=== PATIENT | male | born 1995 | race Caucasian/White ===

== ENCOUNTER 2018-02-03 02:15 | Inpatient (IN) | payer BC, OTHER ==
[2018-02-03] VITALS (12 sets, daily range): BP systolic 118–150; BP diastolic 57–80; PULSE 62–90; RESP 18–25; TEMP 97.6–98.5; O2SAT 90–100
[~2018-02-03] VITALS: Ht 188 cm; Wt 84.8 kg
[2018-02-03] MEDS ORDERED: IOHEXOL 350 MG/ML 10 ML VIAL (for RAD DIAG) IVCONTRAST ONE (02:43)
[2018-02-03 02:45] LABS: HEMATOCRIT 43.6 % (39.0-51.0); MEAN CELL VOLUME 90.6 FL (80.0-100.0); MEAN CORPUSCULAR HEMOGLOBIN 31.3 PG (27.0-34.0); MEAN CORPUSCULAR HGB CONC 34.5 % (32.0-36.0); MEAN PLATELET VOLUME 9.2 FL (7.0-11.0); PLATELET COUNT 291 TH/MM3 (150-450); RED BLOOD COUNT 4.81 MIL/MM3 (4.50-5.90); RED CELL DISTRIBUTION WIDTH 13.6 % (11.6-17.2)
[2018-02-03 02:56] LABS: INTERNATIONAL NORMALIZED RATIO 1.1 RATIO; PROTHROMBIN TIME - PATIENT 11.2 SEC (9.8-11.6)
[2018-02-03] MEDS ORDERED: MISCELLANEOUS NURSING INFORMATION XX SCH (03:00)
[2018-02-03] MEDS ORDERED: CHLORHEXIDINE GLUCONATE 2 % 1 PACK (2 CLOTHS) TOP PRN (03:00)
[2018-02-03] MEDS ORDERED: ACETAMINOPHEN/HYDROcodone 325 MG/5 MG TAB PO PRN (03:00)
[2018-02-03] MEDS ORDERED: ENALAPRILAT 1.25 MG/ML VIAL IV PUSH PRN (03:00)
--- NOTE | 2018-02-03 03:12 | RADRPT ---
EXAM DATE/TIME: 02/03/2018 02:32 [facility] COMPARISON: No previous studies available for comparison. INDICATIONS : Trauma; fall. RADIATION DOSE: 55.09 CTDIvol (mGy) MEDICAL HISTORY : Non-responsive. SURGICAL HISTORY : Non-responsive. ENCOUNTER: Initial ACUITY: 1 day PAIN SCALE: Non-responsive LOCATION: cranial TECHNIQUE: Multiple contiguous axial images were obtained of the head. Using automated exposure control and adj ustment of the mA and/or kV according to patient size, radiation dose was kept as low as reasonably a chievable to obtain optimal diagnostic quality images. DICOM format image data is available electro nically for review and comparison. FINDINGS: CEREBRUM: The ventricles are normal for age. No evidence of midline shift, mass lesion, hemorrhage or acute in farction. No extra-axial fluid collections are seen. POSTERIOR FOSSA: The cerebellum and brainstem are intact. The 4th ventricle is midline. The cerebellopontine angle i s unremarkable. EXTRACRANIAL: The visualized portion of the orbits is intact. SKULL: The calvaria is intact. No evidence of skull fracture. CONCLUSION: No acute intracranial disease. Shelton Dunham MD on February 03, 2018 at 3:08 Board Certified Radiologist. This report was verified electronically.
--- NOTE | 2018-02-03 03:13 | RADRPT ---
EXAM DATE/TIME: 02/03/2018 02:32 [facility] COMPARISON: No previous studies available for comparison. INDICATIONS : Trauma; fall RADIATION DOSE: 18.08 CTDIvol (mGy) MEDICAL HISTORY : Non-responsive. SURGICAL HISTORY : Non-responsive. ENCOUNTER: Initial ACUITY: 1 day PAIN SCALE: Non-responsive LOCATION: neck TECHNIQUE: Volumetric scanning of the cervical spine was performed. Multiplanar reconstructions in the sagittal, coronal and oblique axial planes were performed. Using automated exposure control and adjustment o f the mA and/or kV according to patient size, radiation dose was kept as low as reasonably achievable to obtain optimal diagnostic quality images. DICOM format image data is available electronically f or review and comparison. FINDINGS: VERTEBRAE: Normal vertebral body height. Left first and second rib fracture ALIGNMENT: No evidence of subluxation. C2-C3: The bony spinal canal is normal in size. No evidence of disc bulge or herniation. The neural forami na are bilaterally patent. C3-C4: The bony spinal canal is normal in size. No evidence of disc bulge or herniation. The neural forami na are bilaterally patent. C4-C5: The bony spinal canal is normal in size. No evidence of disc bulge or herniation. The neural forami na are bilaterally patent. C5-C6: The bony spinal canal is normal in size. No evidence of disc bulge or herniation. The neural forami na are bilaterally patent. C6-C7: The bony spinal canal is normal in size. No evidence of disc bulge or herniation. The neural forami na are bilaterally patent. C7-T1: The bony spinal canal is normal in size. No evidence of disc bulge or herniation. The neural forami na are bilaterally patent. CONCLUSION: 1. No fracture or subluxation. 2. Fracture of the first and second ribs on the left. Shelton Dunham MD on February 03, 2018 at 3:09 Board Certified Radiologist. This report was verified electronically.
--- NOTE | 2018-02-03 03:16 | RADRPT ---
EXAM DATE/TIME: 02/03/2018 02:39 [facility] COMPARISON: No previous studies available for comparison. INDICATIONS : Trauma. Fall. IV CONTRAST: 96 cc Omnipaque 350 (iohexol) IV ; Cumulative dose for multiple exams. ORAL CONTRAST: No oral contrast ingested. RADIATION DOSE: 18.72 CTDIvol (mGy) ; Combined studies - Thorax/Abdomen/Pelvis MEDICAL HISTORY : Non-responsive. SURGICAL HISTORY : Non-responsive. ENCOUNTER: Initial ACUITY: 1 day PAIN SCALE: Non-responsive LOCATION: abdomen TECHNIQUE: Volumetric scanning of the abdomen and pelvis was performed. Using automated exposure control and ad justment of the mA and/or kV according to patient size, radiation dose was kept as low as reasonably achievable to obtain optimal diagnostic quality images. DICOM format image data is available electro nically for review and comparison. FINDINGS: LOWER LUNGS: Clear lungs LIVER: Homogeneous density without lesion. There is no dilation of the biliary tree. No calcified gallston es. SPLEEN: Normal size without lesion. PANCREAS: Within normal limits. KIDNEYS: Normal in size and shape. There is no mass, stone or hydronephrosis. ADRENAL GLANDS: Within normal limits. VASCULAR: There is no aortic aneurysm. BOWEL/MESENTERY: The stomach, small bowel, and colon demonstrate no acute abnormality. There is no free intraperitone al air or fluid. ABDOMINAL WALL: Within normal limits. RETROPERITONEUM: There is no lymphadenopathy. BLADDER: No wall thickening or mass. REPRODUCTIVE: Within normal limits. INGUINAL: There is no lymphadenopathy or hernia. MUSCULOSKELETAL: There is fracture of L3 vertebral body with mild loss of height. There appears to be involvement of t he posterior elements. Fracture right L2 transverse process. CONCLUSION: 1. Fracture L3 vertebral body with possible involvement of the posterior elements. 2. No abdominal visceral injury. Shelton Dunham MD on February 03, 2018 at 3:10 Board Certified Radiologist. This report was verified electronically.
--- NOTE | 2018-02-03 03:19 | RADRPT ---
EXAM DATE/TIME: 02/03/2018 02:39 [facility] COMPARISON: No previous studies available for comparison. INDICATIONS : Trauma..Fall IV CONTRAST: 86 cc Omnipaque 350 (iohexol) IV ; Cumulative dose for multiple exams. RADIATION DOSE: 18.72 CTDIvol (mGy) ; Combined studies - Thorax/Abdomen/Pelvis MEDICAL HISTORY : Non-responsive. SURGICAL HISTORY : Non-responsive. ENCOUNTER: Initial ACUITY: 1 day PAIN SCALE: LOCATION: chest TECHNIQUE: Volumetric scanning of the chest was performed. Using automated exposure control and adjustment of t he mA and/or kV according to patient size, radiation dose was kept as low as reasonably achievable to obtain optimal diagnostic quality images. DICOM format image data is available electronically for review and comparison. Follow-up recommendations for detected pulmonary nodules are based at a minimum on nodule size and pa tient risk factors according to Fleischner Society Guidelines. FINDINGS: LUNGS: There is no consolidation or pneumothorax. No concerning pulmonary nodule is visualized. PLEURA: There is no pleural thickening or pleural effusion. MEDIASTINUM: The heart and great vessels demonstrate no acute abnormality. There is no mediastinal or hilar lymph adenopathy. AXILLAE: Within normal limits. No lymphadenopathy. SKELETAL: Fractures of the left first and second ribs. MISCELLANEOUS: The visualized upper abdominal organs demonstrate no acute abnormality. CONCLUSION: 1. Left first and second rib fractures. 2. No pneumothorax. Shelton Dunham MD on February 03, 2018 at 3:14 Board Certified Radiologist. This report was verified electronically.
[2018-02-03 03:22] LABS: BASOPHILS 1 % (0-2); LYMPHOCYTES 54 % (9-44); MONOCYTES 6 % (0-8); NEUTROPHIL # MANUAL DIFF 6.5 TH/MM3 (1.8-7.7); POLYS (SEG NEUTROPHILS) 38 % (16-70)
[2018-02-03] MEDS: CHLORHEXIDINE GLUCONATE 2 % 1 PACK (2 CLOTHS) TOP SCH (03:22)
--- NOTE | 2018-02-03 03:22 | RADRPT ---
EXAM DATE/TIME: 02/03/2018 02:39 [facility] COMPARISON: No previous studies available for comparison. INDICATIONS : Trauma. Fall. IV CONTRAST: 96 cc Omnipaque 350 (iohexol) IV ; Cumulative dose for multiple exams. RADIATION DOSE: ; Reconstructed from previous dataset, no dose MEDICAL HISTORY : Non-responsive. SURGICAL HISTORY : Non-responsive. ENCOUNTER: Initial ACUITY: 1 day PAIN SCALE: Non-responsive LOCATION: lumbar TECHNIQUE: Volumetric scanning of the lumbar spine was performed. Multiplanar reconstructions in the sagittal, coronal and oblique axial planes were performed. Using automated exposure control and adjustment of the mA and/or kV according to patient size, radiation dose was kept as low as reasonably achievable t o obtain optimal diagnostic quality images. DICOM format image data is available electronically for review and comparison. FINDINGS: CONUS MEDULLARIS: Normal. PARASPINAL SOFT TISSUES: There is fracture of L3 vertebral body extending into the posterior elements bilaterally. Mild loss o f height. No retropulsion of posterior fragments. There is minimal fracture right L2 transverse proce ss. LUMBAR CORD: Normal. DURAL SAC: Normal. L1-L2: The disc, uncovertebral joints, central canal, foramina, and facets are normal. L2-L3: The disc, uncovertebral joints, central canal, foramina, and facets are normal. There is frac ture of L3 vertebral body extending into the posterior elements L3-L4: Mild broad-based disc bulge without canal stenosis. L4-L5: The disc, uncovertebral joints, central canal, foramina, and facets are normal. L5-S1: The disc, uncovertebral joints, central canal, foramina, and facets are normal. CONCLUSION: 1. Fracture of L3 vertebral body with mild loss of height. Fracture does extend into the both posteri or elements. 2. Fracture of the right L2 transverse process. Shelton Dunham MD on February 03, 2018 at 3:18 Board Certified Radiologist. This report was verified electronically.
[2018-02-03] MEDS: SODIUM CHLOR 0.9% 1000 ML INJ 1,000 ML IV SCH ×3 (03:23→18:51)
[2018-02-03] MEDS: MORPHINE SULFATE 2 MG/ML INJ IV PUSH PRN ×5 (03:26→21:52)
--- NOTE | 2018-02-03 03:27 | RADRPT ---
EXAM DATE/TIME: 02/03/2018 02:16 [facility] COMPARISON: No previous studies available for comparison. INDICATIONS : Fall, trauma alert. MEDICAL HISTORY : None. SURGICAL HISTORY : None. ENCOUNTER: Initial ACUITY: 1 day PAIN SCORE: 0/10 LOCATION: Bilateral chest FINDINGS: A single view of the chest demonstrates the lungs to be symmetrically aerated without evidence of mas s, infiltrate or effusion. The cardiomediastinal contours are unremarkable. Osseous structures are intact. CONCLUSION: No acute disease. Shelton Dunham MD on February 03, 2018 at 3:25 Board Certified Radiologist. This report was verified electronically.
--- NOTE | 2018-02-03 03:27 | RADRPT ---
EXAM DATE/TIME: 02/03/2018 02:16 [facility] COMPARISON: No previous studies available for comparison. INDICATIONS : Fall, trauma alert. MEDICAL HISTORY : None. SURGICAL HISTORY : None. ENCOUNTER: Initial ACUITY: 1 day PAIN SCORE: 0/10 LOCATION: Bilateral pelvis FINDINGS: A single frontal view of the pelvis demonstrates no evidence of fracture. The bony pelvic ring is in tact. Bony mineralization is normal. The soft tissues are intact. CONCLUSION: No acute fracture. Shelton Dunham MD on February 03, 2018 at 3:25 Board Certified Radiologist. This report was verified electronically.
--- NOTE | 2018-02-03 03:30 | RADRPT ---
EXAM DATE/TIME: 02/03/2018 02:16 [facility] COMPARISON: No previous studies available for comparison. INDICATIONS : Fall, trauma alert. MEDICAL HISTORY : SURGICAL HISTORY : None. ENCOUNTER: Initial ACUITY: 1 day PAIN SCORE: 0/10 LOCATION: Left forearm FINDINGS: Two view examination of the left forearm demonstrates displaced fractures of the mid shafts of the ra dius and ulna. There also appears to be fracture of triquetrum carpal bone. Bony mineralization is n ormal. The soft tissue structures are intact. CONCLUSION: 1. Displaced fractures of midshaft radius and ulna. 2. There also appears to be fractures of triquetrum carpal bone. Shelton Dunham MD on February 03, 2018 at 3:25 Board Certified Radiologist. This report was verified electronically.
--- NOTE | 2018-02-03 03:31 | RADRPT ---
EXAM DATE/TIME: 02/03/2018 02:16 [facility] COMPARISON: No previous studies available for comparison. INDICATIONS : Fall trauma alert. MEDICAL HISTORY : None. SURGICAL HISTORY : None. ENCOUNTER: Initial ACUITY: 1 day PAIN SCORE: 0/10 LOCATION: Right forearm FINDINGS: Two view examination of the right forearm demonstrates no evidence of fracture or dislocation. There does appear to be possible dislocation of the carpus. Bony mineralization is normal. The soft tissu e structures are intact. CONCLUSION: No acute fracture of the forearm. Appears to be dislocation at the wrist. Dedicated views of the wris t is recommended. Shelton Dunham MD on February 03, 2018 at 3:27 Board Certified Radiologist. This report was verified electronically.
--- NOTE | 2018-02-03 03:37 | RADRPT ---
EXAM DATE/TIME: 02/03/2018 02:39 [facility] COMPARISON: No previous studies available for comparison. INDICATIONS : Trauma. Fall. IV CONTRAST: 96 cc Omnipaque 350 (iohexol) IV ; Cumulative dose for multiple exams. RADIATION DOSE: ; Reconstructed from previous dataset, no dose MEDICAL HISTORY : Non-responsive. SURGICAL HISTORY : Non-responsive. ENCOUNTER: Initial ACUITY: 1 day PAIN SCALE: Non-responsive LOCATION: thoracic TECHNIQUE: Volumetric scanning of the thoracic spine was performed. Multiplanar reconstructions in the sagittal , coronal and oblique axial planes were performed. Using automated exposure control and adjustment o f the mA and/or kV according to patient size, radiation dose was kept as low as reasonably achievable to obtain optimal diagnostic quality images. DICOM format image data is available electronically fo r review and comparison. FINDINGS: The vertebral bodies of the thoracic spine are in normal alignment without evidence of subluxation. Vertebral body height is maintained. No fractures are seen. Minimal fracture lower sternum. Fracture s of the left or second ribs T1-T2: Normal. T2-T3: The thecal sac has a normal diameter. No evidence of disc bulge or protrusion. T3-T4: The thecal sac has a normal diameter. No evidence of disc bulge or protrusion. T4-T5: The thecal sac has a normal diameter. No evidence of disc bulge or protrusion. T5-T6: The thecal sac has a normal diameter. No evidence of disc bulge or protrusion. T6-T7: The thecal sac has a normal diameter. No evidence of disc bulge or protrusion. T7-T8: The thecal sac has a normal diameter. No evidence of disc bulge or protrusion. T8-T9: The thecal sac has a normal diameter. No evidence of disc bulge or protrusion. T9-T10: The thecal sac has a normal diameter. No evidence of disc bulge or protrusion. T10-T11: The thecal sac has a normal diameter. No evidence of disc bulge or protrusion. T11-T12: The thecal sac has a normal diameter. No evidence of disc bulge or protrusion. T12-L1: The thecal sac has a normal diameter. No evidence of disc bulge or protrusion. CONCLUSION: 1. Fractures of the left first and second ribs. 2. Minimal fracture of the lower sternum. 3. No compression fracture of thoracic spine. Shelton Dunham MD on February 03, 2018 at 3:30 Board Certified Radiologist. This report was verified electronically.
[2018-02-03] MEDS: MULTIVITAMIN INJ 10 ML, THIAMINE INJ 100 MG, FOLIC ACID INJ 1 MG in SODIUM CHLORID 0.9%... IV SCH (05:30)
[2018-02-03] MEDS: ACETAMINOPHEN/HYDROcodone 325 MG/5 MG TAB PO PRN ×4 (05:54→23:43)
[2018-02-03] MEDS ORDERED: RESP: ALBUTEROL 2.5 MG/IPRATROPIUM 0.5 MG NEB (PRN) NEB (06:45)
[2018-02-03] MEDS: LIDOCAINE HCL 5% PATCH T-DERMAL SCH (08:25)
[2018-02-03] MEDS: DOCUSATE SODIUM 100 MG CAP PO SCH ×2 (08:25→21:51)
[2018-02-03] MEDS: METHOCARBAMOL 500 MG TAB PO SCH ×3 (08:25→21:52)
[2018-02-03] MEDS: ONDANSETRON HCL 4 MG/2 ML VIAL IV PUSH PRN ×3 (08:26→21:52)
[2018-02-03] MEDS: SODIUM CHLORIDE FLUSH BID IV FLUSH SCH ×2 (08:26→21:53)
[2018-02-03] MEDS: PANTOPRAZOLE SODIUM 40 MG VIAL IVP SCH (08:26)
--- NOTE | 2018-02-03 09:39 | RADRPT ---
EXAM DATE/TIME: 02/03/2018 09:15 [facility] COMPARISON: FOREARM RIGHT (2VWS), February 03, 2018, 2:16. INDICATIONS : Right wrist pain, trauma alert. MEDICAL HISTORY : None. SURGICAL HISTORY : None. ENCOUNTER: Subsequent ACUITY: 1 day PAIN SCORE: 7/10 LOCATION: Right Wrist FINDINGS: Limited AP and lateral views of the right wrist were obtained. The wrist has been casted obscuring th e fine bony detail. The lateral view is mildly obliqued. There is a nondisplaced fracture through the base of the ulnar styloid. There is evidence of dislocation of the carpus with the capitate dislocat ed posteriorly with respect to the lunate. The scapholunate distance is abnormally wide and measures up to approximately 6-7 mm. No distinct carpal bone fracture is identified. The distal radius is inta ct. The visualized portions of the hand appear intact as well. CONCLUSION: 1. Limited two-view rotated exam. 2. Carpal dislocation. 3. Abnormal widening of the scapholunate distance consistent with scapholunate ligament tear. 4. Nondisplaced fracture through the base of the ulnar styloid. Lucas Tavarez MD on February 03, 2018 at 9:32 Board Certified Radiologist. This report was verified electronically.
[2018-02-03] MEDS: RESP: ALBUTEROL 2.5 MG/IPRATROPIUM 0.5 MG NEB (SCH) NEB ×3 (11:01→21:22)
--- NOTE | 2018-02-03 11:21 | PD.CONS ---
(J Carlos Sauer) [facility] Service Neurosurgery Consult Requested By Desmond Guidry MD Reason for Consult Lumbar spine fracture Primary Care Physician Unknown History of Present Illness Patient states that he was at [employer] with friends which is the last thing he remembers. The next thing he remembers is waking up in the bed in the [facility]SC unit. He does have some pain to the lower back and the neck. He denies any numbness or tingling to the extremities except for the fingertips. Mechanism unknown. (J Carlos Sauer) Review of Systems CONSTITUTIONAL: Denies. INTEGUMENTARY: Abrasions to the right ankle and hands. HEENT: Denies. NECK: Some pain to the back of the neck. RESPIRATORY/CHEST WALL: Some pain to the mid chest wall. CARDIOVASCULAR: Denies. GASTROINTESTINAL: Denies. GENITOURINARY: Denies. MUSCULOSKELETAL: Pain to the lower back and both forearms. HAEMATOLOGICAL/LYMPHATIC: Denies. PSYCHIATRIC: Denies. NEUROLOGICAL: Numbness to the digits of both hands. (J Carlos Sauer) Past Family Social History Allergies: Coded Allergies: No Known Allergies (Unverified , 02/03/18) Past Medical History None Past Surgical History Left knee (multiple) Appendectomy Reported Medications None Active Ordered Medications Current Medications Medications (Trade) Dose Ordered Sig/Joselito Route Start Time Stop Time Status Last Admin Sodium Chloride 1,000 ml @ 125 mls/hr Q8H IV 02/03/18 02:51 02/03/18 10:51 (NS Flush) 2 ml UNSCH PRN IV FLUSH 02/03/18 03:00 (Morphine Inj) 2 mg Q3H PRN IV PUSH 02/03/18 03:15 02/03/18 08:25 (Atkinson 5-325 Mg) 1 tab Q4H PRN PO 02/03/18 03:00 (Atkinson 5-325 Mg) 2 tab Q4H PRN PO 02/03/18 03:00 02/03/18 05:54 (Vasotec Inj) 1.25 mg Q8H PRN IV PUSH 02/03/18 03:00 (Zofran Inj) 4 mg Q6H PRN IV PUSH 02/03/18 03:00 02/03/18 08:26 (Protonix Inj) 40 mg Q24H IVP 02/03/18 09:00 02/03/18 08:26 Multivitamins 10 ml/Thiamine HCl 100 mg/Folic Acid 1 mg/Sodium Chloride 511.2 ml @ 125 mls/hr Q24H IV 02/03/18 05:00 02/05/18 09:06 02/03/18 05:30 (Colace) 100 mg BID PO 02/03/18 09:00 02/03/18 08:25 (Milk Of Magnesia Liq) 30 ml Q6H PRN PO 02/03/18 03:00 Miscellaneous Information 1 Q361D XX 02/03/18 03:00 (Chlorhexidine 2% Cloth) 3 pack Taper DAILY@04 TOP 02/03/18 04:00 01/30/19 03:59 (Chlorhexidine 2% Cloth) 3 pack UNSCH PRN TOP 02/03/18 03:00 (NS Flush) 2 ml BID IV FLUSH 02/03/18 09:00 02/03/18 08:26 (Robaxin) 500 mg Q8HR PO 02/03/18 06:45 02/03/18 08:25 (Lidoderm 5% Patch.12 Hr) 1 patch DAILY T-DERMAL 02/03/18 09:00 02/03/18 08:25 (Duoneb Neb) 1 ampule Q6HR NEB NEB 02/03/18 10:00 02/03/18 11:01 (Duoneb Neb) 1 ampule Q2HR NEB PRN NEB 02/03/18 06:45 Miscellaneous Information 1 Q24H T-DERMAL 02/03/18 21:00 Family History Father: Type II diabetes mellitus Paternal grandfather: Heart problems Maternal grandmother: Colon cancer Social History Student, lives on campus ([employer] in [place]) Denies tobacco Positive EtOH Denies any illicit drug use (J Carlos Sauer) Physical Exam Vital Signs Vital Signs Date Time Temp Pulse Resp B/P (MAP) Pulse Ox O2 Delivery O2 Flow Rate FiO2 02/03/18 08:30 24 02/03/18 06:00 62 3/26/18 04:00 97.6 78 23 118/57 (77) 96 02/03/18 03:00 97.6 90 18 135/80 (98) 97 02/03/18 03:00 80 02/03/18 03:00 Room Air Physical Exam GENERAL: Well-developed, well-nourished male who appears his stated age. SKIN: Abrasions to the digits of both hands and to the right lateral malleolus. Superficial suprapubic and RUQ abrasions. HEENT: Normocephalic, atraumatic. PERRLA 3 mm brisk, EOMI. Bilateral TMs clear & pearly ely, no external canal lesions bilaterally, no otorrhea. Bilateral nares moist & pink, no rhinorrhea. MMM & pink, no evident oral lesions, uvula midline, tongue midline to protrusion. NECK: [place] J cervical collar in place. Mild TTP at the cervicothoracic junction w/tenderness to the right side of the area upon rotation of the neck to the left. Neck supple. No nuchal rigidity. No JVD. Trachea midline. RESPIRATORY/CHEST WALL: CTAB w/o W/R/R, equal excursion, nonlaboured, on RA. Mid -to-lower sternum TTP o/w the chest wall is NTTP. CARDIOVASCULAR: S1S2 w/RRR w/o M/G/R, pedal pulses 2+ bilaterally but unable to check radials due to splints, cap refill < 2 sec, no pedal edema. Monitor is sinus rhythm w/o any ectopy noted. GASTROINTESTINAL: Abdomen soft, nontender, no palpable masses or organomegaly, positive bowel sounds to all quadrants. GENITOURINARY: Normal male genitalia. [place] catheter to BSD w/clear yellow urine. MUSCULOSKELETAL: Bilateral forearms in splints. Bilateral arms & lower extremities NTTP. Moves digits of both hands w/o difficulty. Moves BLE w/o any difficulty. Mildly TTP to the upper midline thoracic spine. Moderately TTP to the mdiline lumbar spine decreasing as palpated inferiorly. Pelvis stable & NTTP. HAEMATOLOGICAL/LYMPHATIC: No bruising noted. No swollen glands palpated. PSYCHIATRIC: Normal affect. Readily interacts. NEUROLOGICAL: AAOx3. Speech clear & appropriate. Follows simple commands w/o difficulty. CN II through XII grossly intact. Sensation decreased to digits of both hands o/w intact to light touch to all extremities. Unable to asses motor strength of BUE due to injuries but does move digits of both hands without difficulty. Motor strength of BLE is 5/5 to all major flexion & extension muscle groups. No Brenda's on right but unable to assess left due to thumb being in splint. No ankle clonus bilaterally. Neutral Babinski bilaterally. Laboratory Laboratory Tests Test 02/03/18 02:20 02/03/18 03:00 White Blood Count 17.0 Red Blood Count 4.81 Hemoglobin 15.0 Bedside Hemoglobin 14.6 Hematocrit 43.6 Bedside Hematocrit 43.0 Mean Corpuscular Volume 90.6 Mean Corpuscular Hemoglobin 31.3 Mean Corpuscular Hemoglobin Concent 34.5 Red Cell Distribution Width 13.6 Platelet Count 291 Mean Platelet Volume 9.2 CBC Comment AUTO DIFF Differential Total Cells Counted 100 Neutrophils % (Manual) 38 Lymphocytes % 54 Monocytes % 6 Eosinophils % 1 Basophils % 1 Neutrophils # (Manual) 6.5 Differential Comment FINAL DIFF MANUAL Platelet Estimate NORMAL Platelet Morphology Comment NORMAL Red Cell Morphology Comment NORMAL Prothrombin Time 11.2 Prothromb Time International Ratio 1.1 Activated Partial Thromboplast Time 25.7 Bedside Sodium 142 Bedside Potassium 3.6 Bedside Chloride 103 Bedside Blood Urea Nitrogen 14 Bedside Creatinine 1.6 Bedside Glucose 152 Nasal Screen MRSA (PCR) MRSA NOT DETECTED (J Carlos Sauer) Result Diagram: 02/03/18 0220 Imaging This practitioner reviewed the following CT scans completed this morning: CT brain was unremarkable for any acute findings. CT cervical spine was unremarkable for any acute cervical spine findings but left-sided 1st & 2nd rib fractures were noted. CT thoracic spine was unremarkable for any acute thoracic spine findings but left-sided 1st & 2nd rib fractures were noted. The Radiologist report did note a lower sternum fracture as well. CT lumbar spine demonstrated an L3 vertebral body fracture w/minimal loss of height. The Radiologist report did note a right L2 transverse process fracture as well. (J Carlos Sauer) Assessment and Plan Assessment and Plan Impression: 1.) Multi-trauma, unknown mechanism 2.) Concussion w/loss of consciousness, unknown period of time 3.) L3 vertebral body fracture 4.) Right L2 transverse process fracture 5.) Lower sternum fracture 6.) Left 1st & 2nd rib fractures 7.) Right carpus dislocation 8.) Left radius fracture 9.) Left ulna fracture 10.) Left triquetrum carpal bone fracture 11.) Thoracolumbar junction pain The patient is awake and alert. Pain to the lower back w/o any LE neurological findings. Numbness to the digits of both hands. Mild pain to the cervicothoracic junction. Reviewed labs for today. Leukocytosis most likely secondary to trauma. INR 1.1 & aPTT 25.7. Elevated creatinine. CT brain unremarkable for any acute findings. CT cervical spine unremarkable for any acute cervical spine findings , noted are left-sided 1st & 2nd rib fractures. CT thoracic spine unremarkable for any acute thoracic spine findings , noted are a lower sternum and left-sided 1st & 2nd rib fractures. CT lumbar spine demonstrates an L3 vertebral body fracture w/minimal loss of height as well as a right L2 transverse process fracture. Plan: Primary & critical care management per Trauma. Neuro checks. Stat CT brain for any decline in neuro/mental status. NPO except for meds. Bedrest. Cervical & lumbar spine precautions. Logroll patient. Keep patient flat, do not turn [id number]. Continue [place] J cervical collar. Hold pharmacologic DVT prophylaxis. Mechanical DVT prophylaxis. Stress ulcer prophylaxis. Continue IVF per Trauma. Pain medication per Trauma. (J Carlos Sauer) Attending Statement The exam, history, and the medical decision-making described in the above note were completed with the assistance of the mid-level provider. I reviewed and agree with the findings presented. I attest that I had a [id number] encounter with the patient on the same day, and personally performed and documented my assessment and findings in the medical record. The patient was seen and examined by the undersigned on 02/03/18 in the presence of his parents. He is awake and alert Cranial nerves II through XII fully tested and intact His speech is clear and appropriate Upper extremities are in a cast bilateral. He has good sensation in his fingers and moves his fingers with good strength. Lower extremity sensation to light touch is intact Strength is normal in all major flexion-extension pipe foreman as well as inversion/ eversion right and left foot in the lower extremities. No lower extremity edema or cyanosis. Dorsalis pedis pulses 2+ bilateral The patient's CT scan images were reviewed with the patient and his family. The study reveals a relatively mild overall superior L3 compression fracture without significant retropulsion. However the fracture line extends through the posterior superior aspect of the L3 vertebral body into the right and left pedicle and superior facet. There is moderate separation of primarily the component of the fracture through the pedicle. An MRI of the lumbar spine has been requested to better assess integrity of the posterior ligamentous structures. I advised them that if the annulus and posterior ligaments are intact, then this would fall into an intermediate range fracture as far as stability and treatment, and may potentially be able to be treated with either conservative or surgical measures. A TLSO brace has been requested. (Daniel Tyson MD) J Carlos Sauer Feb 03, 2018 11:21 Daniel Tyson MD Feb 03, 2018 23:05
[2018-02-03] MEDS: SODIUM CHLORIDE 0.9% FLUSH 10 ML FLUSH IV FLUSH PRN (14:02)
--- NOTE | 2018-02-03 17:51 | HHI.CCPN ---
Subjective Brief History [place]: This is a 22-year-old male who was out with friend last night at a local club. The patient does not remember anything past that. We are told he either jumped or fell from his sixth story balcony, and landed on the third floor. INJURIES: Sternum fx LEFT rib fx (1,2) L2 transverse process fx L3 vertebral body fx LEFT radius/ulna fx LEFT triquetrum carpal bone RIGHT carpus/wrist dislocation 24 Hour Review/Hospital Course 02/03/2018 PTD: 0 Patient lying in bed. No distress noted. Bilateral arms in splint and wrapped with Fabio bandage. Patient is able to move all extremities well and to command. He does complain of tingling in his right hand. Additionally, patient complains of pain in his back. Objective Vital Signs Date Time Temp Pulse Resp B/P (MAP) Pulse Ox O2 Delivery O2 Flow Rate FiO2 02/03/18 14:07 23 02/03/18 12:00 78 02/03/18 12:00 98.1 143/64 (90) 97 02/03/18 07:00 Room Air Intake and Output 02/03/18 02/03/18 02/04/18 08:00 16:00 00:00 Intake Total 0 ml Output Total 0 ml Balance 0 ml Result Diagram: 02/03/18219 Imaging Last 24 hours Impressions Thoracic Spine CT 02/03/18221 Signed Impressions: Service Date/Time: Saturday, February 03, 2018 02:39 - CONCLUSION: 1. Fractures of the left first and second ribs. 2. Minimal fracture of the lower sternum. 3. No compression fracture of thoracic spine. Shelton Dunham MD Pelvis X-Ray 02/03/18221 Signed Impressions: Service Date/Time: Saturday, February 03, 2018 02:16 - CONCLUSION: No acute fracture. Shelton Dunham MD Lumbar Spine CT 02/03/18221 Signed Impressions: Service Date/Time: Saturday, February 03, 2018 02:39 - CONCLUSION: 1. Fracture of L3 vertebral body with mild loss of height. Fracture does extend into the both posterior elements. 2. Fracture of the right L2 transverse process. Shelton Dunham MD Head CT 02/03/18221 Signed Impressions: Service Date/Time: Saturday, February 03, 2018 02:32 - CONCLUSION: No acute intracranial disease. Shelton Dunham MD Chest X-Ray 02/03/18221 Signed Impressions: Service Date/Time: Saturday, February 03, 2018 02:16 - CONCLUSION: No acute disease. Shelton Dunham MD Chest CT 02/03/18221 Signed Impressions: Service Date/Time: Saturday, February 03, 2018 02:39 - CONCLUSION: 1. Left first and second rib fractures. 2. No pneumothorax. Shelton Dunham MD Cervical Spine CT 02/03/18221 Signed Impressions: Service Date/Time: Saturday, February 03, 2018 02:32 - CONCLUSION: 1. No fracture or subluxation. 2. Fracture of the first and second ribs on the left. Shelton Dunham MD Abdomen/Pelvis CT 02/03/18221 Signed Impressions: Service Date/Time: Saturday, February 03, 2018 02:39 - CONCLUSION: 1. Fracture L3 vertebral body with possible involvement of the posterior elements. 2. No abdominal visceral injury. Shelton Dunham MD Radius/Ulna X-Ray 02/03/18 Signed Impressions: Service Date/Time: Saturday, February 03, 2018 02:16 - CONCLUSION: No acute fracture of the forearm. Appears to be dislocation at the wrist. Dedicated views of the wrist is recommended. Shelton Dunham MD Radius/Ulna X-Ray 02/03/18 Signed Impressions: Service Date/Time: Saturday, February 03, 2018 02:16 - CONCLUSION: 1. Displaced fractures of midshaft radius and ulna. 2. There also appears to be fractures of triquetrum carpal bone. Shelton Dunham MD Objective Remarks GENERAL: This is a 22-year-old male lying in bed. No distress noted. SKIN: Warm and dry. HEAD: Atraumatic. Normocephalic. EYES: PERRLA ENT: No nasal bleeding or discharge. Mucous membranes pink and moist. NECK: Trachea midline. No JVD. [place] J collar in place. CARDIOVASCULAR: Regular rate and rhythm. RESPIRATORY: No accessory muscle use. Lungs are clear to auscultation. Breath sounds equal bilaterally. No distress or dyspnea. GASTROINTESTINAL: BS + x 4 quads. Abdomen soft, non-tender, nondistended. MUSCULOSKELETAL: Extremities without cyanosis, or edema. Bilateral arms and splints and wrapped with Fabio bandage. + peripheral pulses x 4 extremities. Warm with good capillary refill and sensation. MAEW. NEUROLOGICAL: Awake and alert. Normal speech and pattern. Urinary Catheter Assessment Urinary Catheter: Yes Assessment to: Continue Date of Insertion: Feb 03, 2018 Vascular Central Line Catheter Vascular Central Line Catheter: No Assessment and Plan Assessment: (1) Sternum fx ICD Code: S22.20XA - Unspecified fracture of sternum, initial encounter for closed fracture Status: Acute (2) Left rib fracture ICD Code: S22.32XA - Fracture of one rib, left side, initial encounter for closed fracture Status: Acute (3) Fracture of L2 vertebra ICD Code: S32.029A - Unspecified fracture of second lumbar vertebra, initial encounter for closed fracture (4) L3 vertebral fracture ICD Code: S32.039A - Unspecified fracture of third lumbar vertebra, initial encounter for closed fracture Status: Acute (5) Closed fracture of head of left ulna ICD Code: S52.602A - Unspecified fracture of lower end of left ulna, initial encounter for closed fracture Status: Acute (6) Dislocation of right wrist ICD Code: S63.004A - Unspecified dislocation of right wrist and hand, initial encounter Status: Acute Plan [place]: This is a 22-year-old male who was out at a club. Returned home. Fell/jumped from a 6 story balcony and landed on the third floor. INJURIES: Sternum fx LEFT rib fx (1,2) L2 transverse process fx L3 vertebral body fx LEFT radius/ulna fx LEFT triquetrum carpal bone RIGHT carpus/wrist dislocation Procedures: Consults: Neurosurgery. Orthopedics. Case management. Diet: NPO Pulmonary: Encourage good pulmonary toileting. IS and acapella at bedside and pt encouraged to use. Rationale for use explained to patient, and verbalized understanding. Duo nebs. PAIN Management: [place] 5-10 mg q 4h. Morphine 2 mg q 3h. Robaxin 500 mg q 8h. Lidocaine patch Activity: BR. PT and OT ordered. Log roll only GI prophylaxis: Protonix IV Bowel regimen: Colace and MOM. LBM: 0 DVT prophylaxis: Mechanical VTE with SCDs. Chemical management TBD. DC Planning: Case management consulted for assistance with final discharge disposition. Emotional support provided to patient and family at bedside and plan of care discussed. Discussed with [employer] at bedside during trauma rounds. Discussed pt condition and plan of care with collaborating trauma surgeon. Patient is currently managed in the trauma ICU.. The trauma team will round each day, and evaluate plan of care on a daily basis. Problem Qualifiers (1) Sternum fx: Qualified Codes: S22.20XA - Unspecified fracture of sternum, initial encounter for closed fracture (2) Left rib fracture: Qualified Codes: S22.42XA - Multiple fractures of ribs, left side, initial encounter for closed fracture (3) Fracture of L2 vertebra: Qualified Codes: S32.029A - Unspecified fracture of second lumbar vertebra, initial encounter for closed fracture (4) L3 vertebral fracture: Qualified Codes: S32.039A - Unspecified fracture of third lumbar vertebra, initial encounter for closed fracture (5) Closed fracture of head of left ulna: Qualified Codes: S52.602A - Unspecified fracture of lower end of left ulna, initial encounter for closed fracture (6) Dislocation of right wrist: Qualified Codes: S63.004A - Unspecified dislocation of right wrist and hand, initial encounter Gudelia Al Feb 03, 2018 17:51
--- NOTE | 2018-02-03 19:04 | RADRPT ---
EXAM DATE/TIME: 02/03/2018 18:04 [facility] COMPARISON: No previous studies available for comparison. INDICATIONS : Post reduction right wrist MEDICAL HISTORY : None. SURGICAL HISTORY : None. ENCOUNTER: Subsequent ACUITY: 1 day PAIN SCORE: 0/10 LOCATION: Right Wrist FINDINGS: There is a posterior perilunate dislocation with a capitate displaced posteriorly. Abnormal widening of the scapholunate interval. Ulnar styloid fracture present. Overlying cast. CONCLUSION: 1. Carpal dislocation as above. Amando Fuentes MD on February 03, 2018 at 19:00 Board Certified Radiologist. This report was verified electronically.
[2018-02-03] MEDS: REMOVE OLD LIDOCAINE PATCH T-DERMAL SCH (21:00)
[2018-02-04] VITALS (12 sets, daily range): BP systolic 146–173; BP diastolic 67–75; PULSE 67–88; RESP 12–25; TEMP 98.1–98.7; O2SAT 94–100
--- NOTE | 2018-02-04 01:26 | PD ---
HPI Chief Complaint: Trauma (Alert) Time Seen by Provider: 02:31 Travel History International Travel<30 days: No (Unknown) Contact w/Intl Traveler<30days: No (Unknown) Traveled to known affect area: No (Unknown) History of Present Illness HPI This is a 22-year-old male who presents via EMS as a trauma alert. The patient was apparently on the sixth floor balcony of the hotel where he somehow fell off landing on the third floor roof below him. When paramedics arrived, they found the patient to have a GCS of 8. They reported that he appeared intoxicated. He had obvious deformity of the left forearm and right wrist. Permit also report that fire medics thought they felt a step-off in his lower lumbar area. When patient arrived he was a GCS of 14. Allergies-Medications (Allergen,Severity, Reaction): Coded Allergies: No Known Allergies (Unverified , 02/03/18) Review of Systems ROS Limitations: Clinical Condition (Review of systems limited secondary to clinical condition.) Except as stated in HPI: all other systems reviewed are Neg Cardiovascular: Positive: Chest Pain or Discomfort (Chest wall pain on the anterior sternal area.) Respiratory: No: Cough, Shortness of Breath Gastrointestinal: No: Nausea, Vomiting, Abdominal Pain Genitourinary: No: Incontinence Musculoskeletal: Positive: Limited ROM (Secondary to pain), Pain (Bilateral upper extremities and upper and lower back.), No: Weakness Neurologic: Positive: Change in Mentation, No: Focal Abnormalities, Headache, Incontinence, Sensory Disturbance Psychiatric: Positive: Substance Abuse (Admits to drinking alcohol) Physical Exam Narrative GENERAL: Well-developed well-nourished male brought in in C-spine backboard immobilization. SKIN: Focused skin assessment warm/dry. HEAD: Atraumatic. Normocephalic. EYES: Pupils equal and round at 4 mm. The patient had his eyes closed but would open to command. No scleral icterus. No injection or drainage. ENT: No nasal bleeding or discharge. No nasal bleeding. NECK: Trachea midline. C-collar mobilization CARDIOVASCULAR: Regular rate and rhythm. No murmur appreciated. RESPIRATORY: No accessory muscle use. Clear to auscultation. Breath sounds equal bilaterally. Decreased respiratory effort. GASTROINTESTINAL: Abdomen soft, nondistended. The patient had mild discomfort in his mid abdominal wall area. No bruising or abrasions appreciated. No pulsatile masses. MUSCULOSKELETAL: Obvious deformity to the left mid forearm. Patient had on arrival questionable deformity of his right wrist. Cap refill was less than 3 seconds on all 4 extremities. NEUROLOGICAL: Awake and somewhat lethargic however able to answer questions. He knew his name and was able to tell us where he was from.. No obvious cranial nerve deficits. Motor grossly within normal limits. Normal speech. Data Data Orders Orders I-Stat Profile (02/03/18 02:22) Complete Blood Count With Diff (02/03/18 02:22) Prothrombin Time / Inr (Pt) (02/03/18 02:22) Act Partial Throm Time (Ptt) (02/03/18 02:22) Type And Screen (02/03/18 02:22) Chest, Single Ap (02/03/18 02:22) Pelvis, Ap Only (Routine) (02/03/18 02:22) Ct Brain W/O Iv Contrast(Rout) (02/03/18 02:22) Ct Cerv Spine W/O Contrast (02/03/18 02:22) Ct Abd/Pel W Iv Contrast(Rout) (02/03/18 02:22) Ct Thorax/ Chest W Iv Contrast (02/03/18 02:22) Ct Thor Spine W Iv Contrast (02/03/18 02:22) Ct Lumb Spine W Iv Contrast (02/03/18 02:22) Iv Access Insert/Monitor (02/03/18 02:22) Ecg Monitoring (02/03/18 02:22) Oximetry (02/03/18 02:22) Oxygen Administration (02/03/18 02:22) Forearm (2vws) (02/03/18 ) Forearm (2vws) (02/03/18 ) Collar Foard (02/03/18 ) Sling Cradle Arm (02/03/18 ) Fiberglass Sugartong Sp Ad Arm (02/03/18 ) Admit Order (Ed Use Only) (02/03/18 02:53) Labs Laboratory Tests Test 02/03/18 02:20 White Blood Count 17.0 TH/MM3 Red Blood Count 4.81 MIL/MM3 Hemoglobin 15.0 GM/DL Bedside Hemoglobin 14.6 G/DL Hematocrit 43.6 % Bedside Hematocrit 43.0 % Mean Corpuscular Volume 90.6 FL Mean Corpuscular Hemoglobin 31.3 PG Mean Corpuscular Hemoglobin Concent 34.5 % Red Cell Distribution Width 13.6 % Platelet Count 291 TH/MM3 Mean Platelet Volume 9.2 FL CBC Comment AUTO DIFF Differential Total Cells Counted 100 Neutrophils % (Manual) 38 % Lymphocytes % 54 % Monocytes % 6 % Eosinophils % 1 % Basophils % 1 % Neutrophils # (Manual) 6.5 TH/MM3 Differential Comment FINAL DIFF MANUAL Platelet Estimate NORMAL Platelet Morphology Comment NORMAL Red Cell Morphology Comment NORMAL Prothrombin Time 11.2 SEC Prothromb Time International Ratio 1.1 RATIO Activated Partial Thromboplast Time 25.7 SEC Bedside Sodium 142 MMOL/L Bedside Potassium 3.6 MMOL/L Bedside Chloride 103 MMOL/L Bedside Blood Urea Nitrogen 14 MG/DL Bedside Creatinine 1.6 MG/DL Bedside Glucose 152 MG/DL [facility] Medical Screen Exam Complete: Yes Emergency Medical Condition: Yes Differential Diagnosis Intracranial injury versus spinal injury versus extremity injury versus intra- abdominal injury Narrative Course 22-year-old male brought in as a trauma alert. Patient reportedly fell off a 6 story balcony onto the third floor roof below him. The patient was initially with a Maira Coma Scale of 8. Upon arrival he had a Maira Coma Scale of 14. CT scan of the brain and cervical spine showed no evidence of acute injury. He does have evidence of a L3 vertebral fracture. He also has a left first and second rib fracture. There is also a sternal fracture. There is a closed fracture of the left radius and ulna. There is suspicion for a dislocation of the right wrist however this was reduced when we splinted him. The patient was evaluated by Dr. Claros, on-call trauma surgeon as well as myself. He will be taken to the intensive care unit. At this point he was moving his extremities. There is no evidence of neuro deficit at the time of his presentation. Critical Care Narrative Aggregate critical care time was 60 minutes. Time to perform other separately billable procedures was not included in the critical care time. My time did not include minutes spent treating any other patients simultaneously or on activities that did not directly contribute to the patient's treatment. The services I provided to this patient were to treat and/or prevent clinically significant deterioration that could result in: I provided critical care services requiring my management, as noted below: Chart data review, documentation time, medication orders and management, vital sign assessments/reviewing monitor data, ordering and reviewing lab tests, ordering and interpreting/reviewing x-rays and diagnostic studies, care of the patient and discussion of the patient with the admitting physicians. Diagnosis Diagnosis: Primary Impression: L3 vertebral fracture Qualified Codes: S32.039A - Unspecified fracture of third lumbar vertebra, initial encounter for closed fracture Additional Impressions: Left first and second rib fractures Dislocation of right wrist Qualified Codes: S63.004A - Unspecified dislocation of right wrist and hand, initial encounter Closed fracture of middle of left radius and ulna Sternum fx Qualified Codes: S22.20XA - Unspecified fracture of sternum, initial encounter for closed fracture Questionable L2 vertebral fracture Mechanical fall greater than 20 feet Admitting Physician Requests: Admit Ruy Son MD Feb 04, 2018 01:26
[2018-02-04] MEDS: SODIUM CHLOR 0.9% 1000 ML INJ 1,000 ML IV SCH ×3 (02:09→18:13)
[2018-02-04] MEDS: MORPHINE SULFATE 2 MG/ML INJ IV PUSH PRN ×4 (02:44→11:29)
[2018-02-04] MEDS: RESP: ALBUTEROL 2.5 MG/IPRATROPIUM 0.5 MG NEB (SCH) NEB ×4 (03:10→21:26)
[2018-02-04] MEDS: ACETAMINOPHEN/HYDROcodone 325 MG/5 MG TAB PO PRN ×2 (03:57→09:26)
[2018-02-04] MEDS: CHLORHEXIDINE GLUCONATE 2 % 1 PACK (2 CLOTHS) TOP SCH ×2 (04:00→23:49)
[2018-02-04 04:26] LABS: AUTOMATED NEUTROPHIL # 7.5 TH/MM3 (1.8-7.7); BASOPHIL % 0.2 % (0.0-2.0); EOSINOPHIL % 0.4 % (0.0-4.0); HEMATOCRIT 38.4 % (39.0-51.0); HEMOGLOBIN 13.5 GM/DL (13.0-17.0); LYMPH % 18.3 % (9.0-44.0); MEAN CELL VOLUME 89.6 FL (80.0-100.0); MEAN CORPUSCULAR HEMOGLOBIN 31.5 PG (27.0-34.0); MEAN CORPUSCULAR HGB CONC 35.2 % (32.0-36.0); MEAN PLATELET VOLUME 9.4 FL (7.0-11.0); MONO % 11.5 % (0.0-8.0); MONOCYTE # 1.2 TH/MM3 (0-0.9); NEUT % 69.6 % (16.0-70.0); PLATELET COUNT 178 TH/MM3 (150-450); RED BLOOD COUNT 4.29 MIL/MM3 (4.50-5.90); RED CELL DISTRIBUTION WIDTH 13.7 % (11.6-17.2); WHITE BLOOD COUNT 10.7 TH/MM3 (4.0-11.0)
[2018-02-04 04:52] LABS: ALBUMIN 3.8 GM/DL (3.4-5.0); ALT (GPT) 67 U/L (9-52); AST (GOT) 104 U/L (15-39); BICARBONATE 24.2 MEQ/L (21.0-32.0); BLOOD UREA NITROGEN 13 MG/DL (7-18); CALCIUM 8.4 MG/DL (8.5-10.1); CHLORIDE 102 MEQ/L (98-107); CREATININE 0.86 MG/DL (0.60-1.30); GLOMERULAR FILTRATION RATE 113 ML/MIN (>89); GLUCOSE,RANDOM 107 MG/DL (74-106); SODIUM (NA) 136 MEQ/L (136-145)
[2018-02-04 04:55] LABS: ALKALINE PHOSPHATASE 91 U/L (45-117); TOTAL BILIRUBIN ADULT 1.4 MG/DL (0.2-1.0); TOTAL PROTEIN 7.3 GM/DL (6.4-8.2)
[2018-02-04] MEDS: MULTIVITAMIN INJ 10 ML, THIAMINE INJ 100 MG, FOLIC ACID INJ 1 MG in SODIUM CHLORID 0.9%... IV SCH (05:00)
--- NOTE | 2018-02-04 05:46 | RADRPT ---
EXAM DATE/TIME: 02/04/2018 04:25 [facility] COMPARISON: CHEST SINGLE AP, February 03, 2018, 2:16. INDICATIONS : Short of breath. MEDICAL HISTORY : None. SURGICAL HISTORY : None. ENCOUNTER: Subsequent ACUITY: 2 days PAIN SCORE: Non-responsive. LOCATION: Bilateral chest FINDINGS: A single view of the chest demonstrates the lungs to be symmetrically aerated without evidence of mas s, infiltrate or effusion. The cardiomediastinal contours are unremarkable. Osseous structures are intact. CONCLUSION: No acute disease. Shelton Dunham MD on February 04, 2018 at 5:43 Board Certified Radiologist. This report was verified electronically.
[2018-02-04] MEDS: METHOCARBAMOL 500 MG TAB PO SCH ×2 (05:50→21:43)
[2018-02-04] MEDS: SODIUM CHLORIDE FLUSH BID IV FLUSH SCH ×2 (09:00→21:44)
--- NOTE | 2018-02-04 09:16 | MH ---
cc: Desmond Guidry MD DATE OF ADMISSION: 02/03/2018 HISTORY OF PRESENT ILLNESS: This is a patient who was brought in as a Trauma-Alert. By report, the patient fell off 3 stories from the sixth floor of a building to the third floor. He was brought in on a backboard, in a C-collar, immobilized. The patient was lethargic, arousable, answering simple questions. He cannot recall the incident. He complains of pain in his arm. He does not give a good history. PHYSICAL EXAMINATION: GENERAL: The patient is lying on a backboard, in C-collar. HEENT: His pupils are equal and reactive. NECK: His trachea is midline. PULMONARY: His respirations clear. CARDIOVASCULAR: Regular. GASTROINTESTINAL: Soft, nondistended. MUSCULOSKELETAL: He has deformity to his bilateral upper extremities. NEUROLOGIC: Lethargic, arousable, moves all extremities. BACK: No step-offs. Abrasion to his left back. RADIOLOGIC IMAGES: CT of the head negative. CT of the cervical spine, no fracture. CT of the chest, left first and second rib fractures. CT of the abdomen and pelvis, fracture of the L3 vertebral body, with possible involvement of the posterior elements. X-ray of the left forearm reveals displaced fracture of the mid shaft of the radius and ulna. X-ray of the right arm reveals dislocation at the wrist. Thoracic CT, no thoracic spine fracture. Lumbar CT, L3 vertebral body fracture. ASSESSMENT AND PLAN: This is a patient status post fall approximately 3 stories, with lumbar spine fracture, radius and ulna fracture on the left, dislocation of the right wrist, rib fractures. The patient is being admitted to [facility]. Neurosurgery, as well as orthopedic and critical care will be consulted. We will monitor his neurological status and provide pain management and hemodynamic support. MD MARYJANE Carr/TACOS , 10:08 PM , 10:45 PM
--- NOTE | 2018-02-04 09:19 | HHI.NSPN ---
(J Carlos Sauer Steve LEONARD) History Chief Complaint: Low back pain (J Carlos SauerRenny LEONARD) Interval History 02/03: Patient states that he was at [facility] with friends which is the last thing he remembers. The next thing he remembers is waking up in the bed in the ISC unit. He does have some pain to the lower back and the neck. He denies any numbness or tingling to the extremities except for the fingertips. Mechanism unknown. 02/04: It is now known that the patient fell from a balcony onto another one. The patient is awake and alert when seen this morning. His family is at the bedside. He complains of low back pain. He denies any pain to the neck. He denies any numbness or tingling to the extremities. He does have pain to both upper extremities secondary to his injuries. He denies any headache, dizziness or nausea. No change is noted in his neuro exam. He is to go to surgery today for the upper extremity injuries. (J Carlos SauerRenny LEONARD) Exam Results 02/02/18 02/02/18 02/03/18 02/03/18 02/04/18 02/04/18 06:00 18:00 06:00 18:00 06:00 18:00 Intake Total 0 ml 120 ml 280 ml Output Total 0 ml 1250 ml 750 ml Balance 0 ml -1130 ml -470 ml Intake Oral 0 ml 120 ml 280 ml Output Urine Total 0 ml 1250 ml 750 ml Vital Signs Date Time Temp Pulse Resp B/P (MAP) Pulse Ox O2 Delivery O2 Flow Rate FiO2 02/04/18 08:29 100 21 02/04/18 06:00 74 02/04/18 04:00 86 02/04/18 04:00 98.6 86 25 173/73 (106) 99 02/04/18 03:12 99 02/04/18 02:00 67 02/04/18 00:00 80 02/04/18 00:00 98.1 80 24 149/67 (94) 99 3/26/18 22:00 83 02/03/18 21:27 100 02/03/18 20:00 72 02/03/18 20:00 98.5 72 21 150/79 (102) 100 02/03/18 19:00 97 Room Air 02/03/18 18:33 28 02/03/18 18:33 28 02/03/18 18:00 83 02/03/18 16:00 80 02/03/18 16:00 98.4 90 25 138/72 (94) 90 02/03/18 14:00 76 02/03/18 12:00 78 02/03/18 12:00 98.1 78 20 143/64 (90) 97 02/03/18 10:00 76 02/03/18 08:00 83 02/03/18 08:00 98.4 83 21 127/60 (82) 95 02/03/18 07:00 96 Room Air 02/03/18 06:00 62 02/03/18 04:00 97.6 78 23 118/57 (77) 96 02/03/18 03:00 97.6 90 18 135/80 (98) 97 02/03/18 03:00 80 02/03/18 03:00 Room Air (J Carlos Sauer) Physical Examination GENERAL: Awake & alert. Affect essentially normal, readily interacts. No apparent distress. HEENT: Normocephalic, atraumatic. PERRLA 3 mm brisk, EOMI. No otorrhea or rhinorrhea. MMM & pink, tongue midline to protrusion. NECK: Midline cervical spine & paraspinals NTTP. Neck supple. No JVD. Trachea midline. MUSCULOSKELETAL: Bilateral forearms in splints. Bilateral arms & lower extremities NTTP. Moves digits of both hands w/o difficulty. Moves BLE w/o any difficulty. NEUROLOGICAL: AAOx3. Speech clear & appropriate. Follows simple commands w/o difficulty. CN II through XII grossly intact. Sensation intact to light touch to all extremities. Unable to asses motor strength of BUE due to injuries but does move digits of both hands without difficulty. Motor strength of BLE is 5/5 to all major flexion & extension muscle groups. (J Carlos Sauer) Lab, Micro, Other Results Recent Impressions Thoracic Spine CT 02/03/18221 Signed Impressions: Service Date/Time: Saturday, February 03, 2018 02:39 - CONCLUSION: 1. Fractures of the left first and second ribs. 2. Minimal fracture of the lower sternum. 3. No compression fracture of thoracic spine. Shelton Dunham MD Pelvis X-Ray 02/03/18221 Signed Impressions: Service Date/Time: Saturday, February 03, 2018 02:16 - CONCLUSION: No acute fracture. Shelton Dunham MD Lumbar Spine CT 02/03/18221 Signed Impressions: Service Date/Time: Saturday, February 03, 2018 02:39 - CONCLUSION: 1. Fracture of L3 vertebral body with mild loss of height. Fracture does extend into the both posterior elements. 2. Fracture of the right L2 transverse process. Shelton Dunham MD Head CT 02/03/18221 Signed Impressions: Service Date/Time: Saturday, February 03, 2018 02:32 - CONCLUSION: No acute intracranial disease. Shelton Dunham MD Chest X-Ray 02/03/18221 Signed Impressions: Service Date/Time: Saturday, February 03, 2018 02:16 - CONCLUSION: No acute disease. Shelton Dunham MD Chest CT 02/03/18221 Signed Impressions: Service Date/Time: Saturday, February 03, 2018 02:39 - CONCLUSION: 1. Left first and second rib fractures. 2. No pneumothorax. Shelton Dunham MD Cervical Spine CT 02/03/18221 Signed Impressions: Service Date/Time: Saturday, February 03, 2018 02:32 - CONCLUSION: 1. No fracture or subluxation. 2. Fracture of the first and second ribs on the left. Shelton Dunham MD Abdomen/Pelvis CT 02/03/18221 Signed Impressions: Service Date/Time: Saturday, February 03, 2018 02:39 - CONCLUSION: 1. Fracture L3 vertebral body with possible involvement of the posterior elements. 2. No abdominal visceral injury. Shelton Dunham MD Wrist X-Ray 02/03/18 Signed Impressions: Service Date/Time: Saturday, February 03, 2018 18:04 - CONCLUSION: 1. Carpal dislocation as above. Amando Fuentes MD Wrist X-Ray 02/03/18 Signed Impressions: Service Date/Time: Saturday, February 03, 2018 09:15 - CONCLUSION: 1. Limited two-view rotated exam. 2. Carpal dislocation. 3. Abnormal widening of the scapholunate distance consistent with scapholunate ligament tear. 4. Nondisplaced fracture through the base of the ulnar styloid. Lucas Tavarez MD Radius/Ulna X-Ray 02/03/18 0000 Signed Impressions: Service Date/Time: Saturday, February 03, 2018 02:16 - CONCLUSION: No acute fracture of the forearm. Appears to be dislocation at the wrist. Dedicated views of the wrist is recommended. Shelton Dunham MD Radius/Ulna X-Ray 02/03/18 0000 Signed Impressions: Service Date/Time: Saturday, February 03, 2018 02:16 - CONCLUSION: 1. Displaced fractures of midshaft radius and ulna. 2. There also appears to be fractures of triquetrum carpal bone. Shelton Dunham MD Laboratory Tests Test 02/03/18 02:20 02/03/18 03:00 02/04/18 03:01 White Blood Count 17.0 TH/MM3 10.7 TH/MM3 Red Blood Count 4.81 MIL/MM3 4.29 MIL/MM3 Hemoglobin 15.0 GM/DL 13.5 GM/DL Bedside Hemoglobin 14.6 G/DL Hematocrit 43.6 % 38.4 % Bedside Hematocrit 43.0 % Mean Corpuscular Volume 90.6 FL 89.6 FL Mean Corpuscular Hemoglobin 31.3 PG 31.5 PG Mean Corpuscular Hemoglobin Concent 34.5 % 35.2 % Red Cell Distribution Width 13.6 % 13.7 % Platelet Count 291 TH/MM3 178 TH/MM3 Mean Platelet Volume 9.2 FL 9.4 FL CBC Comment AUTO DIFF DIFF FINAL Differential Total Cells Counted 100 Neutrophils % (Manual) 38 % Lymphocytes % 54 % Monocytes % 6 % Eosinophils % 1 % Basophils % 1 % Neutrophils # (Manual) 6.5 TH/MM3 Differential Comment FINAL DIFF MANUAL Platelet Estimate NORMAL Platelet Morphology Comment NORMAL Red Cell Morphology Comment NORMAL Prothrombin Time 11.2 SEC Prothromb Time International Ratio 1.1 RATIO Activated Partial Thromboplast Time 25.7 SEC Bedside Sodium 142 MMOL/L Bedside Potassium 3.6 MMOL/L Bedside Chloride 103 MMOL/L Bedside Blood Urea Nitrogen 14 MG/DL Bedside Creatinine 1.6 MG/DL Bedside Glucose 152 MG/DL Nasal Screen MRSA (PCR) MRSA NOT DETECTED Neutrophils (%) (Auto) 69.6 % Lymphocytes (%) (Auto) 18.3 % Monocytes (%) (Auto) 11.5 % Eosinophils (%) (Auto) 0.4 % Basophils (%) (Auto) 0.2 % Neutrophils # (Auto) 7.5 TH/MM3 Lymphocytes # (Auto) 2.0 TH/MM3 Monocytes # (Auto) 1.2 TH/MM3 Eosinophils # (Auto) 0.0 TH/MM3 Basophils # (Auto) 0.0 TH/MM3 Blood Urea Nitrogen 13 MG/DL Creatinine 0.86 MG/DL Random Glucose 107 MG/DL Total Protein 7.3 GM/DL Albumin 3.8 GM/DL Calcium Level 8.4 MG/DL Alkaline Phosphatase 91 U/L Aspartate Amino Transf (AST/SGOT) 104 U/L Alanine Aminotransferase (ALT/SGPT) 67 U/L Total Bilirubin 1.4 MG/DL Sodium Level 136 MEQ/L Potassium Level 3.8 MEQ/L Chloride Level 102 MEQ/L Carbon Dioxide Level 24.2 MEQ/L Anion Gap 10 MEQ/L Estimat Glomerular Filtration Rate 113 ML/MIN (J Carlos Sauer) Medical Decision Making Impression and Plan Impression: 1.) Fall [facility] 2.) Concussion w/loss of consciousness, unknown period of time 3.) L3 vertebral body fracture 4.) Right L2 transverse process fracture 5.) Lower sternum fracture 6.) Left 1st & 2nd rib fractures 7.) Right carpus dislocation 8.) Left radius fracture 9.) Left ulna fracture 10.) Left triquetrum carpal bone fracture 11.) Thoracolumbar junction pain The patient continues to do well. He does have lower back pain. There are no sensorimotor deficits noted. Reviewed labs for today. Interval resolution of leukocytosis. INR 1.1 & aPTT 25.7. Creatinine WNL. Elevation of transaminases. CT brain unremarkable for any acute findings. CT cervical spine unremarkable for any acute cervical spine findings , noted are left-sided 1st & 2nd rib fractures. CT thoracic spine unremarkable for any acute thoracic spine findings , noted are a lower sternum and left-sided 1st & 2nd rib fractures. CT lumbar spine demonstrates an L3 vertebral body fracture w/minimal loss of height as well as a right L2 transverse process fracture. Plan: Primary & critical care management per Trauma. Neuro checks. Stat CT brain for any decline in neuro/mental status. NPO except for meds. Bedrest. Logroll patient. TLSO brace. Keep patient flat, do not turn [id number]. Continue Hyannis J cervical collar. Hold pharmacologic DVT prophylaxis. Mechanical DVT prophylaxis. Stress ulcer prophylaxis. Continue IVF per Trauma. Pain medication per Trauma. MRI lumbar spine pending. ADDENDUM at 1131: MRI lumbar spine completed. Demonstrates known L3 compression fracture. Broad-based posterior disc herniation w/moderate AP and lateral recess stenosis. Probable L2 contusion or nondisplaced fracture w/ marrow edema. Abnormal T2 signal to the interspinous ligament between L2 and L3 which could be injury. Fracture through posterior elements of L3 at the superior spinous process. Dr Tyson notified. BET (J Carlos Sauer) Attending Statement The exam, history, and the medical decision-making described in the above note were completed with the assistance of the mid-level provider. I reviewed and agree with the findings presented. I attest that I had a [id number] encounter with the patient on the same day, and personally performed and documented my assessment and findings in the medical record. On examination of 02/04/18, patient remains awake and alert. Sensorimotor function intact lower extremities Still with moderate low back pain MRI lumbar spine images reviewed with the patient's family. The study reveals significant disruption of the T2-T3 interspinous ligament, possibly some facet disruption with significant edema and probable hematoma in the lumbar paraspinous musculature as well as possible component of epidural hematoma. I advised him that due to the significant distraction type injury of the posterior elements, that surgical intervention is recommended for T2-3 fusion, pedicle screw stabilization. Procedure wrist possible complications fully reviewed with the family and they understand and wish to proceed with surgery tentatively scheduled for 02/06/18. (Daniel Tyson MD) J Carlos Sauer Feb 04, 2018 09:19 Daniel Tsyon MD Feb 06, 2018 18:42
[2018-02-04] MEDS: LIDOCAINE HCL 5% PATCH T-DERMAL SCH (09:25)
[2018-02-04] MEDS: ONDANSETRON HCL 4 MG/2 ML VIAL IV PUSH PRN (09:26)
[2018-02-04] MEDS: DOCUSATE SODIUM 100 MG CAP PO SCH ×2 (09:26→21:44)
[2018-02-04] MEDS: PANTOPRAZOLE SODIUM 40 MG VIAL IVP SCH (09:26)
--- NOTE | 2018-02-04 10:36 | RADRPT ---
EXAM DATE/TIME: 02/04/2018 09:54 [facility] COMPARISON: No previous studies available for comparison. INDICATIONS : Trauma, fall. MEDICAL HISTORY : Nonresponsive SURGICAL HISTORY : Nonresponsive ENCOUNTER: Initial ACUITY: 2 days PAIN SCORE: Nonresponsive LOCATION: Lumbar TECHNIQUE: Multiplanar multisequence MRI of the lumbar spine was performed without contrast. FINDINGS: There is a mild compression fracture through the superior endplate of L3 without significant retropul tucker. There is a broad-based disc protrusion at L2-3 which is likely traumatic and related to an senthil lar tear. Disc protrusion results in moderate AP canal stenosis and some flattening of cauda equina. There is also moderate lateral recess encroachment and mild foraminal encroachment bilaterally. There is increased T2 signal at the interspinous ligament between L2 and L3 which could represent a ligame ntous injury. There is also fracture extending through the posterior of the L3. There is no significa nt spondylolisthesis. There is also some subtle edema within the L2 vertebral body which could represent a bone contusion o r nondisplaced fracture. L1, L4 and L5 appear intact. CONCLUSION: 1. At L3 there is a mild compression fracture through the superior endplate with a broad-based modera te-sized posterior traumatic disc herniation resulting in moderate AP canal and lateral recess stenos is. 2. Probable contusion or nondisplaced fracture L2 with marrow edema present. 3. Abnormal T2 signal in the interspinous ligament between L2 and L3 which could represent a ligament ous injury. There is also a fracture extending through the posterior elements of L3 at the superior a spect of the spinous process. 4. The conus medullaris appears intact. Amando Fuentes MD on February 04, 2018 at 10:24 Board Certified Radiologist. This report was verified electronically.
[2018-02-04] MEDS: SODIUM CHLORIDE 0.9% FLUSH 10 ML FLUSH IV FLUSH PRN (11:29)
[2018-02-04] MEDS ORDERED: ONDANSETRON HCL 4 MG/2 ML VIAL IV ONE (12:00)
[2018-02-04] MEDS ORDERED: LACTATED RINGER'S 1000 ML INJ 1,000 ML IV ONE (12:00)
[2018-02-04] MEDS ORDERED: PROPOFOL 200 MG/20 ML AMP IV ONE (12:00)
[2018-02-04] MEDS ORDERED: DEXAMETHASONE SOD PHOS 4 MG/ML VIAL IV ONE (12:00)
[2018-02-04] MEDS ORDERED: LIDOCAINE HCL 1% PF 5 ML SYRINGE OTHER ONE (12:00)
--- NOTE | 2018-02-04 13:26 | MB ---
cc: Efrem Abdi MD DATE: 02/04/2018 REASON FOR CONSULTATION: 1. Right wrist pain. 2. Left radius and ulna fractures CONSULTING PHYSICIAN: Dr. Desmond Guidry HISTORY: Gume is an approximately 22-year-old male who is here for Spring Break. He reportedly fell from the sixth floor down to a third floor balcony. He was in the emergency room as a Trauma Alert. He was initially lethargic. He does not clearly recall the fall. He complained of bilateral arm pain. X-rays revealed a left radius and ulnar fracture. He was found to have a right wrist perilunate dislocation. He is currently awake in the Intensive Care Unit. PAST MEDICAL HISTORY: ALLERGIES: NONE. ILLNESSES: None. MEDICATIONS: None prior to hospitalization. SOCIAL HISTORY: The patient does drink alcohol. He was reportedly intoxicated upon presentation. He denies drug use. FAMILY HISTORY: Noncontributory. He denies familial medical problems. REVIEW OF SYSTEMS: The patient denies headache, visual changes, neck pain, abdominal pain, nausea, vomiting, recent weight loss, fever, chills, numbness or tingling of extremities or recent weight loss. He complains of bilateral arm pain. LABORATORY DATA: The patient has a white blood cell count of 10.7, hematocrit of 38.4, and platelet count of 178. INR is 1.1. BUN is 13, creatinine 0.86. PHYSICAL EXAMINATION: GENERAL: The patient is a 22-year-old male who is awake and alert. He is in no acute distress VITAL SIGNS: Temperature 98.6, pulse 86, respirations 25, blood pressure 173/77, O2 saturations 99% on room air. HEAD: The patient is normocephalic. Pupils are equal. NECK: Soft, nontender. The trachea is in the midline. ABDOMEN: Soft, nontender, nondistended. EXTREMITIES: Examination of right arm reveals no tenderness around his shoulder or elbow. He has swelling around his wrist. He has pain with any wrist motion. He has good capillary refill in his fingers. Radial pulse is palpable. Examination of the left arm reveals no pain with shoulder or elbow motion. He is tender to palpation around his forearm. Forearm compartments are soft. Skin is intact. Radial pulse is palpable. Sensation is intact in all fingers. Examination of lower extremities reveals no significant pain with hip, knee or ankle motion. Skin is intact. Dorsalis pedis pulses are palpable. Skin is intact. X-RAYS: X-rays of both forearms were reviewed. X-rays reveal displaced left radius and ulna shaft fractures. X-rays of the right wrist were reviewed. X-rays reveal a right wrist perilunate dislocation. IMPRESSION: 1. Three-story fall from height. 2. Left radius and ulna fractures. 3. Right wrist perilunate dislocation. PLAN: Treatment options were discussed with the patient. At this point I would recommend open reduction and internal fixation of left radius and ulna fractures. He will need a consultation with hand surgeon regarding his right wrist dislocation. Risks of surgery include bleeding, infection, injuries to arteries, nerves and blood vessels, nonunion, malunion, painful hardware, tendon rupture, weakness and numbness of the hand, compartment syndrome as well as medical complications including blood clot, stroke, heart attack and . All questions were answered. I will plan on surgery today. A mid-level provider in my office, nurse practitioner or PA, may see this patient on a follow-up basis and continue to implement the objective of this plan including: Starting or adjusting medications, injections of muscle, tendon, bursa or joints, cast application, orthotic or brace application, physical therapy, further radiographic studies including x-ray, MRI, CT, ultrasounds or bone scan, vascular studies, neurologic studies, or other specialist consultations, and proceeding with surgical management as appropriate. MD LUIS ALBERTO Huffman/MAXIME , 01:06 PM , 01:25 PM
--- NOTE | 2018-02-04 13:38 | HHI.CCPN ---
Subjective Brief History MOAPA: This is a 22-year-old male who was out with friend last night at a local club. The patient does not remember anything past that. We are told he either jumped or fell from his sixth story balcony, and landed on the third floor. INJURIES: Sternum fx LEFT rib fx (1,2) L2 transverse process fx L3 vertebral body fx LEFT radius/ulna fx LEFT triquetrum carpal bone RIGHT carpus/wrist dislocation 24 Hour Review/Hospital Course 02/03/2018 PTD: 0 Patient lying in bed. No distress noted. Bilateral arms in splint and wrapped with Fabio bandage. Patient is able to move all extremities well and to command. He does complain of tingling in his right hand. Additionally, patient complains of pain in his back. 3 Patient remained stable He is neurologically intact Undergoing MRI lumbar spine Plan will be decided by neurosurgery according to this Objective Vital Signs Date Time Temp Pulse Resp B/P (MAP) Pulse Ox O2 Delivery O2 Flow Rate FiO2 02/04/18 11:34 12 02/04/18 08:29 100 21 02/04/18 06:00 74 02/04/18 04:00 98.6 173/73 (106) 02/03/18 19:00 Room Air Intake and Output 02/04/18 02/04/18 02/05/18 08:00 16:00 00:00 Intake Total 280 ml Output Total 750 ml Balance -470 ml Result Diagram: 02/04/18 0301 02/04/18 0301 Imaging Last 24 hours Impressions Chest X-Ray 02/04/18 0600 Signed Impressions: Service Date/Time: Sunday, February 04, 2018 04:25 - CONCLUSION: No acute disease. Shelton Dunham MD Exam [facility] G scores 15 Hemodynamic/Cardiac Stable Pulmonary/Respiratory Clear bilateral Abdomen/GI Nutrition Soft benign Urinary Catheter Assessment Urinary Catheter: No Date of Insertion: Feb 03, 2018 Vascular Central Line Catheter Vascular Central Line Catheter: No Assessment and Plan Assessment: (1) Sternum fx ICD Code: S22.20XA - Unspecified fracture of sternum, initial encounter for closed fracture Status: Acute (2) Left rib fracture ICD Code: S22.32XA - Fracture of one rib, left side, initial encounter for closed fracture Status: Acute (3) Fracture of L2 vertebra ICD Code: S32.029A - Unspecified fracture of second lumbar vertebra, initial encounter for closed fracture (4) L3 vertebral fracture ICD Code: S32.039A - Unspecified fracture of third lumbar vertebra, initial encounter for closed fracture Status: Acute (5) Closed fracture of head of left ulna ICD Code: S52.602A - Unspecified fracture of lower end of left ulna, initial encounter for closed fracture Status: Acute (6) Dislocation of right wrist ICD Code: S63.004A - Unspecified dislocation of right wrist and hand, initial encounter Status: Acute Plan MOAPA: This is a 22-year-old male who was out at a club. Returned home. Fell/jumped from a 6 story balcony and landed on the third floor. INJURIES: Sternum fx LEFT rib fx (1,2) L2 transverse process fx L3 vertebral body fx LEFT radius/ulna fx LEFT triquetrum carpal bone RIGHT carpus/wrist dislocation Procedures: Consults: Neurosurgery. Orthopedics. Case management. Diet: NPO Pulmonary: Encourage good pulmonary toileting. IS and acapella at bedside and pt encouraged to use. Rationale for use explained to patient, and verbalized understanding. Duo nebs. PAIN Management: [place] 5-10 mg q 4h. Morphine 2 mg q 3h. Robaxin 500 mg q 8h. Lidocaine patch Activity: BR. PT and OT ordered. Log roll only GI prophylaxis: Protonix IV Bowel regimen: Colace and MOM. LBM: 0 DVT prophylaxis: Mechanical VTE with SCDs. Chemical management TBD. DC Planning: Case management consulted for assistance with final discharge disposition. Emotional support provided to patient and family at bedside and plan of care discussed. Discussed with SPECIAL EDUCATION INSTRUCTOR at bedside during trauma rounds. Discussed pt condition and plan of care with collaborating trauma surgeon. Patient is currently managed in the trauma ICU.. The trauma team will round each day, and evaluate plan of care on a daily basis. Assessment and Plan 02/04; continue pain control Discuss chemical DVT prophylaxis with neurosurgeon Follow-up MRI results Transfer floor Continue spinal precautions Problem Qualifiers (1) Sternum fx: Qualified Codes: S22.20XA - Unspecified fracture of sternum, initial encounter for closed fracture (2) Left rib fracture: Qualified Codes: S22.42XA - Multiple fractures of ribs, left side, initial encounter for closed fracture (3) Fracture of L2 vertebra: Qualified Codes: S32.029A - Unspecified fracture of second lumbar vertebra, initial encounter for closed fracture (4) L3 vertebral fracture: Qualified Codes: S32.039A - Unspecified fracture of third lumbar vertebra, initial encounter for closed fracture (5) Closed fracture of head of left ulna: Qualified Codes: S52.602A - Unspecified fracture of lower end of left ulna, initial encounter for closed fracture (6) Dislocation of right wrist: Qualified Codes: S63.004A - Unspecified dislocation of right wrist and hand, initial encounter Ellie Finch MD Feb 04, 2018 13:37
[2018-02-04] MEDS ORDERED: LIDOCAINE HCL 2% 50 ML VIAL ONE (13:51)
[2018-02-04] MEDS ORDERED: BUPIVACAINE HCL PF 0.5% 30 ML VIAL ONE (13:51)
[2018-02-04] MEDS ORDERED: VANCOMYCIN HCL 1000 MG VIAL ONE (13:51)
[2018-02-04] MEDS ORDERED: GENTAMICIN SULFATE 80 MG/2 ML VIAL ONE (13:52)
[2018-02-04] MEDS ORDERED: SODIUM CHLOR 0.9% 250 ML INJ 250 ML ONE (13:52)
--- NOTE | 2018-02-04 13:59 | RADRPT ---
EXAM DATE/TIME: 02/04/2018 12:58 [facility] COMPARISON: No previous studies available for comparison. INDICATIONS : Pain. MEDICAL HISTORY : None. SURGICAL HISTORY : None. ENCOUNTER: Subsequent ACUITY: 3 days PAIN SCORE: 6/10 LOCATION: Right Ankle. FINDINGS: Three view exam was performed of the right ankle. The bony structures are in normal alignment. No e vidence of fracture, dislocation. Soft tissue swelling at right ankle. The ankle mortise is intact. No radiopaque foreign bodies are seen. Bony mineralization is normal. CONCLUSION: 1. No acute bony abnormality. Soft tissue swelling of the right ankle. Amando Fuentes MD on February 04, 2018 at 13:55 Board Certified Radiologist. This report was verified electronically.
[2018-02-04] MEDS ORDERED: NEOMYCIN/POLYMYXIN 1 ML G.U. IRRIGANT ONE (14:00)
--- NOTE | 2018-02-04 14:57 | MB ---
cc: Baltazar Vo MD DATE: 02/04/2018 HISTORY OF PRESENT ILLNESS: The patient is a 22-year-old right hand dominant male who fell last night 3 stories from the sixth floor to the third floor of a building. He was brought in as a trauma alert and reportedly did not give a good history, but on my interview, he recalls falling. He has a lumbar spine fracture, a left radius and ulna fracture, and a right perilunate wrist dislocation as well as rib fractures. 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 He does have some numbness in the tips of his fingers on the right hand. PAST MEDICAL HISTORY: Denies. MEDICATIONS: Denied. PAST SURGICAL HISTORY: Left knee surgeries and an appendectomy. ALLERGIES: NO KNOWN DRUG ALLERGIES. FAMILY HISTORY: Noncontributory. SOCIAL HISTORY: He does not smoke. He does drink alcohol. DIAGNOSTIC STUDIES: Multiple x-rays were performed and reviewed and the right wrist has a carpal dislocation with abnormal widening of scapholunate distant consistent with this injury. There is a nondisplaced fracture through the base of the ulnar styloid. The forearm has no evidence of acute fracture. X-rays of the left forearm revealed displaced fractures of midshaft radius and ulna and appears to be fractures of the triquetrum. Thoracic spine CT, fractures of the first and second ribs, minimal fracture of the lower sternum, no compression fracture of the thoracic spine. Pelvis x-ray reveals no acute fracture. Lumbar spine CT reveals fracture of L3 vertebral body with mild loss of height. The fracture does extend into both posterior elements. Fracture of the right L2 transverse process. Head CT reveals no acute intracranial disease. Chest CT reveals left first and second rib fractures and no pneumothorax. Chest x-ray, no acute disease. Cervical spine CT, no fracture or subluxation. Fracture of the first and second ribs on the left. Abdomen and pelvis CT, fracture of the L3 vertebral body with possible involvement of the posterior elements. No abdominal visceral injury. Lumbar spine MRI was completed this morning. Right ankle x-ray, no acute bony abnormality. Soft tissue swelling of the right ankle. Chest x-ray repeat with no acute disease. LABORATORY STUDIES: Hemoglobin was 14.6 g/dL; platelet count was last 178,000. His coags are normal. BUN and creatinine 13 and 0.86. REVIEW OF SYSTEMS: As noted in the history of present illness. Also does not complain of any double or blurry vision. He does not have any coughing, wheezing or shortness of breath. He is not complaining of any chest pain or palpitations. He is not complaining of nausea, vomiting or abdominal pain. He is not complaining of any burning, frequency or urgency with urination. He is not complaining of any spine, neck or back pain. He is not complaining of any anxiety, depression, or suicidal ideations. He is complaining of numbness and tingling in the fingers of his right hand. PHYSICAL EXAMINATION: GENERAL: He is a well-developed, well-nourished, in no apparent distress, lying comfortably in his hospital bed. He is awake, alert and oriented x 3. RESPIRATORY: His respiratory effort is normal. SKIN: All normal in its appearance and temperature. MUSCULOSKELETAL: His bilateral upper extremities are in sugar-tong splints. He is able to move the fingers of both hands. Examination of the right hand reveals that sensation is slightly decreased in the median nerve distribution. Capillary refill less than 2 seconds. There is mild edema in the fingers. HEENT: Normocephalic, atraumatic. ASSESSMENT: 1. Right wrist perilunate dislocation. 2. Right wrist ulnar styloid fracture, nondisplaced. PLAN: To go as urgently to the operating room as we can for open reduction of the right perilunate dislocation. I discussed this with the patient's mom and the patient himself and they understand and request that we proceed. They know this is a significant injury and he may have numbness in his fingers for quite some time, possibly permanently. MD YESSICA Sellers/YADIRA , 02:17 PM , 02:56 PM NAFISA
[2018-02-04] MEDS ORDERED: ceFAZolin INJ 1,000 MG VIAL ONE (15:00)
--- NOTE | 2018-02-04 15:25 | PD.ORT.PN ---
Subjective Subjective Remarks s/p left BBFA fx s/p right perilunate dislocation doing well. pain controlled Objective Vitals Vital Signs Date Time Temp Pulse Resp B/P (MAP) Pulse Ox O2 Delivery O2 Flow Rate FiO2 02/04/18 13:55 97.9 72 14 154/76 (102) 95 02/04/18 11:34 12 02/04/18 10:26 14 02/04/18 08:29 100 21 02/04/18 06:00 74 02/04/18 04:00 86 02/04/18 04:00 98.6 86 25 173/73 (106) 99 02/04/18 03:12 99 02/04/18 02:00 67 02/04/18 00:00 80 02/04/18 00:00 98.1 80 24 149/67 (94) 99 02/03/18 22:00 83 02/03/18 21:27 100 02/03/18 20:00 72 02/03/18 20:00 98.5 72 21 150/79 (102) 100 02/03/18 19:00 97 Room Air 02/03/18 18:00 83 02/03/18 16:00 80 02/03/18 16:00 98.4 90 25 138/72 (94) 90 I/O 02/03/18 02/03/18 02/03/18 02/04/18 02/04/18 02/04/18 07:00 15:00 23:00 07:00 15:00 23:00 Intake Total 0 ml 120 ml 280 ml Output Total 0 ml 1250 ml 750 ml Balance 0 ml -1130 ml -470 ml Intake Oral 0 ml 120 ml 280 ml Output Urine Total 0 ml 1250 ml 750 ml Result Diagram: 02/04/18 0301 02/04/18 0301 Imaging Last 24 hours Impressions Chest X-Ray 02/04/18 0600 Signed Impressions: Service Date/Time: Sunday, February 04, 2018 04:25 - CONCLUSION: No acute disease. Shelton Dunham MD Lumbar Spine MRI 02/04/18 0000 Signed Impressions: Service Date/Time: Sunday, February 04, 2018 09:54 - CONCLUSION: 1. At L3 there is a mild compression fracture through the superior endplate with a broad- based moderate-sized posterior traumatic disc herniation resulting in moderate AP canal and lateral recess stenosis. 2. Probable contusion or nondisplaced fracture L2 with marrow edema present. 3. Abnormal T2 signal in the interspinous ligament between L2 and L3 which could represent a ligamentous injury. There is also a fracture extending through the posterior elements of L3 at the superior aspect of the spinous process. 4. The conus medullaris appears intact. Amando Fuentes MD Objective Remarks LUE: +sugar tong splint. intact. NVI RUE: +sugar tong splint. intact. NVI Assessment & Plan Assessment and Plan 1) Left Radius/Ulna Shaft Fxs 2) Right Perilunate Dislocation of wrist -surgery today wt Abdi for left forearm -consult hand surgery for eval and mgmt of perilunate dislocation Tam Allred/Lamp Shade Sewer PA Feb 04, 2018 15:25
[2018-02-04] MEDS ORDERED: ACETAMINOPHEN 1000 MG/100 ML 100 ML IV ONE (15:40)
--- NOTE | 2018-02-04 16:19 | OTSOAPIP ---
TIME SESSION COMPLETED: PM TREATMENT TIME: 0 MINS. CHART REVIEWED. ATTEMPTED TO SEE FOR OT ASSESSMENT, HOWEVER OFF FLOOR FOR PROCEDURE. WILL FOLLOW NEXT DAY Therapist: CARYN TOWNSEND OT/L Signature on file
--- NOTE | 2018-02-04 16:35 | PD.OP ---
cc: Efrem Akers MD Operative Report Date of Surgery: Feb 04, 2018 Preoperative Diagnosis: Displaced left radius and ulna fractures Postoperative Diagnosis: Procedure: Open reduction internal fixation left radial shaft and left ulna shaft fractures Anesthesia: Gen. Surgeon: Efrem Akers Registered Nursing Professor(s): Luis Parish PA-C The surgical procedure was assisted by my physician pizza hut assistant. My P.A. presence was necessary throughout this case for the manipulation and positioning of the surgical extremity. My P.A. was assisting me throughout the duration of this procedure. The skill set of a physician pizza hut assistant was medically necessary to complete this procedure. During the surgical case the biological science technician fish was working at the back table and the physician pizza hut assistant was directly assisting me. Operation and Findings: Implants used: ITS Patient was seen and examined preoperatively. Patient was found to have displaced left radius and ulna shaft fractures. Informed consent was obtained and operative site was marked. Patient was brought to operating room and given IV sedation and general anesthesia. Timeout procedure was performed. Bilateral upper extremities prepped and draped with alcohol followed by Hibiclens and draped in usual sterile fashion. IV antibiotics were administered prior to incision. Dr. Vo of hand surgery was working on the right wrist dislocation and I was working on the left forearm radius and ulna fractures. Procedure began with a 5 inch incision over the subcutaneous border of the ulna. Fascia was elevated off of the bone. Fracture site was visualized. Fracture tenaculums were used to reduce fracture. Fracture keyed into anatomic alignment. A ITS plate was placed across the fracture. Plate was provisionally held to bone with K wires. 3.5 cortical screws were used to compress plate to bone. Multiple screws were placed in each side of fracture. K wires were removed. Fluoroscopy confirmed excellent alignment of fracture with well-placed hardware. Incision was now closed with #1 Vicryl, 3-0 Vicryl, and radha. Next attention was turned to the radius. A 5 inch incision was made over the volar aspect of the forearm. A standard volar approach was utilized. The interval between the radial artery and superficial radial nerve was identified. Neurovascular structures were protected. Soft tissue was elevated off the bone. Fracture site was visualized. Fracture fragments were carefully reduced. Each fracture fragment keyed in anatomic alignment. K wires were used to hold provisional fixation. A ITS plate was contoured to fit the radius. Plate was provisionally held with K wires. 3.5 cortical screws were used to compress plate to bone. Multiple screws were placed in each side of fracture. K wires were removed. Final fluoroscopy revealed excellent of fracture with well-placed hardware. Sterile dressings were applied with Xeroform 4 x 4 soft roll and Fabio wrap. Patient was awakened and transferred to recovery room in stable condition. Forearm compartments were soft and compressible. Efrem Akers MD Feb 04, 2018 16:35
[2018-02-04] MEDS ORDERED: DO NOT ADM ANY ANTICOAGULANT DRUGS PRN (17:11)
[2018-02-04] MEDS ORDERED: MIDAZOLAM HCL 2 MG/2 ML VIAL ONE (17:18)
[2018-02-04] MEDS ORDERED: *MEPERIDINE 25 MG INJ VIAL PERIprocedural Use ONLY ONE (17:27)
--- NOTE | 2018-02-04 17:28 | MP ---
cc: Baltazar Vo MD DATE OF OPERATION: 02/04/2018 PREOPERATIVE DIAGNOSES: 1. Right perilunate wrist dislocation. 2. Right acute carpal tunnel syndrome. PROCEDURES PERFORMED: 1. Open reduction, internal fixation with capsular repair, right perilunate wrist dislocation. 2. Right open carpal tunnel release and median neurolysis. 3. Use of image intensifier. SURGEON: Baltazar Vo MD DESCRIPTION OF PROCEDURE: The patient was brought to the operating room, placed supine on the operating table. After the correct site and side of surgery were verified by members of each team in the room multiple times including the patient and myself, after adequate preoperative markings and preoperative written consent were verified by everyone, after adequate preoperative timeout was performed to everyone's satisfaction, and after adequate general anesthesia had been achieved, the right upper extremity was prepped and draped in traditional sterile surgical fashion. A mini C-arm was used to verify the site of the intended procedure and 50/50 mixture to 2% plain lidocaine and 0.5% plain Marcaine was infiltrated in the skin and subcutaneous tissue in the area of the planned incision. The limb was exsanguinated with an Fabio wrap and a highly placed well-padded tourniquet was inflated to 200 mmHg for a total of 60 minutes. A longitudinally oriented incision angled at the flexion crease of the wrist was made and carried down through skin and subcutaneous tissue overlying the carpal tunnel on the volar aspect of the wrist. Blunt dissection was then performed. Bipolar electrocautery was used as needed. The median nerve was immediately identified and found to be under tension. It was not terribly ecchymotic and otherwise appeared in satisfactory condition. The flexor tendons and the nerve were all then protected and gently retracted radially, and the dislocated lunate was immediately visualized. Thorough irrigation with saline was performed and suctioned free, and an easy reduction was achieved. Reduction was then held manually and was verified under mini C-arm guidance. A longitudinal incision 1 cm in length was made over the snuffbox and 2 separate 0.045 cm K-wires were then advanced through the scaphoid into the lunate at different angles to prevent rotation of the mid carpal row. Two additional K-wires were advanced through the scaphoid into the capitate. These were all tailored to length and cut deep and bent, so as not to irritate the skin or dorsal sensory branch of the radial nerve. Flexion and extension of the wrist were then gently performed passively and was found to be unrestricted. The scapholunate angle had been secured at 60 degrees. The volar capsule was then repaired using running and interrupted 2-0 Ethibond sutures. Thorough irrigation was performed. Again, there were no other anatomic abnormalities. Final x-rays were obtained. Skin edges were reapproximated using running and interrupted 4-0 nylon suture. The hand and arm were thoroughly cleansed and dried. Additional local anesthetic was injected deep to provide for postoperative pain control. Betadine, Adaptic dressings were applied on top of the wounds after they were thoroughly cleansed and dried, and a very well-padded, well-molded, long arm sugar-tong splint leaving all the fingers free was made in the usual fashion. The patient was awakened from anesthesia. I left Dr. Abdi in charge of the operative theater. Of note, the axillary tourniquet was released after 60 total minutes, and the hand and all the fingers became immediately warm and had a brisk capillary refill of less than 2 seconds. MD YESSICA Sellers/MAXIME , 05:02 PM , 05:27 PM
[2018-02-04] MEDS ORDERED: *morphine SULFATE 8 MG/ML PERIprocedure ONLY ONE ×2 (17:37→17:45)
[2018-02-04] MEDS ORDERED: LABETALOL HCL 100 MG/20 ML VIAL ONE (17:48)
[2018-02-04] MEDS ORDERED: HYDROmorphone HCL PF 2 MG/ML VIAL ONE (18:09)
--- NOTE | 2018-02-04 19:20 | RADRPT ---
EXAM DATE/TIME: 02/04/2018 15:52 [facility] COMPARISON: FOREARM LEFT (2VWS), February 03, 2018, 2:16. INDICATIONS : ORIF of the left forearm. MEDICAL HISTORY : Non-responsive SURGICAL HISTORY : Non-responsive ENCOUNTER: Subsequent ACUITY: 2 days PAIN SCORE: Non-responsive. LOCATION: Left upper extremity FINDINGS: 8 images have been submitted from the OR. Surgical plates are seen in the mid radial and ulnar region successfully reducing the previously seen fractures. CONCLUSION: Successful ORIF. David Soliman MD on February 04, 2018 at 19:18 Board Certified Radiologist. This report was verified electronically.
[2018-02-04] MEDS: REMOVE OLD LIDOCAINE PATCH T-DERMAL SCH (21:00)
[2018-02-04] MEDS: ACETAMINOPHEN/HYDROcodone 325 MG/10 MG TAB PO PRN (23:37)
[2018-02-05] VITALS (14 sets, daily range): BP systolic 141–155; BP diastolic 67–79; PULSE 67–92; RESP 14–29; TEMP 97.7–98.7; O2SAT 93–98
[2018-02-05] MEDS: RESP: ALBUTEROL 2.5 MG/IPRATROPIUM 0.5 MG NEB (SCH) NEB ×4 (04:00→20:44)
[2018-02-05] MEDS: SODIUM CHLOR 0.9% 1000 ML INJ 1,000 ML IV SCH (04:22)
--- NOTE | 2018-02-05 06:00 | RADRPT ---
EXAM DATE/TIME: 02/05/2018 05:04 [place] COMPARISON: No previous studies available for comparison. INDICATIONS : Shortness of breath. MEDICAL HISTORY : None. SURGICAL HISTORY : None. ENCOUNTER: Subsequent ACUITY: 3 days PAIN SCORE: 5/10 LOCATION: Bilateral chest FINDINGS: A single view of the chest demonstrates the lungs to be symmetrically aerated without evidence of mas s, infiltrate or effusion. The cardiomediastinal contours are unremarkable. Osseous structures are intact. CONCLUSION: No acute disease. Shelton Dunham MD on February 05, 2018 at 5:58 Board Certified Radiologist. This report was verified electronically.
[2018-02-05] MEDS: MULTIVITAMIN INJ 10 ML, THIAMINE INJ 100 MG, FOLIC ACID INJ 1 MG in SODIUM CHLORID 0.9%... IV SCH (06:39)
[2018-02-05] MEDS: METHOCARBAMOL 500 MG TAB PO SCH ×3 (06:39→21:23)
[2018-02-05] MEDS: ACETAMINOPHEN/HYDROcodone 325 MG/10 MG TAB PO PRN ×4 (06:40→21:22)
--- NOTE | 2018-02-05 07:29 | PD.ORT.PN ---
Subjective Subjective Remarks POd 1 s/p ORIF left BBFA doing well. pain controlled. states sore but controlled Objective Vitals Vital Signs Date Time Temp Pulse Resp B/P (MAP) Pulse Ox O2 Delivery O2 Flow Rate FiO2 02/05/18 06:00 67 02/05/18 04:00 67 02/05/18 04:00 97.7 76 29 141/70 (93) 93 02/05/18 02:00 71 02/05/18 00:37 13 02/05/18 00:00 98.1 70 14 145/67 (93) 98 02/05/18 00:00 78 02/04/18 22:00 78 02/04/18 21:31 98 02/04/18 20:30 83 16 173/71 (105) 95 Room Air 02/04/18 20:15 80 16 147/65 (92) 93 Room Air 02/04/18 20:00 70 16 176/73 (107) 93 Room Air 02/04/18 20:00 98.7 68 12 149/68 (95) 94 02/04/18 20:00 75 02/04/18 19:45 80 16 173/76 (108) 94 Nasal Cannula 2 02/04/18 19:30 77 16 170/81 (110) 96 Nasal Cannula 2 02/04/18 19:15 78 16 146/72 (96) 96 Nasal Cannula 2 02/04/18 19:00 70 16 159/72 (101) 96 Nasal Cannula 2 02/04/18 18:45 70 16 176/85 (115) 96 Nasal Cannula 2 02/04/18 18:30 75 16 170/87 (114) 96 Nasal Cannula 2 02/04/18 18:15 75 16 175/84 (114) 96 Nasal Cannula 2 02/04/18 18:00 73 16 188/87 (120) 97 Nasal Cannula 2 02/04/18 17:45 70 16 188/90 (122) 99 Nasal Cannula 2 02/04/18 17:30 78 16 180/84 (116) 98 Nasal Cannula 2 02/04/18 17:15 76 16 152/76 (101) 98 Nasal Cannula 2 02/04/18 17:09 97.6 79 16 165/83 (110) 98 Nasal Cannula 2 02/04/18 13:55 97.9 72 14 154/76 (102) 95 02/04/18 12:00 84 02/04/18 12:00 98.5 82 17 146/75 (98) 97 02/04/18 11:34 12 02/04/18 10:26 14 02/04/18 10:00 88 02/04/18 08:29 100 21 02/04/18 08:00 98.1 78 25 153/72 (99) 97 02/04/18 08:00 78 I/O 02/04/18 02/04/18 02/04/18 02/05/18 02/05/18 02/05/18 07:00 15:00 23:00 07:00 15:00 23:00 Intake Total 280 ml 1400 ml 420 ml Output Total 750 ml 1150 ml 3500 ml Balance -470 ml 250 ml -3080 ml Intake Oral 280 ml 420 ml Other 1400 ml Output Urine Total 750 ml 1100 ml 3500 ml Stool Total 0 ml Estimated Blood Loss 50 ml Result Diagram: 02/04/18 0301 02/04/18 0301 Imaging Last 24 hours Impressions Chest X-Ray 02/04/18 0600 Signed Impressions: Service Date/Time: Sunday, February 04, 2018 04:25 - CONCLUSION: No acute disease. Shelton Dunham MD Lumbar Spine MRI 02/04/18 0000 Signed Impressions: Service Date/Time: Sunday, February 04, 2018 09:54 - CONCLUSION: 1. At L3 there is a mild compression fracture through the superior endplate with a broad- based moderate-sized posterior traumatic disc herniation resulting in moderate AP canal and lateral recess stenosis. 2. Probable contusion or nondisplaced fracture L2 with marrow edema present. 3. Abnormal T2 signal in the interspinous ligament between L2 and L3 which could represent a ligamentous injury. There is also a fracture extending through the posterior elements of L3 at the superior aspect of the spinous process. 4. The conus medullaris appears intact. Amando Fuentes MD Objective Remarks LUE: dressings clean and dry. intact. NVI with good motion of fingers RUE: +splint. Assessment & Plan Assessment and Plan 1) Left Radius/Ulna Shaft Fxs s/p ORIF - POD 1 2) Right Perilunate Dislocation of wrist s/p ORIF - POD 1 (Dr. Vo) -NWB BUE -daily dressing changes to left forearm POD 2 -work on ROM of wrist and fingers -hand surgery to manage right wrist -plan for DC home when stable -f/u with Nick or PA in 2 weeks Tam Allred/First Anthony ARNOLD Feb 05, 2018 07:29
[2018-02-05] MEDS: LIDOCAINE HCL 5% PATCH T-DERMAL SCH (08:19)
[2018-02-05] MEDS: PANTOPRAZOLE SODIUM 40 MG VIAL IVP SCH (08:19)
[2018-02-05] MEDS: MORPHINE SULFATE 4 MG/ML INJ IV PUSH PRN ×4 (08:19→22:38)
[2018-02-05] MEDS: DOCUSATE SODIUM 100 MG CAP PO SCH ×2 (08:19→21:24)
[2018-02-05] MEDS: SODIUM CHLORIDE FLUSH BID IV FLUSH SCH ×2 (08:20→21:24)
--- NOTE | 2018-02-05 09:10 | HHI.NSPN ---
(J Carlos Sauer) History Chief Complaint: Pain to both surgical sites (J Carlos Sauer) Interval History 02/03: Patient states that he was at [facility] with friends which is the last thing he remembers. The next thing he remembers is waking up in the bed in the [facility] unit. He does have some pain to the lower back and the neck. He denies any numbness or tingling to the extremities except for the fingertips. Mechanism unknown. 02/04: It is now known that the patient fell from a balcony onto another one. The patient is awake and alert when seen this morning. His family is at the bedside. He complains of low back pain. He denies any pain to the neck. He denies any numbness or tingling to the extremities. He does have pain to both upper extremities secondary to his injuries. He denies any headache, dizziness or nausea. No change is noted in his neuro exam. He is to go to surgery today for the upper extremity injuries. 02/05: The patient went for surgery yesterday for open reduction and internal fixation of his right wrist dislocation by Hand Surgery and the left radial and ulnar fractures by Orthopaedic Surgery. He returned to [facility] for further care and monitoring post-operatively. This morning the patient is awake and alert in the bed. He states he has pain at the surgical sites to the upper extremities. He does endorse soreness to the lower back. He has some numbness and tingling to the digits of both hands. Otherwise he has no other pain, numbness or tingling to the extremities. He denies any headache or dizziness. There is no change in his examination. (J Carlos Sauer) Exam Results 02/03/18 02/03/18 02/04/18 02/04/18 02/05/18 02/05/18 06:00 18:00 06:00 18:00 06:00 18:00 Intake Total 0 ml 120 ml 280 ml 1400 ml 420 ml Output Total 0 ml 1250 ml 750 ml 1000 ml 3650 ml Balance 0 ml -1130 ml -470 ml 400 ml -3230 ml Intake Oral 0 ml 120 ml 280 ml 420 ml Other 1400 ml Output Urine Total 0 ml 1250 ml 750 ml 950 ml 3650 ml Stool Total 0 ml Estimated Blood Loss 50 ml Vital Signs Date Time Temp Pulse Resp B/P (MAP) Pulse Ox O2 Delivery O2 Flow Rate FiO2 02/05/18 08:34 96 21 02/05/18 07:40 12 02/05/18 06:00 67 02/05/18 04:00 67 02/05/18 04:00 97.7 76 29 141/70 (93) 93 02/05/18 02:00 71 02/05/18 00:00 98.1 70 14 145/67 (93) 98 02/05/18 00:00 78 02/04/18 22:00 78 02/04/18 21:31 98 02/04/18 20:30 83 16 173/71 (105) 95 Room Air 02/04/18 20:15 80 16 147/65 (92) 93 Room Air 02/04/18 20:00 70 16 176/73 (107) 93 Room Air 02/04/18 20:00 98.7 68 12 149/68 (95) 94 02/04/18 20:00 75 02/04/18 19:45 80 16 173/76 (108) 94 Nasal Cannula 2 02/04/18 19:30 77 16 170/81 (110) 96 Nasal Cannula 2 02/04/18 19:15 78 16 146/72 (96) 96 Nasal Cannula 2 02/04/18 19:00 70 16 159/72 (101) 96 Nasal Cannula 2 02/04/18 18:45 70 16 176/85 (115) 96 Nasal Cannula 2 02/04/18 18:30 75 16 170/87 (114) 96 Nasal Cannula 2 02/04/18 18:15 75 16 175/84 (114) 96 Nasal Cannula 2 02/04/18 18:00 73 16 188/87 (120) 97 Nasal Cannula 2 02/04/18 17:45 70 16 188/90 (122) 99 Nasal Cannula 2 02/04/18 17:30 78 16 180/84 (116) 98 Nasal Cannula 2 02/04/18 17:15 76 16 152/76 (101) 98 Nasal Cannula 2 02/04/18 17:09 97.6 79 16 165/83 (110) 98 Nasal Cannula 2 02/04/18 13:55 97.9 72 14 154/76 (102) 95 02/04/18 12:00 84 02/04/18 12:00 98.5 82 17 146/75 (98) 97 02/04/18 11:34 12 02/04/18 10:26 14 02/04/18 10:00 88 02/04/18 08:29 100 21 02/04/18 08:00 98.1 78 25 153/72 (99) 97 02/04/18 08:00 78 02/04/18 07:00 97 Room Air 02/04/18 06:00 74 02/04/18 04:00 86 02/04/18 04:00 98.6 86 25 173/73 (106) 99 02/04/18 03:12 99 02/04/18 02:00 67 02/04/18 00:00 80 02/04/18 00:00 98.1 80 24 149/67 (94) 99 02/03/18 22:00 83 02/03/18 21:27 100 02/03/18 20:00 72 02/03/18 20:00 98.5 72 21 150/79 (102) 100 02/03/18 19:00 97 Room Air 02/03/18 18:00 83 02/03/18 16:00 80 02/03/18 16:00 98.4 90 25 138/72 (94) 90 02/03/18 14:00 76 02/03/18 12:00 78 02/03/18 12:00 98.1 78 20 143/64 (90) 97 02/03/18 10:00 76 02/03/18 08:00 83 02/03/18 08:00 98.4 83 21 127/60 (82) 95 02/03/18 07:00 96 Room Air 02/03/18 06:00 62 02/03/18 04:00 97.6 78 23 118/57 (77) 96 02/03/18 03:00 97.6 90 18 135/80 (98) 97 02/03/18 03:00 80 02/03/18 03:00 Room Air (J Carlos Sauer) Physical Examination GENERAL: Awake & alert in bed. Affect normal, readily interacts. No apparent distress. HEENT: Normocephalic, atraumatic. PERRLA 3 mm brisk, EOMI. MMM & pink, tongue midline to protrusion. NECK: Midline cervical spine & paraspinals NTTP. Neck supple. No JVD. Trachea midline. MUSCULOSKELETAL: Bilateral forearms in splints. Bilateral arms & lower extremities NTTP. Moves digits of both hands w/o difficulty. Moves BLE w/o any difficulty. Midline lumbar spine mildly TTP. NEUROLOGICAL: AAOx3. Speech clear & appropriate. Follows simple commands w/o difficulty. CN II through XII grossly intact. Sensation decreased to digits of both hands, o/w intact to light touch to all extremities. Unable to asses motor strength of BUE due to injuries but does move digits of both hands without difficulty. Motor strength of BLE is 5/5 to all major flexion & extension muscle groups. (J Carlos Sauer) Lab, Micro, Other Results Recent Impressions Chest X-Ray 02/05/18 0600 Signed Impressions: Service Date/Time: Monday, February 05, 2018 05:04 - CONCLUSION: No acute disease. Shelton Dunham MD Chest X-Ray 02/04/18 0600 Signed Impressions: Service Date/Time: Sunday, February 04, 2018 04:25 - CONCLUSION: No acute disease. Shelton Dunham MD Radius/Ulna X-Ray 02/04/18 0000 Signed Impressions: Service Date/Time: Sunday, February 04, 2018 15:52 - CONCLUSION: Successful ORIF. David Soliman MD Lumbar Spine MRI 02/04/18 0000 Signed Impressions: Service Date/Time: Sunday, February 04, 2018 09:54 - CONCLUSION: 1. At L3 there is a mild compression fracture through the superior endplate with a broad- based moderate-sized posterior traumatic disc herniation resulting in moderate AP canal and lateral recess stenosis. 2. Probable contusion or nondisplaced fracture L2 with marrow edema present. 3. Abnormal T2 signal in the interspinous ligament between L2 and L3 which could represent a ligamentous injury. There is also a fracture extending through the posterior elements of L3 at the superior aspect of the spinous process. 4. The conus medullaris appears intact. Amando Fuentes MD Ankle X-Ray 3/27/18 0000 Signed Impressions: Service Date/Time: Sunday, February 04, 2018 12:58 - CONCLUSION: 1. No acute bony abnormality. Soft tissue swelling of the right ankle. Amando Fuentes MD Thoracic Spine CT 02/03/18221 Signed Impressions: Service Date/Time: Saturday, February 03, 2018 02:39 - CONCLUSION: 1. Fractures of the left first and second ribs. 2. Minimal fracture of the lower sternum. 3. No compression fracture of thoracic spine. Shelton Dunham MD Pelvis X-Ray 02/03/18221 Signed Impressions: Service Date/Time: Saturday, February 03, 2018 02:16 - CONCLUSION: No acute fracture. Shelton Dunham MD Lumbar Spine CT 02/03/18221 Signed Impressions: Service Date/Time: Saturday, February 03, 2018 02:39 - CONCLUSION: 1. Fracture of L3 vertebral body with mild loss of height. Fracture does extend into the both posterior elements. 2. Fracture of the right L2 transverse process. Shelton Dunham MD Head CT 02/03/18221 Signed Impressions: Service Date/Time: Saturday, February 03, 2018 02:32 - CONCLUSION: No acute intracranial disease. Shelton Dunham MD Chest X-Ray 02/03/18221 Signed Impressions: Service Date/Time: Saturday, February 03, 2018 02:16 - CONCLUSION: No acute disease. Shelton Dunham MD Chest CT 02/03/18221 Signed Impressions: Service Date/Time: Saturday, February 03, 2018 02:39 - CONCLUSION: 1. Left first and second rib fractures. 2. No pneumothorax. Shelton Dunham MD Cervical Spine CT 02/03/18221 Signed Impressions: Service Date/Time: Saturday, February 03, 2018 02:32 - CONCLUSION: 1. No fracture or subluxation. 2. Fracture of the first and second ribs on the left. Shelton Dunham MD Abdomen/Pelvis CT 02/03/18221 Signed Impressions: Service Date/Time: Saturday, February 03, 2018 02:39 - CONCLUSION: 1. Fracture L3 vertebral body with possible involvement of the posterior elements. 2. No abdominal visceral injury. Shelton Dunham MD Wrist X-Ray 3/26/18 0000 Signed Impressions: Service Date/Time: Saturday, February 03, 2018 18:04 - CONCLUSION: 1. Carpal dislocation as above. Amando Fuentes MD Wrist X-Ray 02/03/18 0000 Signed Impressions: Service Date/Time: Saturday, February 03, 2018 09:15 - CONCLUSION: 1. Limited two-view rotated exam. 2. Carpal dislocation. 3. Abnormal widening of the scapholunate distance consistent with scapholunate ligament tear. 4. Nondisplaced fracture through the base of the ulnar styloid. Lucas Tavarez MD Radius/Ulna X-Ray 02/03/18 0000 Signed Impressions: Service Date/Time: Saturday, February 03, 2018 02:16 - CONCLUSION: No acute fracture of the forearm. Appears to be dislocation at the wrist. Dedicated views of the wrist is recommended. Shelton Dunham MD Radius/Ulna X-Ray 02/03/18 0000 Signed Impressions: Service Date/Time: Saturday, February 03, 2018 02:16 - CONCLUSION: 1. Displaced fractures of midshaft radius and ulna. 2. There also appears to be fractures of triquetrum carpal bone. Shelton Dunham MD Laboratory Tests Test 02/03/18 02:20 02/03/18 03:00 02/04/18 03:01 White Blood Count 17.0 TH/MM3 10.7 TH/MM3 Red Blood Count 4.81 MIL/MM3 4.29 MIL/MM3 Hemoglobin 15.0 GM/DL 13.5 GM/DL Bedside Hemoglobin 14.6 G/DL Hematocrit 43.6 % 38.4 % Bedside Hematocrit 43.0 % Mean Corpuscular Volume 90.6 FL 89.6 FL Mean Corpuscular Hemoglobin 31.3 PG 31.5 PG Mean Corpuscular Hemoglobin Concent 34.5 % 35.2 % Red Cell Distribution Width 13.6 % 13.7 % Platelet Count 291 TH/MM3 178 TH/MM3 Mean Platelet Volume 9.2 FL 9.4 FL CBC Comment AUTO DIFF DIFF FINAL Differential Total Cells Counted 100 Neutrophils % (Manual) 38 % Lymphocytes % 54 % Monocytes % 6 % Eosinophils % 1 % Basophils % 1 % Neutrophils # (Manual) 6.5 TH/MM3 Differential Comment FINAL DIFF MANUAL Platelet Estimate NORMAL Platelet Morphology Comment NORMAL Red Cell Morphology Comment NORMAL Prothrombin Time 11.2 SEC Prothromb Time International Ratio 1.1 RATIO Activated Partial Thromboplast Time 25.7 SEC Bedside Sodium 142 MMOL/L Bedside Potassium 3.6 MMOL/L Bedside Chloride 103 MMOL/L Bedside Blood Urea Nitrogen 14 MG/DL Bedside Creatinine 1.6 MG/DL Bedside Glucose 152 MG/DL Nasal Screen MRSA (PCR) MRSA NOT DETECTED Neutrophils (%) (Auto) 69.6 % Lymphocytes (%) (Auto) 18.3 % Monocytes (%) (Auto) 11.5 % Eosinophils (%) (Auto) 0.4 % Basophils (%) (Auto) 0.2 % Neutrophils # (Auto) 7.5 TH/MM3 Lymphocytes # (Auto) 2.0 TH/MM3 Monocytes # (Auto) 1.2 TH/MM3 Eosinophils # (Auto) 0.0 TH/MM3 Basophils # (Auto) 0.0 TH/MM3 Blood Urea Nitrogen 13 MG/DL Creatinine 0.86 MG/DL Random Glucose 107 MG/DL Total Protein 7.3 GM/DL Albumin 3.8 GM/DL Calcium Level 8.4 MG/DL Alkaline Phosphatase 91 U/L Aspartate Amino Transf (AST/SGOT) 104 U/L Alanine Aminotransferase (ALT/SGPT) 67 U/L Total Bilirubin 1.4 MG/DL Sodium Level 136 MEQ/L Potassium Level 3.8 MEQ/L Chloride Level 102 MEQ/L Carbon Dioxide Level 24.2 MEQ/L Anion Gap 10 MEQ/L Estimat Glomerular Filtration Rate 113 ML/MIN (J Carlos Sauer) Medical Decision Making Impression and Plan Impression: 1.) Fall [facility] 2.) Concussion w/loss of consciousness, unknown period of time 3.) L3 vertebral body fracture 4.) Right L2 transverse process fracture 5.) Lower sternum fracture 6.) Left 1st & 2nd rib fractures 7.) Right carpus dislocation 8.) Left radius fracture 9.) Left ulna fracture 10.) Left triquetrum carpal bone fracture 11.) Thoracolumbar junction pain The patient is doing well. He has some numbness & tingling to the digits of both hands o/w there are no sensorimotor deficits. Intermittent hypertension. CT brain unremarkable for any acute findings. CT cervical spine unremarkable for any acute cervical spine findings , noted are left-sided 1st & 2nd rib fractures. CT thoracic spine unremarkable for any acute thoracic spine findings , noted are a lower sternum and left-sided 1st & 2nd rib fractures. CT lumbar spine demonstrates an L3 vertebral body fracture w/minimal loss of height as well as a right L2 transverse process fracture. MRI lumbar spine demonstrates known L3 compression fracture. Broad- based posterior disc herniation w/moderate AP and lateral recess stenosis. Probable L2 contusion or nondisplaced fracture w/marrow edema. Abnormal T2 signal to the interspinous ligament between L2 and L3 which could be injury. Fracture through posterior elements of L3 at the superior spinous process. Plan: Primary & critical care management per Trauma. Neuro checks. Stat CT brain for any decline in neuro/mental status. NPO except for meds. Bedrest. Logroll patient. TLSO brace. Keep patient flat, do not turn [id number]. Continue [place] J cervical collar. Hold pharmacologic DVT prophylaxis. Mechanical DVT prophylaxis. Stress ulcer prophylaxis. Continue IVF per Trauma. Pain medication per Trauma. CMP, CBC, PT/INR & aPTT in AM. Plan to take the patient to the OR tomorrow. (J Carlos Sauer) Attending Statement The exam, history, and the medical decision-making described in the above note were completed with the assistance of the mid-level provider. I reviewed and agree with the findings presented. I attest that I had a [id number] encounter with the patient on the same day, and personally performed and documented my assessment and findings in the medical record. Patient remains awake and alert, sensory motor function intact lower extremities. Reviewed the imaging findings and treatment recommendations with the patient. The surgical procedure risks and possible complications fully discussed with the patient QUESTIONS answered. He agrees to proceed with surgery 02/06/18 for stabilization T2-3 fracture with posterior element distraction injury. (Daniel Tyson MD) J Carlos Sauer Feb 05, 2018 09:10 Daniel Tyson MD Feb 06, 2018 18:43
[2018-02-05] MEDS: ENOXAPARIN SODIUM 30 MG/0.3 ML SYRINGE SQ SCH ×2 (10:57→21:23)
--- NOTE | 2018-02-05 13:31 | PD.PSY.CON ---
Provisional Diagnosis Admission Date Feb 03, 2018 at 02:55 [place] I. R/O substance-induced psychosis/mood disorder, alcohol-induced mood disorder [place] II. Deferred [place] III. No significant medical history [place] IV. Occasional use of alcohol and marijuana [place] V. 50 History of Present Illness Service Psychiatry Consult Requested By Surgical team Reason for Consult Suicidal attempt Primary Care Physician Unknown HPI The patient is a 22-year-old man, here in [facility] for spring vacation, but he is a college student in [place], his family lives in [place], without no previous psychiatric history, no previous suicidal attempts, no previous psychiatric hospitalizations, he reports the use of alcohol and marijuana occasionally, no significant medical history, who presented in [place] via EMS as a trauma alert. The patient was apparently on the sixth floor balcony of the hotel where he somehow fell off landing on the third floor roof below him. When paramedics arrived, they found the patient to have a GCS of 8. The reported said that he appeared intoxicated. Patient is admitted in the hospital due to: Left Radius/Ulna Shaft Fxs s/p ORIF - POD 1, Right Perilunate Dislocation of wrist s/p ORIF - POD 1. Consulted to psychiatry because the patient was [place] acted by law-enforcement with a concern of a potential suicidal attempt by jumping of a 6th floor. On psychiatric evaluation today the patient is found in his bed, he is calm, cooperative. Patient reports that he does not remember exactly the moment in which he jump off a 6 floor. He says that he is unable to recall the circumstances at the moment he decided to do that. He does remember that especially in the afternoon he was drinking some alcohol, he says that he was aware that he could not get any alcohol inside the club at night "and I was just trying to heat up my self". Once he was in the nightclub, his friends were sneaking beers to him. At some point he failed completely lost, he could not find his friends, he walked back to the hotel, "and after that I do not really remember what happened". He does report that when he lost his friends, he felt abandoned, he felt a strange and despair. He does deny suicidal intentions in his actions. He says that he has been very happy, he was on vacation, he was enjoying his vacations. He is a college student, his major reason biology, his plan is to become a doctor. He reports having good grades, good friends, a very good family support. He reports that this is the first time the something similar happened to him. He says that he is actually very happy to be alive he feels efrain. The patient is fully oriented 3, no attention deficit, no fluctuation of consciousness are present. During my evaluation the patient is mostly logical, coherent and relevant. At some point he seems to be a little bit guarded, and internally preoccupied, however no loosening of associations, no ideas of reference, no paranoia, no delusions, are present during this evaluation. Collateral information from his mother, Veronica Jones and also form his father, Vijay Jones was obtained. They both coincide that the patient was not depressed, he was just drunk and he did not try to commit suicide. They confirmed that the patient does not have any previous psychiatric history, there is no psychiatric history in the family, the patient has been at baseline, and not depressed symptoms, psychosis, marii has been perceived by day in the last days. They both feels responsible and safe with taking the patient back home once medically stable. They do not feel that the patient benefit or psychiatric admission at this moment. However, they both agree and looking for counseling for the patient once he is discharged. Review of Systems Constitutional: DENIES: Diaphoretic episodes, Fatigue, Fever, Weight gain, Weight loss, Chills, Dizziness, Change in appetite, Night Sweats Endocrine: DENIES: Heat/cold intolerance, Polydipsia, Polyuria, Polyphagia Eyes: DENIES: Blurred vision, Diplopia, Eye inflammation, Eye pain, Vision loss , Photosensitivity, Double Vision Ears, nose, mouth, throat: DENIES: Tinnitus, Hearing loss, Vertigo, Nasal discharge, Oral lesions, Throat pain, Hoarseness, Ear Pain, Running Nose, Epistaxis, Sinus Pain, Toothache, Odynophagia Respiratory: DENIES: Apneas, Cough, Snoring, Wheezing, Hemoptysis, Sputum production, Shortness of breath Cardiovascular: DENIES: Chest pain, Palpitations, Syncope, Dyspnea on Exertion , PND, Lower Extremity Edema, Orthopnea, Claudication Gastrointestinal: DENIES: Abdominal pain, Black stools, Bloody stools, Constipation, Diarrhea, Nausea, Vomiting, Difficulty Swallowing, Anorexia Genitourinary: DENIES: Sexual dysfunction, Urinary frequency, Urinary incontinence, Urgency, Hematuria, Dysuria, Nocturia, Penile Discharge, Testicular Pain, Testicular Swelling Musculoskeletal: COMPLAINS OF: Joint pain, Muscle aches, Back pain, Neck pain, DENIES: Stiffness, Joint Swelling Integumentary: DENIES: Abnormal pigmentation, Nail changes, Pruritus, Rash Hematologic/lymphatic: DENIES: Bruising, Lymphadenopathy Immunologic/allergic: DENIES: Eczema, Urticaria Neurologic: DENIES: Abnormal gait, Headache, Localized weakness, Paresthesias, Seizures, Speech Problems, Tremor, Poor Balance Psychiatric: DENIES: Anxiety, Confusion, Mood changes, Depression, Hallucinations, Agitation, Suicidal Ideation, Homicidal Ideation, Delusions Past Family Social History Coded Allergies: No Known Allergies (Unverified , 02/03/18) No Active Prescriptions or Reported Meds Current Medications Medications (Trade) Dose Ordered Sig/Joselito Route Start Time Stop Time Status Last Admin (NS Flush) 2 ml UNSCH PRN IV FLUSH 02/03/18 03:00 02/04/18 11:29 (Vasotec Inj) 1.25 mg Q8H PRN IV PUSH 02/03/18 03:00 (Zofran Inj) 4 mg Q6H PRN IV PUSH 02/03/18 03:00 02/04/18 09:26 (Protonix Inj) 40 mg Q24H IVP 02/03/18 09:00 02/05/18 08:19 (Colace) 100 mg BID PO 02/03/18 09:00 02/05/18 08:19 (Milk Of Magnesia Liq) 30 ml Q6H PRN PO 02/03/18 03:00 Miscellaneous Information 1 Q361D XX 02/03/18 03:00 (Chlorhexidine 2% Cloth) 3 pack Taper DAILY@04 TOP 02/03/18 04:00 01/30/19 03:59 02/04/18 23:49 (Chlorhexidine 2% Cloth) 3 pack UNSCH PRN TOP 02/03/18 03:00 (NS Flush) 2 ml BID IV FLUSH 02/03/18 09:00 02/05/18 08:20 (Robaxin) 500 mg Q8HR PO 02/03/18 06:45 02/05/18 13:07 (Lidoderm 5% Patch.12 Hr) 1 patch DAILY T-DERMAL 02/03/18 09:00 02/05/18 08:19 (Duoneb Neb) 1 ampule Q6HR NEB NEB 02/03/18 10:00 02/05/18 08:33 (Duoneb Neb) 1 ampule Q2HR NEB PRN NEB 02/03/18 06:45 Miscellaneous Information 1 Q24H T-DERMAL 02/03/18 21:00 02/04/18 21:00 Miscellaneous Information ALL NURSING DEPARTME... UNSCH PRN .XX 02/04/18 17:11 02/05/18 17:10 ([place] 10-325 Mg) 1 tab Q3H PRN PO 02/04/18 18:45 02/05/18 13:08 (Morphine Inj) 4 mg Q3H PRN IV PUSH 02/04/18 18:45 02/05/18 08:19 (Lovenox Inj) 30 mg Q12H SQ 02/05/18 10:00 02/05/18 10:57 Family Psych History No previous family psychiatric history Social History The patient was born and raised in [place], is a college student, he is here in [facility] for spring, single, he is getting a major in biology, he was to be a doctor medicine Patient's Strengths (min. 2) High level of education, good family Physical Exam No tremors, no EPS, no stiffness, no withdrawal symptoms Vital Signs Vital Signs Date Time Temp Pulse Resp B/P (MAP) Pulse Ox O2 Delivery O2 Flow Rate FiO2 02/05/18 12:00 98.0 75 15 155/79 (104) 96 02/05/18 08:34 21 02/05/18 07:00 Room Air 02/04/18 19:45 2 I/O 02/05/18 02/05/18 02/06/18 08:00 16:00 00:00 Intake Total 420 ml Output Total 3500 ml Balance -3080 ml Mental Status Examination Appearance: Appropriate Consciousness: Alert Orientation: x4 Motor Activity: Normal gait Speech: Unremarkable Language: Adequate Fund of Knowledge: Adequate Attention and Concentration: Adequate Memory: Unremarkable Mood: Appropriate Affect: Appropriate Thought Process & Associations: Intact Thought Content: Appropriate Hallucination Type: None Delusion Type: None Suicidal Ideation: No Suicidal Plan: No Suicidal Intention: No Homicidal Ideation: No Homicidal Plan: No Homicidal Intention: No Insight: Adequate Judgment: Adequate Assessment & Plan Problem List: (1) Substance induced mood disorder ICD Codes: F19.94 - Other psychoactive substance use, unspecified with psychoactive substance-induced mood disorder Assessment & Plan: On psychiatric evaluation today the patient is calm, cooperative, logical, coherent and relevant. He presents a little bit guarded, but in general open with a psychiatric interview. The patient does not present any objective or subjective concerning symptomatology of depression, anxiety, marii or psychosis. He denies suicidal and homicidal ideation, he denies visual and auditory hallucinations. He is fully oriented 3, no attention deficit, no fluctuation of consciousness, no paranoia, no ideas of reference, no loosening of associations, no delusions or marii are present during this evaluation. My impression is that recent event in which the patient ended up jumping from the sixth floor to a third floor and having as a result multiple fractures and injuries, was most probably the result of mood instability and probable psychosis secondary to acute alcohol intoxication and potentially to the use of psychoactive drugs. Unfortunately, the patient was not tested for drugs of alcohol upon his arrival in the ER. A primary major psychiatric illness decompensation such as depression or first brake of schizophrenia are less likely, but still possible. As per collateral information from his parents , the patient does not have any previous psychiatric history, no previous suicide attempts, no history of self harming behavior, he is a high functioning , smart, well behaved young adolescent who has been doing very well in college. I am going to leave the Miramontes act in place and going to revisit the patient for a reevaluation and determination of final disposition. But, psychiatric hospitalization at this time does not seem to be beneficial. Extensive support , motivation and psychoeducation provided. Assessment & Plan Estimated LOS: Enrique Danielle MD Feb 05, 2018 13:31
--- NOTE | 2018-02-05 15:26 | PD.HHIRBSE ---
Patient History Record/History Review Reason for Referral: The patient is a 22 year old right handed male status post multitraumatic injury secondary to a fall from the sixth to the third floor balcony on 2017. This patient was visiting [facility] for spring break vacation, and is originally from [place], [place], and is a college student in [place]. This patient has no prior psychiatric history, no previous suicidal attempts, or no previous psychiatric hospitalizations. He reported the use of alcohol and marijuana occasionally, and no significant medical history. On 02/03/2018, he presented in [place] via EMS as a trauma alert. The patient was apparently on the sixth floor balcony of the hot where he somehow fell off landing on the third floor roof below him. When paramedics arrived, they found the patient to have a GCS of 8 and was intoxicated. He sustained multiple injuries including Left Radius/Ulna Shaft Fxs s/p ORIF - POD 1, Right Perilunate Dislocation of wrist s/p ORIF - POD 1. His head CT was within normal limits. Once medically stable, Psychiatry was consulted because the patient was [place] acted by law- enforcement with a concern of a potential suicidal attempt by jumping of a 6th floor. On psychiatric evaluation today the patient is found in his bed, and was described as calm and cooperative. The patient explained to the psychiatrist that he does not remember exactly the moment in which he jump off a 6 floor. He reported that he was unable to recall the circumstances at the moment he decided to do that. He reportedly does remember that especially in the afternoon he was drinking some alcohol, he says that he was aware that he could not get any alcohol inside the club at night. Once he was in the nightclub, his friends were sneaking beers to him. He became lost and walked back to the hotel, "and after that I do not really remember what happened". He reported that when he lost his friends, he felt abandoned, he felt a strange and despair. He does deny suicidal intentions in his actions. He says that he has been very happy, he was on vacation, he was enjoying his vacation. This patient is a second year college student, majoring in biology, and he plans to go to medical school. He reports having good grades, good friends, and a very good family support. His ACT score was 31. For Dr. Ayala, the patient is fully oriented 3, no attention deficit, no fluctuation of consciousness are present. During Dr. Ayala's evaluation the patient is mostly logical, coherent and relevant. At some point he seems to be a little bit guarded, and internally preoccupied, however no loosening of associations, no ideas of reference, no paranoia, no delusions, are present during this evaluation. Collateral information from his mother, Veronica Jones and also form his father, Vijay Jones was obtained. They both coincide that the patient was not depressed, he was just drunk and he did not try to commit suicide. They confirmed that the patient does not have any previous psychiatric history, there is no psychiatric history in the family, the patient has been at baseline , and not depressed symptoms, psychosis, marii has been perceived by day in the last days. They both feels responsible and safe with taking the patient back home once medically stable. They do not feel that the patient benefit or psychiatric admission at this moment. However, they both agree and looking for counseling for the patient once he is discharged. Given the severity of his injuries, this patient is referred for baseline neurobehavioral status examination per trauma protocol to assess cognitive, behavioral and emotional aspects of the injury and to provide treatment recommendations. Neuropsych Precautions: None. Past Surgical/Medical History Past Surgery: Yes Major surgery in last 100 days: Unknown Hx Anesthesia Reactions: No Hx Orthopedic Surgery: Yes Hx Chest Surgery: No Hx Abdominal Surgery: No Hx Genitourinary Surgery: No Hx Endocrine Surgery: No Hx Eye Surgery: No Hx Ear Surgery: No Hx Oral Surgery: No History of Transplant: No Hx of Neuro Prob: No Hx of Musculoskeletal Pro: No Hx of Cardiovascular Prob: No Hx of Respiratory Problem: No Hx of GI Problems: No Hx of Problems: No Hx of Endocrine Problems: No Hx of Eye Probl: No Hx of Hearing or Ear Problems: No Hx Dental Problems: No Hx Psychiatric Problems: No Hx Blood Dyscrasias: No Hx of MDRO: No Hx of Body/Medical Devices: No Blood Transfusion History Will receive Blood /Blood prod: Yes Medication Active Medications Acetaminophen 100 ml @ As Directed STK-MED ONCE IV; Start 02/04/18 at 15:40; Stop 02/04/18 at 15:41; Status DC Acetaminophen/ Hydrocodone Bitart ([place] 10-325 Mg) 1 tab Q3H PRN PO Last administered on 02/05/18at 13:08; Admin Dose 1 TAB; Start 02/04/18 at 18:45 Enoxaparin Sodium (Lovenox Inj) 30 mg Q12H SQ Last administered on 02/05/18at 10: 57; Admin Dose 30 MG; Start 02/05/18 at 10:00 Fentanyl Citrate (fentaNYL INJ) 300 mcg STK-MED ONCE .ROUTE; Start 02/04/18 at 17:31; Stop 02/04/18 at 17:32; Status DC Hydromorphone HCl (Dilaudid Pf Inj) 2 mg STK-MED ONCE .ROUTE Last administered on 02/04/18at 18:09; Admin Dose 0.5 MG; Start 02/04/18 at 18:09; Stop 02/04/18 at 18:10; Status DC Labetalol HCl (Trandate Inj) 100 mg STK-MED ONCE .ROUTE Last administered on at 17:48; Admin Dose 100 MG; Start 02/04/18 at 17:48; Stop 02/04/18 at 17: 49; Status DC Meperidine HCl (*DEMEROL INJ PERIprocedural ONLY) 25 mg STK-MED ONCE .ROUTE Last administered on 02/04/18at 17:27; Admin Dose 25 MG; Start 02/04/18 at 17:27 ; Stop 02/04/18 at 17:28; Status DC Midazolam HCl (Versed Inj) 2 mg STK-MED ONCE .ROUTE; Start 02/04/18 at 17:18; Stop 02/04/18 at 17:19; Status DC Miscellaneous Information ALL NURSING DEPARTME... UNSCH PRN .XX; Start at 17:11; Stop 02/05/18 at 17:10 Morphine Sulfate (*morphine INJ PERIprocedure ONLY) 8 mg STK-MED ONCE .ROUTE Last administered on 02/04/18at 17:37; Admin Dose 5 MG; Start 02/04/18 at 17:37; Stop 02/04/18 at 17:38; Status DC Morphine Sulfate (*morphine INJ PERIprocedure ONLY) 8 mg STK-MED ONCE .ROUTE Last administered on 02/04/18at 17:45; Admin Dose 8 MG; Start 02/04/18 at 17:45; Stop 02/04/18 at 17:46; Status DC Morphine Sulfate (Morphine Inj) 4 mg Q3H PRN IV PUSH Last administered on at 13:58; Admin Dose 4 MG; Start 02/04/18 at 18:45 Mental Status Assessment Orientation: oriented to Self, oriented to Place, oriented to Time, oriented to Situation Mental Status: WFL: Thought processing, Language/Interactions, Attention, Learning/Memory, Problem-Solving, Visuospatial/Construction, Self-regulation, Other Observation The patient is alert and oriented to person, place, time and circumstances surrounding the reason for hospitalization. In terms of attention skills, the patient was able to remain on task and remember basic and complex instructions. In terms of memory functioning, the patient was able to remember three of three words after a brief period of time. His remote memory abilities were also intact. The patient initiated spontaneous conversation. Speech was characterized by adequate prosody, grammar, articulation, volume and rate. Basic naming skills were intact. Language repetition skills were intact. The patients comprehensions for basic one- and two-stage commands were intact. Basic verbal abstraction and problem-solving skills were intact as were his mathematical calculation abilities. The patient appears to posses adequate insight and awareness into their situation and within the limits of this brief evaluation, adequate judgment. Impression Normal neurocognitive functioning. Adjustment/Coping Assessment Adjustment/Coping: None: Depression, Anxiety, Pain, Apathy, Awareness, Insight Observation The patients thought content was free from suicidal, homicidal or paranoid ideation, and the patients thought processes were logical and goal-directed. The patients mood was euthymic but guarded, and his affect was stable and appropriate. LTG Status: Deferred STG Status: Deferred Team Members: Neuropsychologist Behavior Assessment Agitation: None Treatment Engagement: Average Observation Behaviorally, the patient demonstrated no signs of agitation, impulsivity or disinhibition. There was no remarkable evidence of a formal thought disorder or psychosis. LTG - Status: Deferred STG Status: Deferred Team Members: Neuropsychologist Diagnosis/Discharge Plan Impression This 22 year old male is s/p multitrauma from a balcony fall on 02/03/2018, resulting in rib fractures, radial and ulnar fractures and vertebral body fractures. Head CT was within normal limits. He was GCS of 8 at the scene, improved to 14 on arrival. Evaluation results reveal no demonstrable neurocognitive impairment, which would be consistent with an absence of neuropathology from his fall. Obviously, he is an extremely efrain young man who appears to have made a very poor choice. Emotionally, he appears without without depression, anxiety or characterological maladjustment. His substance abuse at such a young age needs to be addressed within counseling setting once he is medically stable. I am concerned that his alcohol abuse may be a bit greater than he leads one to believe, and he will be monitored for such in the ICU. Diagnosis: (1) Alcohol dependence in controlled environment Maximizing acute care outcome It is recommended that the patient be monitored for emergent behavioral impulsivity as the medical condition evolves. At this point in the recovery process, the patient does have cognitive capacity as the patient is able to understand a situation and its likely consequences, and he is able to manipulate information rationally. Cognitive capacity will be assessed throughout the recovery process. Discharge Planning Anticipated Problems Ongoing areas of concern will include behavioral impulsivity, lack of insight and judgment, which is expected to improve with time and treatment. Presently , the patient awake, alert and conversant. His alcohol use/abuse is concerning and should be addressed once medically stable and back at home through a counseling program. Treatment Plan This clinician will continue to follow with you throughout the course of this patients critical care treatment, and I will be available to meet with the patients family/support system to facilitate their understanding and the ongoing care of their family member. The goals of neuropsychological intervention shall be both educational and supportive to the family/support system as is deemed clinically appropriate. Discharge Needs Counseling once he is at home/back at school. Thank you Thank you for the opportunity to assist in this patients care. Todd Gonzalez, Ph.D., ABPP Board Certified in Clinical Neuropsychology [place] [employer] [place] Licensed Psychologist #[id number] Todd Gonzalez PhD Feb 05, 2018 15:26
--- NOTE | 2018-02-05 16:24 | HHI.CCPN ---
Subjective Brief History [place]: This is a 22-year-old male who was out with friend last night at a local club. The patient does not remember anything past that. We are told he either jumped or fell from his sixth story balcony, and landed on the third floor. INJURIES: Sternum fx LEFT rib fx (1,2) L2 transverse process fx L3 vertebral body fx LEFT radius/ulna fx LEFT triquetrum carpal bone RIGHT carpus/wrist dislocation 24 Hour Review/Hospital Course 02/03/2018 PTD: 0 Patient lying in bed. No distress noted. Bilateral arms in splint and wrapped with Fabio bandage. Patient is able to move all extremities well and to command. He does complain of tingling in his right hand. Additionally, patient complains of pain in his back. 3 Patient remained stable He is neurologically intact Undergoing MRI lumbar spine Plan will be decided by neurosurgery according to this 02/05 Patient is stable from general trauma standpoint Preop for lumbar fixation with the neurosurgical Orthopedic and hand surgery inputs appreciated npo after MN Objective Vital Signs Date Time Temp Pulse Resp B/P (MAP) Pulse Ox O2 Delivery O2 Flow Rate FiO2 02/05/18 14:00 90 02/05/18 12:00 98.0 15 155/79 (104) 96 02/05/18 08:34 21 02/05/18 07:00 Room Air 02/04/18 19:45 2 Intake and Output 02/05/18 02/05/18 02/06/18 08:00 16:00 00:00 Intake Total 420 ml Output Total 3500 ml Balance -3080 ml Result Diagram: 02/04/18 0301 02/04/18 0301 Imaging Last 24 hours Impressions Chest X-Ray 02/05/18 0600 Signed Impressions: Service Date/Time: Monday, February 05, 2018 05:04 - CONCLUSION: No acute disease. Shelton Dunham MD Exam MANAGER BENEFIT G score 15 Hemodynamic/Cardiac Stable Pulmonary/Respiratory Clear bilateral Abdomen/GI Nutrition Soft Urinary Catheter Assessment Urinary Catheter: Yes Date of Insertion: Feb 03, 2018 Vascular Central Line Catheter Vascular Central Line Catheter: No Assessment and Plan Assessment: (1) Sternum fx ICD Code: S22.20XA - Unspecified fracture of sternum, initial encounter for closed fracture Status: Acute (2) Left rib fracture ICD Code: S22.32XA - Fracture of one rib, left side, initial encounter for closed fracture Status: Acute (3) Fracture of L2 vertebra ICD Code: S32.029A - Unspecified fracture of second lumbar vertebra, initial encounter for closed fracture (4) L3 vertebral fracture ICD Code: S32.039A - Unspecified fracture of third lumbar vertebra, initial encounter for closed fracture Status: Acute (5) Closed fracture of head of left ulna ICD Code: S52.602A - Unspecified fracture of lower end of left ulna, initial encounter for closed fracture Status: Acute (6) Dislocation of right wrist ICD Code: S63.004A - Unspecified dislocation of right wrist and hand, initial encounter Status: Acute Plan [place]: This is a 22-year-old male who was out at a club. Returned home. Fell/jumped from a 6 story balcony and landed on the third floor. INJURIES: Sternum fx LEFT rib fx (1,2) L2 transverse process fx L3 vertebral body fx LEFT radius/ulna fx LEFT triquetrum carpal bone RIGHT carpus/wrist dislocation Procedures: Consults: Neurosurgery. Orthopedics. Case management. Diet: NPO Pulmonary: Encourage good pulmonary toileting. IS and acapella at bedside and pt encouraged to use. Rationale for use explained to patient, and verbalized understanding. Duo nebs. PAIN Management: [place] 5-10 mg q 4h. Morphine 2 mg q 3h. Robaxin 500 mg q 8h. Lidocaine patch Activity: BR. PT and OT ordered. Log roll only GI prophylaxis: Protonix IV Bowel regimen: Colace and MOM. LBM: 0 DVT prophylaxis: Mechanical VTE with SCDs. Chemical management TBD. DC Planning: Case management consulted for assistance with final discharge disposition. Emotional support provided to patient and family at bedside and plan of care discussed. Discussed with FIELD CROP HARVEST CONTRACTOR at bedside during trauma rounds. Discussed pt condition and plan of care with collaborating trauma surgeon. Patient is currently managed in the trauma ICU.. The trauma team will round each day, and evaluate plan of care on a daily basis. Assessment and Plan 02/04; continue pain control Discuss chemical DVT prophylaxis with neurosurgeon Follow-up MRI results Transfer floor Continue spinal precautions 02/05 Continue pain control Psych input appreciated patient's is for now on Miramontes act DVT prophylaxis Keep in ICU until postop Problem Qualifiers (1) Sternum fx: Qualified Codes: S22.20XA - Unspecified fracture of sternum, initial encounter for closed fracture (2) Left rib fracture: Qualified Codes: S22.42XA - Multiple fractures of ribs, left side, initial encounter for closed fracture (3) Fracture of L2 vertebra: Qualified Codes: S32.029A - Unspecified fracture of second lumbar vertebra, initial encounter for closed fracture (4) L3 vertebral fracture: Qualified Codes: S32.039A - Unspecified fracture of third lumbar vertebra, initial encounter for closed fracture (5) Closed fracture of head of left ulna: Qualified Codes: S52.602A - Unspecified fracture of lower end of left ulna, initial encounter for closed fracture (6) Dislocation of right wrist: Qualified Codes: S63.004A - Unspecified dislocation of right wrist and hand, initial encounter Ellie Finch MD Feb 05, 2018 16:24
[2018-02-05] MEDS: REMOVE OLD LIDOCAINE PATCH T-DERMAL SCH (21:00)
[2018-02-05] MEDS: SODIUM CHLORIDE 0.9% FLUSH 10 ML FLUSH IV FLUSH PRN (22:38)
[2018-02-06] VITALS (9 sets, daily range): BP systolic 131–155; BP diastolic 71–90; PULSE 76–94; RESP 17–21; TEMP 97.7–98.6; O2SAT 95–97
[2018-02-06] MEDS: ACETAMINOPHEN/HYDROcodone 325 MG/10 MG TAB PO PRN ×3 (00:23→23:35)
[2018-02-06] MEDS: MORPHINE SULFATE 4 MG/ML INJ IV PUSH PRN ×4 (01:13→21:45)
[2018-02-06] MEDS ORDERED: LIDOCAINE HCL 5% PATCH T-DERMAL SCH (01:15)
[2018-02-06] MEDS: RESP: ALBUTEROL 2.5 MG/IPRATROPIUM 0.5 MG NEB (SCH) NEB ×2 (03:03→08:50)
[2018-02-06] MEDS: CHLORHEXIDINE GLUCONATE 2 % 1 PACK (2 CLOTHS) TOP SCH (04:00)
[2018-02-06] MEDS: METHOCARBAMOL 500 MG TAB PO SCH ×3 (06:00→21:54)
--- NOTE | 2018-02-06 06:26 | RADRPT ---
EXAM DATE/TIME: 02/06/2018 05:02 [facility] COMPARISON: CHEST SINGLE AP, February 05, 2018, 5:04. INDICATIONS : Follow up trauma. Short of breath. MEDICAL HISTORY : None. SURGICAL HISTORY : None. ENCOUNTER: Subsequent ACUITY: 4 - 6 days PAIN SCORE: Non-responsive. LOCATION: Bilateral chest FINDINGS: A single view of the chest demonstrates the lungs to be symmetrically aerated without evidence of mas s, infiltrate or effusion. The cardiomediastinal contours are unremarkable. Osseous structures are intact. CONCLUSION: 1. No active disease. Cardiomegaly. Amando Fuentes MD on February 06, 2018 at 6:24 Board Certified Radiologist. This report was verified electronically.
--- NOTE | 2018-02-06 07:00 | PD.ORT.PN ---
Subjective Subjective Remarks POD 2 s/p ORIF left BBFA doing well. pain controlled. states sore but controlled. reports right ankle pain is improving. Objective Vitals Vital Signs Date Time Temp Pulse Resp B/P (MAP) Pulse Ox O2 Delivery O2 Flow Rate FiO2 02/06/18 06:00 88 02/06/18 04:00 97.7 76 20 131/78 (95) 97 02/06/18 04:00 77 02/06/18 02:00 86 02/06/18 00:00 98.6 92 20 146/71 (96) 95 02/06/18 00:00 92 02/05/18 22:00 92 02/05/18 20:44 98 21 02/05/18 20:00 96 Room Air 02/05/18 20:00 98.4 88 20 144/72 (96) 95 02/05/18 20:00 88 02/05/18 18:00 91 02/05/18 16:00 98.2 86 17 152/74 (100) 95 02/05/18 16:00 86 02/05/18 14:00 90 02/05/18 12:00 98.0 75 15 155/79 (104) 96 02/05/18 12:00 75 02/05/18 10:00 70 02/05/18 08:34 96 21 02/05/18 08:00 79 02/05/18 08:00 98.7 68 15 151/71 (97) 96 02/05/18 07:40 12 02/05/18 07:00 93 Room Air I/O 02/05/18 02/05/18 02/05/18 02/06/18 02/06/18 02/06/18 07:00 15:00 23:00 07:00 15:00 23:00 Intake Total 420 ml 58 ml 1111.2 ml 240 ml Output Total 3500 ml 1900 ml 900 ml Balance -3080 ml 58 ml -788.8 ml -660 ml Intake Oral 420 ml 600 ml 240 ml IV Total 58 ml 511.2 ml Output Urine Total 3500 ml 1900 ml 900 ml Stool Total 0 ml # Bowel Movements 0 0 Result Diagram: 02/04/1830002/04/18 030 Imaging Last 24 hours Impressions Chest X-Ray 02/04/18 0600 Signed Impressions: Service Date/Time: Sunday, February 04, 2018 04:25 - CONCLUSION: No acute disease. Shelton Dunham MD Lumbar Spine MRI 02/04/18 0000 Signed Impressions: Service Date/Time: Sunday, February 04, 2018 09:54 - CONCLUSION: 1. At L3 there is a mild compression fracture through the superior endplate with a broad- based moderate-sized posterior traumatic disc herniation resulting in moderate AP canal and lateral recess stenosis. 2. Probable contusion or nondisplaced fracture L2 with marrow edema present. 3. Abnormal T2 signal in the interspinous ligament between L2 and L3 which could represent a ligamentous injury. There is also a fracture extending through the posterior elements of L3 at the superior aspect of the spinous process. 4. The conus medullaris appears intact. Amando Fuentes MD Objective Remarks LUE: dressings clean and dry. intact. NVI with good motion of fingers RUE: +splint. Assessment & Plan Assessment and Plan 1) Left Radius/Ulna Shaft Fxs s/p ORIF - POD 2 2) Right Perilunate Dislocation of wrist s/p ORIF - POD 2 (Dr. Vo) -NWB BUE -daily dressing changes to left forearm POD 2 -work on ROM of wrist and fingers -hand surgery to manage right wrist -plan for DC home when stable -right ankle xrays reviewed and negative. -f/u with Nick or PA in 2 weeks Tam Allred/Peanut Sorter PA Feb 06, 2018 07:00
[2018-02-06] MEDS: PANTOPRAZOLE SODIUM 40 MG VIAL IVP SCH (07:51)
[2018-02-06] MEDS: ONDANSETRON HCL 4 MG/2 ML VIAL IV PUSH PRN ×2 (07:51→21:45)
[2018-02-06] MEDS: LIDOCAINE HCL 5% PATCH T-DERMAL SCH (07:52)
[2018-02-06] MEDS: DOCUSATE SODIUM 100 MG CAP PO SCH (07:52)
[2018-02-06] MEDS: SODIUM CHLORIDE FLUSH BID IV FLUSH SCH ×2 (07:52→21:00)
--- NOTE | 2018-02-06 08:09 | HHI.PR ---
Neuropsych Behavior Behavior: Intact: Coping/Acceptance, Cooperative w/ Treatment, Motivation, Frustration Tolerance/[place], Impulsive/Agitated Cognitive Cognitive: Intact: Cognitive, Attention/Concentration, Confused/Orientation, Insight/Awareness, Judgement/Problem-Solving, Memory Psychosocial Psychosocial: Intact: Psychosocial, Family/Other Adjustment, Realistic Expectation, Self-Esteem/Confidence Progress Notes/Response to Tx Contents of Sessions: Adjustment, Level of Consciousness Time with Patient: 15 minutes Premorbid psychological status Premorbid Cognitive, Emotional and Behavioral Status: Stable. The patient is in college and a brief work history prior to this injury. The patient has no prior psychiatric difficulties, as described above. Substance abuse history includes ETOH, which contributed to his injury. Behavioral Reactions of Patient and Family/Support System: Stable. The patient s family is experiencing ongoing issues of adjustment given the nature of the injury, and this aspect of recovery will require ongoing monitoring. Emotional/Behavioral Status of Patient and Family/Support System: Stable. Pertinent issues, if appropriate to this patients clinical care, are described in detail above. Maximizing acute care outcome It is recommended that the patient be monitored for emergent behavioral impulsivity as the medical condition evolves. At this point in the recovery process, the patient does have cognitive capacity as the patient is able to understand a situation and its likely consequences, and he is able to manipulate information rationally. Cognitive capacity will be assessed throughout the recovery process. Anticipated Problems Ongoing areas of concern will include behavioral impulsivity, lack of insight and judgment, which is expected to improve with time and treatment. Presently , the patient awake, alert and conversant. His alcohol use/abuse is concerning and should be addressed once medically stable and back at home through a counseling program. Treatment Plan This clinician will continue to follow with you throughout the course of this patients critical care treatment, and I will be available to meet with the patients family/support system to facilitate their understanding and the ongoing care of their family member. The goals of neuropsychological intervention shall be both educational and supportive to the family/support system as is deemed clinically appropriate. Impression This 22 year old male is s/p multitrauma from a balcony fall on 02/03/2018, resulting in rib fractures, radial and ulnar fractures and vertebral body fractures. Head CT was within normal limits. He was GCS of 8 at the scene, improved to 14 on arrival. Evaluation results reveal no demonstrable neurocognitive impairment, which would be consistent with an absence of neuropathology from his fall. Obviously, he is an extremely efrain young man who appears to have made a very poor choice. Emotionally, he appears without without depression, anxiety or characterological maladjustment. His substance abuse at such a young age needs to be addressed within counseling setting once he is medically stable. I am concerned that his alcohol abuse may be a bit greater than he leads one to believe, and he will be monitored for such in the ICU. Diagnosis: (1) Alcohol dependence in controlled environment Progress Note Narrative PTD 3. The patient is awake, alert and conversant. No neurobehavioral issues. Discussed clinical observations with Dr. Ayala yesterday, and our opinions concur concerning diagnosis and psychological treatment once he is discharged. I will follow. Todd Gonzalez PhD Feb 06, 2018 8:09 am
[2018-02-06 08:59] LABS: AUTOMATED NEUTROPHIL # 5.7 TH/MM3 (1.8-7.7); BASOPHIL % 0.3 % (0.0-2.0); EOSINOPHIL # 0.1 TH/MM3 (0-0.4); EOSINOPHIL % 0.8 % (0.0-4.0); HEMATOCRIT 36.6 % (39.0-51.0); HEMOGLOBIN 12.7 GM/DL (13.0-17.0); LYMPH % 23.5 % (9.0-44.0); LYMPHOCYTE # 2.1 TH/MM3 (1.0-4.8); MEAN CELL VOLUME 90.7 FL (80.0-100.0); MEAN CORPUSCULAR HEMOGLOBIN 31.5 PG (27.0-34.0); MEAN CORPUSCULAR HGB CONC 34.7 % (32.0-36.0); MEAN PLATELET VOLUME 8.9 FL (7.0-11.0); MONO % 11.3 % (0.0-8.0); NEUT % 64.1 % (16.0-70.0); PLATELET COUNT 183 TH/MM3 (150-450); RED BLOOD COUNT 4.03 MIL/MM3 (4.50-5.90); RED CELL DISTRIBUTION WIDTH 13.6 % (11.6-17.2); WHITE BLOOD COUNT 8.8 TH/MM3 (4.0-11.0)
[2018-02-06 09:03] LABS: INTERNATIONAL NORMALIZED RATIO 0.9 RATIO; PROTHROMBIN TIME - PATIENT 9.6 SEC (9.8-11.6)
[2018-02-06] MEDS: DOCUSATE SODIUM 50 MG/SENNA 8.6 MG TAB PO SCH ×2 (09:15→21:30)
[2018-02-06 09:16] LABS: ALBUMIN 3.1 GM/DL (3.4-5.0); ALKALINE PHOSPHATASE 77 U/L (45-117); ALT (GPT) 52 U/L (9-52); AST (GOT) 61 U/L (15-39); BICARBONATE 24.7 MEQ/L (21.0-32.0); BLOOD UREA NITROGEN 13 MG/DL (7-18); CALCIUM 8.7 MG/DL (8.5-10.1); CHLORIDE 101 MEQ/L (98-107); CREATININE 0.77 MG/DL (0.60-1.30); GLOMERULAR FILTRATION RATE 129 ML/MIN (>89); GLUCOSE,RANDOM 95 MG/DL (74-106); SODIUM (NA) 135 MEQ/L (136-145); TOTAL BILIRUBIN ADULT 0.7 MG/DL (0.2-1.0); TOTAL PROTEIN 7.6 GM/DL (6.4-8.2)
[2018-02-06] MEDS: ENOXAPARIN SODIUM 30 MG/0.3 ML SYRINGE SQ SCH ×3 (10:00→22:00)
[2018-02-06] MEDS ORDERED: PROPOFOL 500 MG/50 ML INJ 0 ML ONE (11:10)
[2018-02-06] MEDS ORDERED: HYDROmorphone HCL PF 2 MG/ML VIAL ONE (11:10)
[2018-02-06] MEDS ORDERED: ACETAMINOPHEN 1000 MG/100 ML 100 ML IV ONE (11:10)
[2018-02-06] MEDS ORDERED: LIDOCAINE 1%/EPINEPHrine 1:100,000 SOLN 30 ML VIAL ONE (11:41)
[2018-02-06] MEDS ORDERED: GELFOAM SIZE 100 ONE (11:41)
[2018-02-06] MEDS ORDERED: ceFAZolin INJ 1,000 MG VIAL ONE (11:41)
[2018-02-06] MEDS ORDERED: GENTAMICIN SULFATE 80 MG/2 ML VIAL ONE (11:41)
[2018-02-06] MEDS ORDERED: THROMBIN (TOPICAL) 5,000 UNIT VIAL ONE (11:41)
[2018-02-06] MEDS ORDERED: SODIUM CHLORIDE 0.9% 20 ML VIAL IV ONE (12:00)
[2018-02-06] MEDS ORDERED: LIDOCAINE HCL 1% PF 5 ML SYRINGE OTHER ONE (12:00)
[2018-02-06] MEDS ORDERED: ROCURONIUM INJ 50 MG/5 ML SYRINGE IV PUSH ONE (12:00)
[2018-02-06] MEDS ORDERED: ONDANSETRON HCL 4 MG/2 ML VIAL IV ONE (12:00)
[2018-02-06] MEDS ORDERED: LACTATED RINGER'S 1000 ML INJ 1,000 ML IV ONE (12:00)
[2018-02-06] MEDS ORDERED: PROPOFOL 200 MG/20 ML AMP IV ONE (12:00)
[2018-02-06] MEDS ORDERED: DEXAMETHASONE SOD PHOS 4 MG/ML VIAL IV ONE (12:00)
[2018-02-06] MEDS ORDERED: BUPIVACAINE LIPOSOME PF 1.3% 20 ML VIAL ONE (12:09)
--- NOTE | 2018-02-06 12:11 | HHI.PYPN ---
Subjective Remarks The patient was seen today for psychiatric reevaluation. Patient is a little bit anxious because today he has surgery. He reports that he is positive and optimistic about the results of the surgery and the final outcome of this hospitalization. Patient reports occasional mood, denies anhedonia, denies hopelessness, denies helplessness, denies worthlessness. Patient states that he is already focused and getting better, going back home, going back to college. He says that he understands he is going to be a process that at times can be difficult. He also verbalizes his plan of avoiding drugs and alcohol in the future to avoid a similar situation. He denies suicidal and homicidal ideation, he denies visual and auditory hallucinations. The patient is oriented 3, without any attention deficit, no fluctuation of consciousness. Review of Systems Except as stated in HPI: all other systems reviewed are Neg Mental Status Examination Appearance: Appropriate Consciousness: Alert Orientation: x4 Motor Activity: Normal gait Speech: Unremarkable Language: Adequate Fund of Knowledge: Adequate Attention and Concentration: Adequate Memory: Unremarkable Mood: Appropriate Affect: Appropriate Thought Process & Associations: Intact Thought Content: Appropriate Hallucination Type: None Delusion Type: None Suicidal Ideation: No Suicidal Plan: No Suicidal Intention: No Homicidal Ideation: No Homicidal Plan: No Homicidal Intention: No Insight: Adequate Judgment: Adequate Results Labs Test 02/06/18 08:34 White Blood Count 8.8 TH/MM3 Red Blood Count 4.03 MIL/MM3 Hemoglobin 12.7 GM/DL Hematocrit 36.6 % Mean Corpuscular Volume 90.7 FL Mean Corpuscular Hemoglobin 31.5 PG Mean Corpuscular Hemoglobin Concent 34.7 % Red Cell Distribution Width 13.6 % Platelet Count 183 TH/MM3 Mean Platelet Volume 8.9 FL Neutrophils (%) (Auto) 64.1 % Lymphocytes (%) (Auto) 23.5 % Monocytes (%) (Auto) 11.3 % Eosinophils (%) (Auto) 0.8 % Basophils (%) (Auto) 0.3 % Neutrophils # (Auto) 5.7 TH/MM3 Lymphocytes # (Auto) 2.1 TH/MM3 Monocytes # (Auto) 1.0 TH/MM3 Eosinophils # (Auto) 0.1 TH/MM3 Basophils # (Auto) 0.0 TH/MM3 CBC Comment DIFF FINAL Differential Comment Prothrombin Time 9.6 SEC Prothromb Time International Ratio 0.9 RATIO Activated Partial Thromboplast Time 24.0 SEC Blood Urea Nitrogen 13 MG/DL Creatinine 0.77 MG/DL Random Glucose 95 MG/DL Total Protein 7.6 GM/DL Albumin 3.1 GM/DL Calcium Level 8.7 MG/DL Alkaline Phosphatase 77 U/L Aspartate Amino Transf (AST/SGOT) 61 U/L Alanine Aminotransferase (ALT/SGPT) 52 U/L Total Bilirubin 0.7 MG/DL Sodium Level 135 MEQ/L Potassium Level 3.9 MEQ/L Chloride Level 101 MEQ/L Carbon Dioxide Level 24.7 MEQ/L Anion Gap 9 MEQ/L Estimat Glomerular Filtration Rate 129 ML/MIN Vitals/IOs Vital Signs Date Time Temp Pulse Resp B/P (MAP) Pulse Ox O2 Delivery O2 Flow Rate FiO2 02/06/18 09:51 98.1 84 14 142/90 (107) 97 02/06/18 09:51 Room Air 02/05/18 20:44 21 02/04/18 19:45 2 Intake and Output 02/06/18 02/06/18 02/07/18 08:00 16:00 00:00 Intake Total 240 ml Output Total 900 ml Balance -660 ml Assessment & Plan Problem List: (1) Substance induced mood disorder ICD Codes: F19.94 - Other psychoactive substance use, unspecified with psychoactive substance-induced mood disorder Assessment & Plan: The patient does not present any acute symptomatology of depression, anxiety, marii or psychosis. He denies suicidal and homicidal ideation, he denies visual and auditory hallucinations. I had a conversation yesterday with his father and his mother and they are both in agreement with lifting the Miramontes at and not admitted the patient in psychiatry. They compromised to take the patient back home to make sure that he is safe. Brief supportive psychotherapy was provided today to the patient, also motivation and psychoeducation. No psychotropics recommended at this moment. Assessment & Plan Estimated LOS: days Justification for Cont. Inpt. No psychiatric admission indicated at this moment. Miramontes act will be lifted Enrique Ayala MD Feb 06, 2018 12:11
--- NOTE | 2018-02-06 13:49 | HHI.CCPN ---
Subjective Brief History [place]: This is a 22-year-old male who was out with friend last night at a local club. The patient does not remember anything past that. We are told he either jumped or fell from his sixth story balcony, and landed on the third floor. INJURIES: Sternum fx LEFT rib fx (1,2) L2 transverse process fx L3 vertebral body fx LEFT radius/ulna fx LEFT triquetrum carpal bone RIGHT carpus/wrist dislocation 24 Hour Review/Hospital Course 02/03/2018 PTD: 0 Patient lying in bed. No distress noted. Bilateral arms in splint and wrapped with Fabio bandage. Patient is able to move all extremities well and to command. He does complain of tingling in his right hand. Additionally, patient complains of pain in his back. 3 Patient remained stable He is neurologically intact Undergoing MRI lumbar spine Plan will be decided by neurosurgery according to this 02/05 Patient is stable from general trauma standpoint Preop for lumbar fixation with the neurosurgical Orthopedic and hand surgery inputs appreciated npo after MN February 06 Continues to be stable from general trauma standpoint Is going to the OR with Dr. Tyson for his lumbar spine fixation His pain medication was adjusted according to his needs He has been n.p.o. after midnight Orthopedic and hand surgery plans were appreciated Transfer to regular floor postop Mother was updated at the bedside Objective Vital Signs Date Time Temp Pulse Resp B/P (MAP) Pulse Ox O2 Delivery O2 Flow Rate FiO2 02/06/18 09:51 98.1 84 14 142/90 (107) 97 02/06/18 09:51 Room Air 02/05/18 20:44 21 02/04/18 19:45 2 Intake and Output 02/06/18 02/06/18 02/07/18 08:00 16:00 00:00 Intake Total 240 ml Output Total 900 ml Balance -660 ml Result Diagram: 02/06/18 0834 02/06/18 0834 Imaging Last 24 hours Impressions Chest X-Ray 02/06/18 0600 Signed Impressions: Service Date/Time: January 05:02 - CONCLUSION: 1. No active disease. Cardiomegaly. Amando Fuentes MD Exam BLOW MOLD TECHNICIAN g coma score 15 Hemodynamic/Cardiac Stable Pulmonary/Respiratory Clear bilateral Abdomen/GI Nutrition Soft Urinary Catheter Assessment Urinary Catheter: Yes Date of Insertion: Feb 03, 2018 Vascular Central Line Catheter Vascular Central Line Catheter: No Assessment and Plan Assessment: (1) Sternum fx ICD Code: S22.20XA - Unspecified fracture of sternum, initial encounter for closed fracture Status: Acute (2) Left rib fracture ICD Code: S22.32XA - Fracture of one rib, left side, initial encounter for closed fracture Status: Acute (3) Fracture of L2 vertebra ICD Code: S32.029A - Unspecified fracture of second lumbar vertebra, initial encounter for closed fracture (4) L3 vertebral fracture ICD Code: S32.039A - Unspecified fracture of third lumbar vertebra, initial encounter for closed fracture Status: Acute (5) Closed fracture of head of left ulna ICD Code: S52.602A - Unspecified fracture of lower end of left ulna, initial encounter for closed fracture Status: Acute (6) Dislocation of right wrist ICD Code: S63.004A - Unspecified dislocation of right wrist and hand, initial encounter Status: Acute Plan [place]: This is a 22-year-old male who was out at a club. Returned home. Fell/jumped from a 6 story balcony and landed on the third floor. INJURIES: Sternum fx LEFT rib fx (1,2) L2 transverse process fx L3 vertebral body fx LEFT radius/ulna fx LEFT triquetrum carpal bone RIGHT carpus/wrist dislocation Procedures: Consults: Neurosurgery. Orthopedics. Case management. Diet: NPO Pulmonary: Encourage good pulmonary toileting. IS and acapella at bedside and pt encouraged to use. Rationale for use explained to patient, and verbalized understanding. Duo nebs. PAIN Management: [place] 5-10 mg q 4h. Morphine 2 mg q 3h. Robaxin 500 mg q 8h. Lidocaine patch Activity: BR. PT and OT ordered. Log roll only GI prophylaxis: Protonix IV Bowel regimen: Colace and MOM. LBM: 0 DVT prophylaxis: Mechanical VTE with SCDs. Chemical management TBD. DC Planning: Case management consulted for assistance with final discharge disposition. Emotional support provided to patient and family at bedside and plan of care discussed. Discussed with OVERLOCK COLLAR SETTER at bedside during trauma rounds. Discussed pt condition and plan of care with collaborating trauma surgeon. Patient is currently managed in the trauma ICU.. The trauma team will round each day, and evaluate plan of care on a daily basis. Assessment and Plan 02/04; continue pain control Discuss chemical DVT prophylaxis with neurosurgeon Follow-up MRI results Transfer floor Continue spinal precautions 02/05 Continue pain control Psych input appreciated patient's is for now on Miramontes act DVT prophylaxis Keep in ICU until postop February 06 Miramontes acted been lifted by psychiatric continue current care transfer to floor in 24 hours post Problem Qualifiers (1) Sternum fx: Qualified Codes: S22.20XA - Unspecified fracture of sternum, initial encounter for closed fracture (2) Left rib fracture: Qualified Codes: S22.42XA - Multiple fractures of ribs, left side, initial encounter for closed fracture (3) Fracture of L2 vertebra: Qualified Codes: S32.029A - Unspecified fracture of second lumbar vertebra, initial encounter for closed fracture (4) L3 vertebral fracture: Qualified Codes: S32.039A - Unspecified fracture of third lumbar vertebra, initial encounter for closed fracture (5) Closed fracture of head of left ulna: Qualified Codes: S52.602A - Unspecified fracture of lower end of left ulna, initial encounter for closed fracture (6) Dislocation of right wrist: Qualified Codes: S63.004A - Unspecified dislocation of right wrist and hand, initial encounter Ellie Finch MD Feb 06, 2018 13:49
[2018-02-06] MEDS ORDERED: BUPIVACAINE LIPOSOME PF 1.3% 20 ML VIAL INFIL ONE (14:35)
[2018-02-06] MEDS ORDERED: DO NOT ADM ANY ANTICOAGULANT DRUGS PRN (16:19)
--- NOTE | 2018-02-06 16:27 | RADRPT ---
EXAM DATE/TIME: 02/06/2018 12:51 [facility] COMPARISON: No previous studies available for comparison. INDICATIONS : Post hardware placement L-2 l-3 MEDICAL HISTORY : Lumbar fracture SURGICAL HISTORY : None. ENCOUNTER: Initial ACUITY: 4 - 6 days PAIN SCORE: Non-responsive. LOCATION: Lumbar spine FINDINGS: Posterior lumbar hardware fusion is present with hardware present at L2-3. The hardware appears intac t. Alignment is anatomic. CONCLUSION: Satisfactory operative appearance David Martin MD on February 06, 2018 at 16:24 Board Certified Radiologist. This report was verified electronically.
[2018-02-06] MEDS ORDERED: MIDAZOLAM HCL 2 MG/2 ML VIAL ONE (16:31)
[2018-02-06] MEDS ORDERED: TETRACAINE 0.5% OPTH SOLN 2 ML BTL ONE (17:09)
[2018-02-06] MEDS ORDERED: ERYTHROMYCIN 0.5% OPTH OINT 1 GM TUBO ONE (17:10)
[2018-02-06] MEDS ORDERED: *morphine SULFATE 4 MG/ML PERIprocedure ONLY ONE ×2 (17:26→17:42)
--- NOTE | 2018-02-06 17:33 | PD.OP ---
Operative Report Date of Surgery: Feb 06, 2018 Preoperative Diagnosis: (1) L3 vertebral fracture 1. L2-L3 fracture dislocation Postoperative Diagnosis: (1) L3 vertebral fracture 1. L2-L3 fracture dislocation 2. Lumbar posttraumatic epidural hematoma Procedure: 1. Left L2-3 semi-laminectomy, evacuation epidural hematoma 2. Bilateral L2-L3 posterior lateral fusion, local autograft bone, cancellus bone chips, demineralized bone matrix. 3. Bilateral L2-L3 posterior instrumentation with pedicle screw fixation. Anesthesia: Gen. Surgeon: Daniel Tyson Milliner Helper(s): Meli Raphael Operation and Findings: Findings: Bilateral fracture through the facet-pedicle junction. Moderate epidural hematoma. Significant myofascial contusion and hematoma. Procedure in detail: The patient was brought into the operating room and general endotracheal anesthesia induced without difficulty. ARIELLE hose and sequential compression devices were placed. The Orellana catheter was placed. Lines were established by anesthesia. Leads for intraoperative neuro monitoring were placed and a baseline study obtained. The patient was positioned on the concentric Ramón table with the side bolsters and all extremities appropriately padded. Appropriate time-out procedure was performed with all personnel present and in agreement. 1% Xylocaine with epinephrine was used for local infiltration over the incision site which was made at the midline L2-L3 level. The incision was carried sharply down to the lumbodorsal fascia which was incised adjacent to the spinous processes. Stanford elevator was used for subperiosteal elevation of paraspinous musculature and fascia away from the lamina and spinous process. The paraspinous musculature and fascia was noted to be severely injured with total disruption of the L2-L3 interspinous ligament and significant bleeding and contusion in the paraspinous muscle and fascia. The deep self-retaining retractor was placed. The appropriate levels were verified with intraoperative C-arm. Microscope was moved into place and used for the remainder of the procedure including the closure. At the L2-L3 level on the left side, the TPS drill with a 5 mm bone bur was used to remove the inferior two thirds of the more cephalad lamina and the superior aspect of the more caudal lamina along with a moderate amount of the bilateral medial facet, taking care not to disrupt the integrity of the facet or pars intra-articularis. The partially disrupted ligamentum flavum was elevated away from the thecal sac with the thin ligament dissector and resected with the 15 blade knife and the Kerrison rongeur out to the level of the deep lateral recess to completely decompress the thecal sac and exiting nerve roots. A moderate epidural hematoma was encountered and evacuated with chills suction and irrigation. The exiting nerve root was followed to the level of the medial pedicle to ensure that it was well decompressed. No spinal fluid leakage was encountered. The disc and annulus was visualized to make sure that there was no significant disc displacement or herniation. There was mild to moderate bulging of the disc and annulus, but no definite disc herniation. This did not appear to cause significant compression on the thecal sac or exiting nerve root. It was elected not to perform a discectomy. Bleeding was carefully controlled with the bipolar forceps. Bilateral L2 and L3 facet and transverse process was exposed. The fracture extending through the junction of the superior facet and pedicle at the bilateral L3 level was delineated. The bilateral L2-3 facet was significantly disrupted with a torn facet capsule and a relatively unstable facet. Using AP and lateral C-arm imaging as well as anatomic landmarks, the entry point to the bilateral L2 and L3 pedicle was determined and the entry point decorticated with the TPS drill with a 5 mm bone bur. The small and then medium pedicle finder was then used to probe the pedicle into the vertebral body at the bilateral L2 and L3 level followed by tapping with the 4 mm tap and then probing with the ball-tip probe to ensure no breakout along the pedicle. The appropriate size 4.5 mm spine wave pedicle screw was then placed at the bilateral L2 and L3 level and placement checked with intraoperative C-arm as well as intraoperative EMG monitoring. The appropriate length mercedes was then secured to the bilateral L2-L3 pedicle screws and secured with the locking caps and the torque wrench and antitorque device under mild compression. The region was well irrigated with antibiotic irrigation. TPS drill with a 5 mm bone bur was used to deeply decorticate the posterolateral structures at the bilateral L2 and L3 level including the bilateral L2-3 facet. Shavings were left in place for bone graft to which was added a mixture of cancellus bone chips and demineralized bone matrix which was packed firmly into the posterior lateral decorticated structures at the bilateral L2-L3 level. A 10 mm flat fluted drain was left in place at the operative site and brought out through an incision in the mid lumbar region and secured to the skin with nylon suture and attached to a bulb suction. The closure was performed with 0 Vicryl interrupted for the deep and superficial fascia, with 3-0 Vicryl interrupted subcutaneous closure, and 4-0 Vicryl running subcuticular closure. A dressing of sterile Mastisol, Steri- Strips, and Primapore was placed. The patient was taken to recovery room in stable condition. All counts were correct at the end of the case. Estimated blood loss was 250 cc. No specimen was sent to pathology Intraoperative neuro monitoring remained stable during the procedure. Daniel Tyson MD Feb 06, 2018 17:33
[2018-02-06] MEDS: REMOVE OLD LIDOCAINE PATCH T-DERMAL SCH (21:00)
[2018-02-06] MEDS ORDERED: TETRACAINE 0.5% OPTH SOLN 4 ML BTL LEFT EYE ONE (22:00)
[2018-02-06] MEDS ORDERED: ERYTHROMYCIN 0.5% OPTH OINT 3.5 GM TUBO LEFT EYE ONE (22:00)
[2018-02-07] VITALS (8 sets, daily range): BP systolic 124–148; BP diastolic 65–79; PULSE 76–94; RESP 15–22; TEMP 97.9–99.3; O2SAT 94–99
[2018-02-07] MEDS: MORPHINE SULFATE 4 MG/ML INJ IV PUSH PRN ×4 (02:00→12:22)
[2018-02-07] MEDS: ONDANSETRON HCL 4 MG/2 ML VIAL IV PUSH PRN ×4 (02:00→15:36)
[2018-02-07] MEDS: CHLORHEXIDINE GLUCONATE 2 % 1 PACK (2 CLOTHS) TOP SCH (04:00)
[2018-02-07] MEDS: ACETAMINOPHEN/HYDROcodone 325 MG/10 MG TAB PO PRN ×5 (04:14→22:54)
[2018-02-07] MEDS: METHOCARBAMOL 500 MG TAB PO SCH ×3 (05:23→21:27)
--- NOTE | 2018-02-07 07:58 | HHI.PR ---
Neuropsych Behavior Behavior: Intact: Coping/Acceptance, Cooperative w/ Treatment, Motivation, Frustration Tolerance/[place], Impulsive/Agitated Cognitive Cognitive: Intact: Cognitive, Attention/Concentration, Confused/Orientation, Insight/Awareness, Judgement/Problem-Solving, Memory Psychosocial Psychosocial: Intact: Psychosocial, Family/Other Adjustment, Realistic Expectation, Self-Esteem/Confidence Progress Notes/Response to Tx Contents of Sessions: Adjustment, Level of Consciousness Time with Patient: 15 minutes Premorbid psychological status Premorbid Cognitive, Emotional and Behavioral Status: Stable. The patient is in college and a brief work history prior to this injury. The patient has no prior psychiatric difficulties, as described above. Substance abuse history includes ETOH, which contributed to his injury. Behavioral Reactions of Patient and Family/Support System: Stable. The patient s family is experiencing ongoing issues of adjustment given the nature of the injury, and this aspect of recovery will require ongoing monitoring. Emotional/Behavioral Status of Patient and Family/Support System: Stable. Pertinent issues, if appropriate to this patients clinical care, are described in detail above. Maximizing acute care outcome It is recommended that the patient be monitored for emergent behavioral impulsivity as the medical condition evolves. At this point in the recovery process, the patient does have cognitive capacity as the patient is able to understand a situation and its likely consequences, and he is able to manipulate information rationally. Cognitive capacity will be assessed throughout the recovery process. Anticipated Problems Ongoing areas of concern will include behavioral impulsivity, lack of insight and judgment, which is expected to improve with time and treatment. Presently , the patient awake, alert and conversant. His alcohol use/abuse is concerning and should be addressed once medically stable and back at home through a counseling program. Treatment Plan This clinician will continue to follow with you throughout the course of this patients critical care treatment, and I will be available to meet with the patients family/support system to facilitate their understanding and the ongoing care of their family member. The goals of neuropsychological intervention shall be both educational and supportive to the family/support system as is deemed clinically appropriate. Impression This 22 year old male is s/p multitrauma from a balcony fall on 02/03/2018, resulting in rib fractures, radial and ulnar fractures and vertebral body fractures. Head CT was within normal limits. He was GCS of 8 at the scene, improved to 14 on arrival. Evaluation results reveal no demonstrable neurocognitive impairment, which would be consistent with an absence of neuropathology from his fall. Obviously, he is an extremely efrain young man who appears to have made a very poor choice. Emotionally, he appears without without depression, anxiety or characterological maladjustment. His substance abuse at such a young age needs to be addressed within counseling setting once he is medically stable. I am concerned that his alcohol abuse may be a bit greater than he leads one to believe, and he will be monitored for such in the ICU. Diagnosis: (1) Alcohol dependence in controlled environment Progress Note Narrative PTD 4. The patient is neurobehaviorally stable. Follow-up with psychiatry with no medication recommendations. Miramontes Act lifted. I will follow. Todd Gonzalez PhD Feb 07, 2018 7:57 am
--- NOTE | 2018-02-07 08:04 | PD.ORT.PN ---
Subjective Subjective Remarks POD 3 s/p ORIF left BBFA doing well. pain controlled. states sore but controlled. reports right ankle pain is improving. Objective Vitals Vital Signs Date Time Temp Pulse Resp B/P (MAP) Pulse Ox O2 Delivery O2 Flow Rate FiO2 02/07/18 06:00 78 02/07/18 04:00 76 02/07/18 04:00 98.2 76 21 128/65 (86) 96 02/07/18 02:00 85 02/07/18 00:00 99.3 89 22 144/72 (96) 96 02/07/18 00:00 89 02/06/18 22:00 92 02/06/18 20:00 92 02/06/18 20:00 98.3 80 17 155/78 (103) 96 02/06/18 19:00 97 Nasal Cannula 2.00 02/06/18 18:00 94 02/06/18 17:45 98.1 92 21 143/90 (107) 96 02/06/18 17:45 96 Nasal Cannula 2.00 02/06/18 17:30 98.8 92 16 148/75 (99) 96 Nasal Cannula 2 02/06/18 17:15 95 16 144/76 (98) 96 Nasal Cannula 2 02/06/18 17:00 103 16 152/76 (101) 97 Nasal Cannula 2 02/06/18 16:45 104 17 143/73 (96) 96 Nasal Cannula 2 02/06/18 16:30 105 17 142/73 (96) 97 Nasal Cannula 2 02/06/18 16:19 99.8 103 14 138/72 (94) 98 Nasal Cannula 2 02/06/18 09:51 98.1 84 14 142/90 (107) 97 02/06/18 09:51 97 Room Air I/O 02/06/18 02/06/18 02/06/18 02/07/18 02/07/18 02/07/18 07:00 15:00 23:00 07:00 15:00 23:00 Intake Total 240 ml 1600 ml 30 ml Output Total 900 ml 1025 ml 1340 ml Balance -660 ml 575 ml -1310 ml Intake Oral 240 ml 0 ml 30 ml Other 1600 ml Output Urine Total 900 ml 750 ml 1325 ml Drainage Total 25 ml 15 ml Estimated Blood Loss 250 ml # Bowel Movements 0 0 0 Result Diagram: 02/06/18 0834 02/06/18 0834 Other Results Laboratory Tests Test 02/06/18 08:34 Prothromb Time International Ratio 0.9 RATIO Prothrombin Time 9.6 SEC (9.8-11.6) Imaging Last 24 hours Impressions Chest X-Ray 02/04/18 0600 Signed Impressions: Service Date/Time: Sunday, February 04, 2018 04:25 - CONCLUSION: No acute disease. Shelton Dunham MD Lumbar Spine MRI 02/04/18 0000 Signed Impressions: Service Date/Time: Sunday, February 04, 2018 09:54 - CONCLUSION: 1. At L3 there is a mild compression fracture through the superior endplate with a broad- based moderate-sized posterior traumatic disc herniation resulting in moderate AP canal and lateral recess stenosis. 2. Probable contusion or nondisplaced fracture L2 with marrow edema present. 3. Abnormal T2 signal in the interspinous ligament between L2 and L3 which could represent a ligamentous injury. There is also a fracture extending through the posterior elements of L3 at the superior aspect of the spinous process. 4. The conus medullaris appears intact. Amando Fuentes MD Objective Remarks LUE: dressings clean and dry. intact. NVI with good motion of fingers RUE: +splint. Assessment & Plan Assessment and Plan 1) Left Radius/Ulna Shaft Fxs s/p ORIF - POD 3 2) Right Perilunate Dislocation of wrist s/p ORIF - POD 3 (Dr. Vo) -NWB BUE -daily dressing changes to left forearm POD 2 -work on ROM of wrist and fingers -hand surgery to manage right wrist -plan for DC home when stable -right ankle xrays reviewed and negative. -f/u with Nick or PA in 2 weeks Tam Allred/Chair Car Attendant PA Feb 07, 2018 08:04
[2018-02-07] MEDS ORDERED: HYDR-3583 PO (08:06)
[2018-02-07] MEDS: SODIUM CHLORIDE FLUSH BID IV FLUSH SCH ×2 (09:00→21:27)
--- NOTE | 2018-02-07 09:39 | HHI.NSPN ---
(J Carlos Sauer) History Chief Complaint: Back is sore (J Carlos Sauer) Interval History 02/03: Patient states that he was at [facility] with friends which is the last thing he remembers. The next thing he remembers is waking up in the bed in the [facility] unit. He does have some pain to the lower back and the neck. He denies any numbness or tingling to the extremities except for the fingertips. Mechanism unknown. 02/04: It is now known that the patient fell from a balcony onto another one. The patient is awake and alert when seen this morning. His family is at the bedside. He complains of low back pain. He denies any pain to the neck. He denies any numbness or tingling to the extremities. He does have pain to both upper extremities secondary to his injuries. He denies any headache, dizziness or nausea. No change is noted in his neuro exam. He is to go to surgery today for the upper extremity injuries. 02/05: The patient went for surgery yesterday for open reduction and internal fixation of his right wrist dislocation by Hand Surgery and the left radial and ulnar fractures by Orthopaedic Surgery. He returned to [facility] for further care and monitoring post-operatively. This morning the patient is awake and alert in the bed. He states he has pain at the surgical sites to the upper extremities. He does endorse soreness to the lower back. He has some numbness and tingling to the digits of both hands. Otherwise he has no other pain, numbness or tingling to the extremities. He denies any headache or dizziness. There is no change in his examination. 02/06: Patient went to the operating room to have a left L2-3 semi-laminectomy with evacuation of an epidural hematoma followed by a bilateral L2-L3 posterior lateral fusion and posterior instrumentation with pedicle screw fixation. Post- operatively the patient returned to [facility] for further care and management. 02/07: When seen this morning the patient is awake and alert, talking on the telephone and visiting with his mother. He says his back is "a little sore." He also has some pain to the upper extremities at the surgical sites. The numbness has improved to the hands with some still to the left hand but better. He denies any headache or dizziness. He has no pain, numbness or tingling to the lower extremities. He is neurologically intact to the lower extremities upon examination. (J Carlos Sauer) Exam Results 02/05/18 02/05/18 02/06/18 02/06/18 02/07/18 02/07/18 06:00 18:00 06:00 18:00 06:00 18:00 Intake Total 420 ml 1169.2 ml 240 ml 1600 ml 30 ml Output Total 3650 ml 1900 ml 900 ml 1025 ml 1340 ml Balance -3230 ml -730.8 ml -660 ml 575 ml -1310 ml Intake Oral 420 ml 600 ml 240 ml 0 ml 30 ml IV Total 569.2 ml Other 1600 ml Output Urine Total 3650 ml 1900 ml 900 ml 750 ml 1325 ml Stool Total 0 ml Drainage Total 25 ml 15 ml Estimated Blood Loss 250 ml # Bowel Movements 0 0 0 0 Vital Signs Date Time Temp Pulse Resp B/P (MAP) Pulse Ox O2 Delivery O2 Flow Rate FiO2 02/07/18 06:00 78 02/07/18 04:00 76 02/07/18 04:00 98.2 76 21 128/65 (86) 96 02/07/18 02:00 85 02/07/18 00:00 99.3 89 22 144/72 (96) 96 02/07/18 00:00 89 02/06/18 22:00 92 02/06/18 20:00 92 02/06/18 20:00 98.3 80 17 155/78 (103) 96 02/06/18 19:00 97 Nasal Cannula 2.00 02/06/18 18:00 94 02/06/18 17:45 98.1 92 21 143/90 (107) 96 02/06/18 17:45 96 Nasal Cannula 2.00 02/06/18 17:30 98.8 92 16 148/75 (99) 96 Nasal Cannula 2 02/06/18 17:15 95 16 144/76 (98) 96 Nasal Cannula 2 02/06/18 17:00 103 16 152/76 (101) 97 Nasal Cannula 2 02/06/18 16:45 104 17 143/73 (96) 96 Nasal Cannula 2 02/06/18 16:30 105 17 142/73 (96) 97 Nasal Cannula 2 02/06/18 16:19 99.8 103 14 138/72 (94) 98 Nasal Cannula 2 02/06/18 09:51 98.1 84 14 142/90 (107) 97 02/06/18 09:51 97 Room Air 02/06/18 08:00 79 02/06/18 08:00 98.4 80 17 139/83 (101) 95 02/06/18 07:00 95 Room Air 02/06/18 06:00 88 02/06/18 04:00 97.7 76 20 131/78 (95) 97 02/06/18 04:00 77 02/06/18 02:00 86 02/06/18 00:00 98.6 92 20 146/71 (96) 95 02/06/18 00:00 92 02/05/18 22:00 92 02/05/18 20:44 98 21 02/05/18 20:00 96 Room Air 02/05/18 20:00 98.4 88 20 144/72 (96) 95 02/05/18 20:00 88 02/05/18 18:00 91 02/05/18 16:00 98.2 86 17 152/74 (100) 95 02/05/18 16:00 86 02/05/18 14:00 90 02/05/18 12:00 98.0 75 15 155/79 (104) 96 02/05/18 12:00 75 02/05/18 10:00 70 02/05/18 08:34 96 21 02/05/18 08:00 79 02/05/18 08:00 98.7 68 15 151/71 (97) 96 02/05/18 07:40 12 02/05/18 07:00 93 Room Air 02/05/18 06:00 67 02/05/18 04:00 67 02/05/18 04:00 97.7 76 29 141/70 (93) 93 02/05/18 02:00 71 02/05/18 00:00 98.1 70 14 145/67 (93) 98 02/05/18 00:00 78 02/04/18 22:00 78 02/04/18 21:31 98 02/04/18 20:30 83 16 173/71 (105) 95 Room Air 02/04/18 20:15 80 16 147/65 (92) 93 Room Air 02/04/18 20:00 70 16 176/73 (107) 93 Room Air 02/04/18 20:00 98.7 68 12 149/68 (95) 94 02/04/18 20:00 75 02/04/18 19:45 80 16 173/76 (108) 94 Nasal Cannula 2 02/04/18 19:30 77 16 170/81 (110) 96 Nasal Cannula 2 02/04/18 19:15 78 16 146/72 (96) 96 Nasal Cannula 2 02/04/18 19:00 70 16 159/72 (101) 96 Nasal Cannula 2 02/04/18 18:45 70 16 176/85 (115) 96 Nasal Cannula 2 02/04/18 18:30 75 16 170/87 (114) 96 Nasal Cannula 2 02/04/18 18:15 75 16 175/84 (114) 96 Nasal Cannula 2 02/04/18 18:00 73 16 188/87 (120) 97 Nasal Cannula 2 02/04/18 17:45 70 16 188/90 (122) 99 Nasal Cannula 2 02/04/18 17:30 78 16 180/84 (116) 98 Nasal Cannula 2 02/04/18 17:15 76 16 152/76 (101) 98 Nasal Cannula 2 02/04/18 17:09 97.6 79 16 165/83 (110) 98 Nasal Cannula 2 02/04/18 13:55 97.9 72 14 154/76 (102) 95 02/04/18 12:00 84 02/04/18 12:00 98.5 82 17 146/75 (98) 97 02/04/18 11:34 12 02/04/18 10:26 14 02/04/18 10:00 88 (J Carlos Sauer) Physical Examination GENERAL: Awake & alert in bed, visting w/mother & talking on the phone. Affect normal, readily interacts. No apparent distress. HEENT: Normocephalic, atraumatic. MUSCULOSKELETAL: Bilateral forearms in splints. Bilateral arms & lower extremities NTTP. Moves digits of both hands w/o difficulty. Moves BLE w/o any difficulty. Midline lumbar spine moderately TTP, PAU drain to bulb suction w/ essentially serous drainage. NEUROLOGICAL: AAOx3. Speech clear & appropriate. Follows simple commands w/o difficulty. Sensation decreased to left hand but improved from yesterday, o/w intact to light touch to all extremities. Unable to asses motor strength of BUE due to injuries but does move digits of both hands without difficulty. Motor strength of BLE is 5/5 to all major flexion & extension muscle groups. (J Carlos Sauer) Lab, Micro, Other Results Recent Impressions Chest X-Ray 02/06/18 0600 Signed Impressions: Service Date/Time: January 05:02 - CONCLUSION: 1. No active disease. Cardiomegaly. Amando Fuentes MD Lumbar Spine X-Ray 02/06/18 0000 Signed Impressions: Service Date/Time: January 12:51 - CONCLUSION: Satisfactory operative appearance David Martin MD Chest X-Ray 02/05/18 0600 Signed Impressions: Service Date/Time: Monday, February 05, 2018 05:04 - CONCLUSION: No acute disease. Shelton Dunham MD Laboratory Tests Test 02/06/18 08:34 White Blood Count 8.8 TH/MM3 Red Blood Count 4.03 MIL/MM3 Hemoglobin 12.7 GM/DL Hematocrit 36.6 % Mean Corpuscular Volume 90.7 FL Mean Corpuscular Hemoglobin 31.5 PG Mean Corpuscular Hemoglobin Concent 34.7 % Red Cell Distribution Width 13.6 % Platelet Count 183 TH/MM3 Mean Platelet Volume 8.9 FL Neutrophils (%) (Auto) 64.1 % Lymphocytes (%) (Auto) 23.5 % Monocytes (%) (Auto) 11.3 % Eosinophils (%) (Auto) 0.8 % Basophils (%) (Auto) 0.3 % Neutrophils # (Auto) 5.7 TH/MM3 Lymphocytes # (Auto) 2.1 TH/MM3 Monocytes # (Auto) 1.0 TH/MM3 Eosinophils # (Auto) 0.1 TH/MM3 Basophils # (Auto) 0.0 TH/MM3 CBC Comment DIFF FINAL Differential Comment Prothrombin Time 9.6 SEC Prothromb Time International Ratio 0.9 RATIO Activated Partial Thromboplast Time 24.0 SEC Blood Urea Nitrogen 13 MG/DL Creatinine 0.77 MG/DL Random Glucose 95 MG/DL Total Protein 7.6 GM/DL Albumin 3.1 GM/DL Calcium Level 8.7 MG/DL Alkaline Phosphatase 77 U/L Aspartate Amino Transf (AST/SGOT) 61 U/L Alanine Aminotransferase (ALT/SGPT) 52 U/L Total Bilirubin 0.7 MG/DL Sodium Level 135 MEQ/L Potassium Level 3.9 MEQ/L Chloride Level 101 MEQ/L Carbon Dioxide Level 24.7 MEQ/L Anion Gap 9 MEQ/L Estimat Glomerular Filtration Rate 129 ML/MIN (J Carlos Sauer) Medical Decision Making Impression and Plan Impression: 1.) [facility] 2.) Concussion w/loss of consciousness, unknown period of time 3.) L3 vertebral body fracture 4.) Right L2 transverse process fracture 5.) Lower sternum fracture 6.) Left 1st & 2nd rib fractures 7.) Right carpus dislocation 8.) Left radius fracture 9.) Left ulna fracture 10.) Left triquetrum carpal bone fracture 11.) Thoracolumbar junction pain The patient is doing well post-operatively. He has no lower extremity sensorimotor deficits post-op. The numbness & tingling to the right hand has resolved and improved to the left. Post-op tachycardia resolved. PAU drain output is 40 mL since surgery as of this morning. CT brain unremarkable for any acute findings. CT cervical spine unremarkable for any acute cervical spine findings , noted are left-sided 1st & 2nd rib fractures. CT thoracic spine unremarkable for any acute thoracic spine findings , noted are a lower sternum and left-sided 1st & 2nd rib fractures. CT lumbar spine demonstrates an L3 vertebral body fracture w/minimal loss of height as well as a right L2 transverse process fracture. MRI lumbar spine demonstrates known L3 compression fracture. Broad- based posterior disc herniation w/moderate AP and lateral recess stenosis. Probable L2 contusion or nondisplaced fracture w/marrow edema. Abnormal T2 signal to the interspinous ligament between L2 and L3 which could be injury. Fracture through posterior elements of L3 at the superior spinous process. POD #1 () s/p: 1. Left L2-3 semi-laminectomy, evacuation epidural hematoma 2. Bilateral L2-L3 posterior lateral fusion, local autograft bone, cancellus bone chips, demineralized bone matrix. 3. Bilateral L2-L3 posterior instrumentation with pedicle screw fixation. Postoperative Diagnosis: (1) L3 vertebral fracture 1. L2-L3 fracture dislocation 2. Lumbar posttraumatic epidural hematoma Plan: Primary & critical care management per Trauma. Neuro checks. Stat CT brain for any decline in neuro/mental status. Diet as tolerated. HOB <= 30 degrees. TLSO brace when OOB. Mobilise patient w/assistance. Physical & Occupational Therapy eval & tx. Monitor PAU drain output. Hold pharmacologic DVT prophylaxis. Mechanical DVT prophylaxis. Stress ulcer prophylaxis. Continue IVF per Trauma. Pain medication per Trauma. Will keep PAU in place and reassess output in AM. Patient is able to be transferred to regular med/surg floor from Neurosurgery's perspective. (J Carlos Sauer) Attending Statement The exam, history, and the medical decision-making described in the above note were completed with the assistance of the mid-level provider. I reviewed and agree with the findings presented. I attest that I had a [id number] encounter with the patient on the same day, and personally performed and documented my assessment and findings in the medical record. PAU output decreasing-discontinue drain Increase out of bed with TLSO. Continue therapy Continue present medications Neurologic exam stable postoperative with no lower extremity sensory motor deficit. (Daniel Tyson MD) J Carlos Sauer Feb 07, 2018 09:39 Daniel Tyson MD Feb 08, 2018 21:13
[2018-02-07] MEDS: DOCUSATE SODIUM 50 MG/SENNA 8.6 MG TAB PO SCH ×2 (09:50→21:27)
[2018-02-07] MEDS: LIDOCAINE HCL 5% PATCH T-DERMAL SCH (09:51)
--- NOTE | 2018-02-07 12:59 | HHI.CCPN ---
Subjective Brief History YSLETA DEL SUR: This is a 22-year-old male who was out with friend last night at a local club. The patient does not remember anything past that. We are told he either jumped or fell from his sixth story balcony, and landed on the third floor. INJURIES: Sternum fx LEFT rib fx (1,2) L2 transverse process fx L3 vertebral body fx LEFT radius/ulna fx LEFT triquetrum carpal bone RIGHT carpus/wrist dislocation 24 Hour Review/Hospital Course 02/03/2018 PTD: 0 Patient lying in bed. No distress noted. Bilateral arms in splint and wrapped with Fabio bandage. Patient is able to move all extremities well and to command. He does complain of tingling in his right hand. Additionally, patient complains of pain in his back. 3 Patient remained stable He is neurologically intact Undergoing MRI lumbar spine Plan will be decided by neurosurgery according to this 02/05 Patient is stable from general trauma standpoint Preop for lumbar fixation with the neurosurgical Orthopedic and hand surgery inputs appreciated npo after MN February 06 Continues to be stable from general trauma standpoint Is going to the OR with Dr. Tyson for his lumbar spine fixation His pain medication was adjusted according to his needs He has been n.p.o. after midnight Orthopedic and hand surgery plans were appreciated Transfer to regular floor postop Mother was updated at the bedside 02/07/2018 Patient awake alert and oriented He underwent yesterday L2-L3 laminectomy evacuation of subdural hematoma and fusion with cancellous bone and pedicle screws Neurologically he is fully intact normal motoric motion of upper and lower extremities with normal strength bilateral no lateralization Hemodynamically patient is stable Bilateral breath sounds good pulmonary effort Plan Advance diet Transfer patient to floor Objective Vital Signs Date Time Temp Pulse Resp B/P (MAP) Pulse Ox O2 Delivery O2 Flow Rate FiO2 02/07/18 12:00 78 02/07/18 12:00 98.8 15 134/70 (91) 94 02/07/18 07:00 Nasal Cannula 2.00 02/05/18 20:44 21 Intake and Output 02/07/18 02/07/18 02/08/18 08:00 16:00 00:00 Intake Total 30 ml Output Total 1340 ml Balance -1310 ml Result Diagram: 02/06/18 0834 02/06/18 0834 Urinary Catheter Assessment Date of Insertion: Feb 03, 2018 Assessment and Plan Plan YSLETA DEL SUR: This is a 22-year-old male who was out at a club. Returned home. Fell/jumped from a 6 story balcony and landed on the third floor. INJURIES: Sternum fx LEFT rib fx (1,2) L2 transverse process fx L3 vertebral body fx LEFT radius/ulna fx LEFT triquetrum carpal bone RIGHT carpus/wrist dislocation Procedures: Consults: Neurosurgery. Orthopedics. Case management. Diet: NPO Pulmonary: Encourage good pulmonary toileting. IS and acapella at bedside and pt encouraged to use. Rationale for use explained to patient, and verbalized understanding. Duo nebs. PAIN Management: Elizabeth 5-10 mg q 4h. Morphine 2 mg q 3h. Robaxin 500 mg q 8h. Lidocaine patch Activity: BR. PT and OT ordered. Log roll only GI prophylaxis: Protonix IV Bowel regimen: Colace and MOM. LBM: 0 DVT prophylaxis: Mechanical VTE with SCDs. Chemical management TBD. DC Planning: Case management consulted for assistance with final discharge disposition. Emotional support provided to patient and family at bedside and plan of care discussed. Discussed with SECURITY SOFTWARE ENGINEER at bedside during trauma rounds. Discussed pt condition and plan of care with collaborating trauma surgeon. Patient is currently managed in the trauma ICU.. The trauma team will round each day, and evaluate plan of care on a daily basis. Assessment and Plan 02/04; continue pain control Discuss chemical DVT prophylaxis with neurosurgeon Follow-up MRI results Transfer floor Continue spinal precautions 02/05 Continue pain control Psych input appreciated patient's is for now on Miramontes act DVT prophylaxis Keep in ICU until postop February 06 Miramontes acted been lifted by psychiatric continue current care transfer to floor in 24 hours post Attestation Patient does not require ICU care He needs to be mobilized and aggressive PT OT is needed Lovenox to resume tomorrow Transfer to floor Critical care 32 minutes Yulia Escobar MD Feb 07, 2018 12:59
[2018-02-07 14:15] LABS: AUTOMATED NEUTROPHIL # 10.3 TH/MM3 (1.8-7.7); BASOPHIL % 0.1 % (0.0-2.0); EOSINOPHIL # 0.1 TH/MM3 (0-0.4); EOSINOPHIL % 0.6 % (0.0-4.0); HEMATOCRIT 34.5 % (39.0-51.0); HEMOGLOBIN 11.8 GM/DL (13.0-17.0); LYMPHOCYTE # 2.5 TH/MM3 (1.0-4.8); MEAN CELL VOLUME 91.3 FL (80.0-100.0); MEAN CORPUSCULAR HEMOGLOBIN 31.2 PG (27.0-34.0); MEAN CORPUSCULAR HGB CONC 34.1 % (32.0-36.0); MEAN PLATELET VOLUME 8.6 FL (7.0-11.0); MONO % 11.3 % (0.0-8.0); MONOCYTE # 1.6 TH/MM3 (0-0.9); PLATELET COUNT 245 TH/MM3 (150-450); RED BLOOD COUNT 3.78 MIL/MM3 (4.50-5.90); RED CELL DISTRIBUTION WIDTH 13.2 % (11.6-17.2); WHITE BLOOD COUNT 14.5 TH/MM3 (4.0-11.0)
[2018-02-07 14:44] LABS: BICARBONATE 28.9 MEQ/L (21.0-32.0); CREATININE 0.81 MG/DL (0.60-1.30)
[2018-02-07] MEDS: MAGNESIUM HYDROXIDE SUSP 30 ML CUP PO PRN (18:05)
[2018-02-07] MEDS: REMOVE OLD LIDOCAINE PATCH T-DERMAL SCH (21:00)
[2018-02-08] VITALS: BP 151/65; PULSE 91; RESP 18; TEMP 98.5; O2SAT 99
[2018-02-08] MEDS: ACETAMINOPHEN/HYDROcodone 325 MG/10 MG TAB PO PRN ×6 (02:01→20:23)
[2018-02-08] MEDS: MORPHINE SULFATE 4 MG/ML INJ IV PUSH PRN (02:47)
[2018-02-08] MEDS: CHLORHEXIDINE GLUCONATE 2 % 1 PACK (2 CLOTHS) TOP SCH (04:00)
[2018-02-08 04:24] LABS: AUTOMATED NEUTROPHIL # 6.8 TH/MM3 (1.8-7.7); BASOPHIL % 0.3 % (0.0-2.0); EOSINOPHIL # 0.1 TH/MM3 (0-0.4); EOSINOPHIL % 0.9 % (0.0-4.0); HEMATOCRIT 32.3 % (39.0-51.0); HEMOGLOBIN 11.3 GM/DL (13.0-17.0); LYMPH % 23.8 % (9.0-44.0); LYMPHOCYTE # 2.5 TH/MM3 (1.0-4.8); MEAN CELL VOLUME 89.7 FL (80.0-100.0); MEAN CORPUSCULAR HEMOGLOBIN 31.4 PG (27.0-34.0); MEAN CORPUSCULAR HGB CONC 34.9 % (32.0-36.0); MEAN PLATELET VOLUME 8.6 FL (7.0-11.0); MONO % 11.3 % (0.0-8.0); MONOCYTE # 1.2 TH/MM3 (0-0.9); NEUT % 63.7 % (16.0-70.0); PLATELET COUNT 236 TH/MM3 (150-450); RED CELL DISTRIBUTION WIDTH 13.4 % (11.6-17.2); WHITE BLOOD COUNT 10.7 TH/MM3 (4.0-11.0)
[2018-02-08 04:41] LABS: BICARBONATE 26.8 MEQ/L (21.0-32.0); CALCIUM 9.1 MG/DL (8.5-10.1); CREATININE 0.74 MG/DL (0.60-1.30)
[2018-02-08] MEDS: METHOCARBAMOL 500 MG TAB PO SCH ×3 (05:38→20:23)
[2018-02-08 08:00] VITALS: BP 153/70; PULSE 87; RESP 17; TEMP 98.2; O2SAT 95
[2018-02-08] MEDS: SODIUM CHLORIDE FLUSH BID IV FLUSH SCH ×2 (08:36→20:24)
[2018-02-08] MEDS: MAGNESIUM HYDROXIDE SUSP 30 ML CUP PO PRN (08:36)
[2018-02-08] MEDS: GABAPENTIN 300 MG CAP PO SCH ×3 (08:36→16:32)
[2018-02-08] MEDS: DOCUSATE SODIUM 50 MG/SENNA 8.6 MG TAB PO SCH ×2 (08:36→20:23)
[2018-02-08] MEDS: LIDOCAINE HCL 5% PATCH T-DERMAL SCH ×2 (08:37→20:23)
--- NOTE | 2018-02-08 10:17 | HHI.PR ---
Subjective Subjective Notes Pain controlled Requesting the Lidoderm patch at night Objective Vitals/I&O Vital Signs Date Time Temp Pulse Resp B/P (MAP) Pulse Ox O2 Delivery O2 Flow Rate FiO2 02/08/18 08:00 98.2 87 17 153/70 (97) 95 02/07/18 07:00 Nasal Cannula 2.00 02/05/18 20:44 21 Labs Laboratory Tests Test 02/07/18 13:36 02/08/18 03:32 White Blood Count 14.5 10.7 Red Blood Count 3.78 3.60 Hemoglobin 11.8 11.3 Hematocrit 34.5 32.3 Mean Corpuscular Volume 91.3 89.7 Mean Corpuscular Hemoglobin 31.2 31.4 Mean Corpuscular Hemoglobin Concent 34.1 34.9 Red Cell Distribution Width 13.2 13.4 Platelet Count 245 236 Mean Platelet Volume 8.6 8.6 Neutrophils (%) (Auto) 71.0 63.7 Lymphocytes (%) (Auto) 17.0 23.8 Monocytes (%) (Auto) 11.3 11.3 Eosinophils (%) (Auto) 0.6 0.9 Basophils (%) (Auto) 0.1 0.3 Neutrophils # (Auto) 10.3 6.8 Lymphocytes # (Auto) 2.5 2.5 Monocytes # (Auto) 1.6 1.2 Eosinophils # (Auto) 0.1 0.1 Basophils # (Auto) 0.0 0.0 CBC Comment DIFF FINAL DIFF FINAL Differential Comment Blood Urea Nitrogen 21 18 Creatinine 0.81 0.74 Random Glucose 103 98 Calcium Level 9.0 9.1 Sodium Level 135 133 Potassium Level 3.6 3.9 Chloride Level 98 99 Carbon Dioxide Level 28.9 26.8 Anion Gap 8 7 Estimat Glomerular Filtration Rate 121 135 Radiology Last Impressions Chest X-Ray 02/06/18 0600 Signed Impressions: Service Date/Time: January 05:02 - CONCLUSION: 1. No active disease. Cardiomegaly. Amando Fuentes MD Lumbar Spine X-Ray 02/06/18 0000 Signed Impressions: Service Date/Time: January 12:51 - CONCLUSION: Satisfactory operative appearance David Martin MD Radius/Ulna X-Ray 02/04/18 0000 Signed Impressions: Service Date/Time: Sunday, February 04, 2018 15:52 - CONCLUSION: Successful ORIF. David Soliman MD Lumbar Spine MRI 02/04/18 0000 Signed Impressions: Service Date/Time: Sunday, February 04, 2018 09:54 - CONCLUSION: 1. At L3 there is a mild compression fracture through the superior endplate with a broad- based moderate-sized posterior traumatic disc herniation resulting in moderate AP canal and lateral recess stenosis. 2. Probable contusion or nondisplaced fracture L2 with marrow edema present. 3. Abnormal T2 signal in the interspinous ligament between L2 and L3 which could represent a ligamentous injury. There is also a fracture extending through the posterior elements of L3 at the superior aspect of the spinous process. 4. The conus medullaris appears intact. Amando Fuentes MD Ankle X-Ray 02/04/18 0000 Signed Impressions: Service Date/Time: Sunday, February 04, 2018 12:58 - CONCLUSION: 1. No acute bony abnormality. Soft tissue swelling of the right ankle. Amando Fuentes MD Thoracic Spine CT 02/03/18221 Signed Impressions: Service Date/Time: Saturday, February 03, 2018 02:39 - CONCLUSION: 1. Fractures of the left first and second ribs. 2. Minimal fracture of the lower sternum. 3. No compression fracture of thoracic spine. Shelton Dunham MD Pelvis X-Ray 02/03/18221 Signed Impressions: Service Date/Time: Saturday, February 03, 2018 02:16 - CONCLUSION: No acute fracture. Shelton Dunham MD Lumbar Spine CT 02/03/18221 Signed Impressions: Service Date/Time: Saturday, February 03, 2018 02:39 - CONCLUSION: 1. Fracture of L3 vertebral body with mild loss of height. Fracture does extend into the both posterior elements. 2. Fracture of the right L2 transverse process. Shelton Dunham MD Head CT 02/03/18221 Signed Impressions: Service Date/Time: Saturday, February 03, 2018 02:32 - CONCLUSION: No acute intracranial disease. Shelton Dunham MD Chest CT 02/03/18221 Signed Impressions: Service Date/Time: Saturday, February 03, 2018 02:39 - CONCLUSION: 1. Left first and second rib fractures. 2. No pneumothorax. Shelton Dunham MD Cervical Spine CT 02/03/18221 Signed Impressions: Service Date/Time: Saturday, February 03, 2018 02:32 - CONCLUSION: 1. No fracture or subluxation. 2. Fracture of the first and second ribs on the left. Shelton Dunham MD Abdomen/Pelvis CT 02/03/18221 Signed Impressions: Service Date/Time: Saturday, February 03, 2018 02:39 - CONCLUSION: 1. Fracture L3 vertebral body with possible involvement of the posterior elements. 2. No abdominal visceral injury. Shelton Dunham MD Wrist X-Ray 02/03/18 0000 Signed Impressions: Service Date/Time: Saturday, February 03, 2018 18:04 - CONCLUSION: 1. Carpal dislocation as above. Amando Fuentes MD Narrative Exam GENERAL: 22-year-old well-nourished, well developed male lying in bed getting TLSO brace applied by RN and his mother. SKIN: Warm and dry. HEAD: Normocephalic. EYES: Pupils equal and round. No scleral icterus. ENT: No nasal bleeding or discharge. Mucous membranes pink and moist. NECK: Trachea midline. No JVD. CARDIOVASCULAR: Regular rate and rhythm. RESPIRATORY: No accessory muscle use. Lungs clear to auscultation. Breath sounds equal bilaterally. GASTROINTESTINAL: Abdomen soft, non-tender, nondistended. + BS. MUSCULOSKELETAL: Extremities without cyanosis, +2 LUE edema. BUE soft splints in place. MAEW, + perfused NEUROLOGICAL: Awake and alert. Normal speech. A/P Assessment and Plan [place]: Fell off a 6 story balcony landing on the third floor. ?LOC. INJURIES: Sternum fx LEFT rib fxs (1,2) L2 transverse process fx L3 vertebral body fx w/ epidural hematoma LEFT radius/ulna fx LEFT triquetrum carpal bone RIGHT carpus/wrist dislocation 02/04: ORIF LEFT radial and ulna fx 02/04: Open reduction of RIGHT perilunate dislocation 02/06: Left L2-3 semi-laminectomy, evacuation epidural hematoma, Bilateral L2-L3 posterior lateral fusion, local autograft bone, cancellus bone chips, demineralized bone matrix. Bilateral L2-L3 posterior instrumentation with pedicle screw fixation. Sternum fx, LEFT rib fxs Supportive care Pulmonary toileting Pain control Bowel regimen OOB- PT and OT ordered L3 vertebral body fx w/ epidural hematoma, L2 transverse process fx Neurosurgery consulted 02/06: Left L2-3 semi-laminectomy, evacuation epidural hematoma, Bilateral L2-L3 posterior lateral fusion, local autograft bone, cancellus bone chips, demineralized bone matrix. Bilateral L2-L3 posterior instrumentation with pedicle screw fixation. Pain control Bowel regimen OOB with TLSO brace PT and OT ordered Lovenox Remove Orellana catheter today LEFT radius/ulna fx, LEFT triquetrum carpal bone, RIGHT carpus/wrist dislocation Orthopedics consulted 02/04: ORIF LEFT radial and ulna fx 02/04: Open reduction of RIGHT perilunate dislocation Pain control Bowel regimen NWB BUE PT and OT ordered Plan of care discussed with patient, his mother and RN at bedside. Collaborating trauma M.Mary. agrees with plan. Case management consulted to assist with discharge planning. Haroldo Dallas Feb 08, 2018 10:17
[2018-02-08 12:00] VITALS: BP 174/108; PULSE 98; RESP 18; TEMP 97.7; O2SAT 97
[2018-02-08] MEDS: ENOXAPARIN SODIUM 40 MG/0.4 ML SYRINGE SQ SCH (13:37)
[2018-02-08 16:00] VITALS: BP 155/81; PULSE 99; RESP 18; TEMP 97.6; O2SAT 99
--- NOTE | 2018-02-08 17:11 | HHI.NSPN ---
(J Carlos Sauer) History Chief Complaint: Back and arm pain is better. (J Carlos Sauer) Interval History 02/03: Patient states that he was at [facility] with friends which is the last thing he remembers. The next thing he remembers is waking up in the bed in the [facility] unit. He does have some pain to the lower back and the neck. He denies any numbness or tingling to the extremities except for the fingertips. Mechanism unknown. 02/04: It is now known that the patient fell from a balcony onto another one. The patient is awake and alert when seen this morning. His family is at the bedside. He complains of low back pain. He denies any pain to the neck. He denies any numbness or tingling to the extremities. He does have pain to both upper extremities secondary to his injuries. He denies any headache, dizziness or nausea. No change is noted in his neuro exam. He is to go to surgery today for the upper extremity injuries. 02/05: The patient went for surgery yesterday for open reduction and internal fixation of his right wrist dislocation by Hand Surgery and the left radial and ulnar fractures by Orthopaedic Surgery. He returned to [facility] for further care and monitoring post-operatively. This morning the patient is awake and alert in the bed. He states he has pain at the surgical sites to the upper extremities. He does endorse soreness to the lower back. He has some numbness and tingling to the digits of both hands. Otherwise he has no other pain, numbness or tingling to the extremities. He denies any headache or dizziness. There is no change in his examination. 02/06: Patient went to the operating room to have a left L2-3 semi-laminectomy with evacuation of an epidural hematoma followed by a bilateral L2-L3 posterior lateral fusion and posterior instrumentation with pedicle screw fixation. Post- operatively the patient returned to [facility] for further care and management. 02/07: When seen this morning the patient is awake and alert, talking on the telephone and visiting with his mother. He says his back is "a little sore." He also has some pain to the upper extremities at the surgical sites. The numbness has improved to the hands with some still to the left hand but better. He denies any headache or dizziness. He has no pain, numbness or tingling to the lower extremities. He is neurologically intact to the lower extremities upon examination. 02/08: This afternoon the patient is awake and alert. He says he is doing good. He does have some pain to the back and arms which is better. He denies any pain , numbness or tingling to the lower extremities. No sensorimotor deficits noted upon examination and the back is mildly TTP. The patient reports being up to the chair the past two days. (J Carlos Saure) Exam Results 02/06/18 02/06/18 02/07/18 02/07/18 02/08/18 02/08/18 06:00 18:00 06:00 18:00 06:00 18:00 Intake Total 240 ml 1600 ml 30 ml Output Total 900 ml 1025 ml 1340 ml 14 ml 1400 ml Balance -660 ml 575 ml -1310 ml -14 ml -1400 ml Intake Oral 240 ml 0 ml 30 ml Other 1600 ml Output Urine Total 900 ml 750 ml 1325 ml 1400 ml Drainage Total 25 ml 15 ml 14 ml Estimated Blood Loss 250 ml # Bowel Movements 0 0 0 Vital Signs Date Time Temp Pulse Resp B/P (MAP) Pulse Ox O2 Delivery O2 Flow Rate FiO2 02/08/18 12:00 97.7 98 18 174/108 (130) 97 02/08/18 08:00 98.2 87 17 153/70 (97) 95 02/08/18 06:45 18 02/08/18 00:00 98.5 91 18 151/65 (93) 99 02/07/18 20:00 98.0 90 18 148/68 (94) 97 02/07/18 16:00 98.4 92 16 137/79 (98) 99 02/07/18 12:00 78 02/07/18 12:00 98.8 94 15 134/70 (91) 94 02/07/18 09:00 18 02/07/18 08:00 97.9 76 18 124/75 (91) 97 02/07/18 08:00 78 02/07/18 07:00 97 Nasal Cannula 2.00 02/07/18 06:00 78 02/07/18 04:00 76 02/07/18 04:00 98.2 76 21 128/65 (86) 96 02/07/18 02:00 85 02/07/18 00:00 99.3 89 22 144/72 (96) 96 02/07/18 00:00 89 02/06/18 22:00 92 02/06/18 20:00 92 02/06/18 20:00 98.3 80 17 155/78 (103) 96 02/06/18 19:00 97 Nasal Cannula 2.00 02/06/18 18:00 94 02/06/18 17:45 98.1 92 21 143/90 (107) 96 02/06/18 17:45 96 Nasal Cannula 2.00 02/06/18 17:30 98.8 92 16 148/75 (99) 96 Nasal Cannula 2 02/06/18 17:15 95 16 144/76 (98) 96 Nasal Cannula 2 02/06/18 17:00 103 16 152/76 (101) 97 Nasal Cannula 2 02/06/18 16:45 104 17 143/73 (96) 96 Nasal Cannula 2 02/06/18 16:30 105 17 142/73 (96) 97 Nasal Cannula 2 02/06/18 16:19 99.8 103 14 138/72 (94) 98 Nasal Cannula 2 02/06/18 09:51 98.1 84 14 142/90 (107) 97 02/06/18 09:51 97 Room Air 02/06/18 08:00 79 02/06/18 08:00 98.4 80 17 139/83 (101) 95 02/06/18 07:00 95 Room Air 02/06/18 06:00 88 02/06/18 04:00 97.7 76 20 131/78 (95) 97 02/06/18 04:00 77 02/06/18 02:00 86 02/06/18 00:00 98.6 92 20 146/71 (96) 95 02/06/18 00:00 92 02/05/18 22:00 92 02/05/18 20:44 98 21 02/05/18 20:00 96 Room Air 02/05/18 20:00 98.4 88 20 144/72 (96) 95 02/05/18 20:00 88 02/05/18 18:00 91 (J Carlos Sauer) Physical Examination GENERAL: Awake & alert in bed watching TV. Affect normal, readily interacts. No apparent distress. HEENT: Normocephalic, atraumatic. MUSCULOSKELETAL: Bilateral forearms in splints. Bilateral arms & lower extremities NTTP. Moves digits of both hands w/o difficulty. Moves BLE w/o any difficulty. Midline lumbar spine moderately TTP, upper portion of the dressing w /dried sanguinous drainage, PAU drain to bulb suction w/essentially serous drainage. NEUROLOGICAL: AAOx3. Speech clear & appropriate. Follows simple commands w/o difficulty. Sensation intact to light touch to the lower extremities. Motor strength of BLE is 5/5 to all major flexion & extension muscle groups. (J Carlos Sauer) Lab, Micro, Other Results Recent Impressions Chest X-Ray 02/06/18 0600 Signed Impressions: Service Date/Time: January 05:02 - CONCLUSION: 1. No active disease. Cardiomegaly. Amando Fuentes MD Lumbar Spine X-Ray 02/06/18 0000 Signed Impressions: Service Date/Time: January 12:51 - CONCLUSION: Satisfactory operative appearance David Martin MD Laboratory Tests Test 02/06/18 08:34 02/07/18 13:36 02/08/18 03:32 White Blood Count 8.8 TH/MM3 14.5 TH/MM3 10.7 TH/MM3 Red Blood Count 4.03 MIL/MM3 3.78 MIL/MM3 3.60 MIL/MM3 Hemoglobin 12.7 GM/DL 11.8 GM/DL 11.3 GM/DL Hematocrit 36.6 % 34.5 % 32.3 % Mean Corpuscular Volume 90.7 FL 91.3 FL 89.7 FL Mean Corpuscular Hemoglobin 31.5 PG 31.2 PG 31.4 PG Mean Corpuscular Hemoglobin Concent 34.7 % 34.1 % 34.9 % Red Cell Distribution Width 13.6 % 13.2 % 13.4 % Platelet Count 183 TH/MM3 245 TH/MM3 236 TH/MM3 Mean Platelet Volume 8.9 FL 8.6 FL 8.6 FL Neutrophils (%) (Auto) 64.1 % 71.0 % 63.7 % Lymphocytes (%) (Auto) 23.5 % 17.0 % 23.8 % Monocytes (%) (Auto) 11.3 % 11.3 % 11.3 % Eosinophils (%) (Auto) 0.8 % 0.6 % 0.9 % Basophils (%) (Auto) 0.3 % 0.1 % 0.3 % Neutrophils # (Auto) 5.7 TH/MM3 10.3 TH/MM3 6.8 TH/MM3 Lymphocytes # (Auto) 2.1 TH/MM3 2.5 TH/MM3 2.5 TH/MM3 Monocytes # (Auto) 1.0 TH/MM3 1.6 TH/MM3 1.2 TH/MM3 Eosinophils # (Auto) 0.1 TH/MM3 0.1 TH/MM3 0.1 TH/MM3 Basophils # (Auto) 0.0 TH/MM3 0.0 TH/MM3 0.0 TH/MM3 CBC Comment DIFF FINAL DIFF FINAL DIFF FINAL Differential Comment Prothrombin Time 9.6 SEC Prothromb Time International Ratio 0.9 RATIO Activated Partial Thromboplast Time 24.0 SEC Blood Urea Nitrogen 13 MG/DL 21 MG/DL 18 MG/DL Creatinine 0.77 MG/DL 0.81 MG/DL 0.74 MG/DL Random Glucose 95 MG/DL 103 MG/DL 98 MG/DL Total Protein 7.6 GM/DL Albumin 3.1 GM/DL Calcium Level 8.7 MG/DL 9.0 MG/DL 9.1 MG/DL Alkaline Phosphatase 77 U/L Aspartate Amino Transf (AST/SGOT) 61 U/L Alanine Aminotransferase (ALT/SGPT) 52 U/L Total Bilirubin 0.7 MG/DL Sodium Level 135 MEQ/L 135 MEQ/L 133 MEQ/L Potassium Level 3.9 MEQ/L 3.6 MEQ/L 3.9 MEQ/L Chloride Level 101 MEQ/L 98 MEQ/L 99 MEQ/L Carbon Dioxide Level 24.7 MEQ/L 28.9 MEQ/L 26.8 MEQ/L Anion Gap 9 MEQ/L 8 MEQ/L 7 MEQ/L Estimat Glomerular Filtration Rate 129 ML/MIN 121 ML/MIN 135 ML/MIN (J Carlos Sauer) Medical Decision Making Impression and Plan Impression: 1.) [facility] 2.) Concussion w/loss of consciousness, unknown period of time 3.) L3 vertebral body fracture 4.) Right L2 transverse process fracture 5.) Lower sternum fracture 6.) Left 1st & 2nd rib fractures 7.) Right carpus dislocation 8.) Left radius fracture 9.) Left ulna fracture 10.) Left triquetrum carpal bone fracture 11.) Thoracolumbar junction pain Patient continues to do well. His back pain is better. No sensorimotor deficits noted to the BLE. Elevated SBP at noon today. Reviewed labs for today. Resolution of leukocytosis. Mild drop in haemoglobin. Sodium 133. PAU drain output is 14 mL since surgery as of this morning. CT brain unremarkable for any acute findings. CT cervical spine unremarkable for any acute cervical spine findings , noted are left-sided 1st & 2nd rib fractures. CT thoracic spine unremarkable for any acute thoracic spine findings , noted are a lower sternum and left-sided 1st & 2nd rib fractures. CT lumbar spine demonstrates an L3 vertebral body fracture w/minimal loss of height as well as a right L2 transverse process fracture. MRI lumbar spine demonstrates known L3 compression fracture. Broad- based posterior disc herniation w/moderate AP and lateral recess stenosis. Probable L2 contusion or nondisplaced fracture w/marrow edema. Abnormal T2 signal to the interspinous ligament between L2 and L3 which could be injury. Fracture through posterior elements of L3 at the superior spinous process. POD #2 () s/p: 1. Left L2-3 semi-laminectomy, evacuation epidural hematoma 2. Bilateral L2-L3 posterior lateral fusion, local autograft bone, cancellus bone chips, demineralized bone matrix. 3. Bilateral L2-L3 posterior instrumentation with pedicle screw fixation. Postoperative Diagnosis: (1) L3 vertebral fracture 1. L2-L3 fracture dislocation 2. Lumbar posttraumatic epidural hematoma Plan: Primary & critical care management per Trauma. Neuro checks. Stat CT brain for any decline in neuro/mental status. Diet as tolerated. HOB <= 30 degrees. TLSO brace when OOB. Mobilise patient w/assistance. Physical & Occupational Therapy eval & tx. Hold pharmacologic DVT prophylaxis. Mechanical DVT prophylaxis. Stress ulcer prophylaxis. Continue IVF per Trauma. Pain medication per Trauma. D/c PAU drain. (J Carlos Sauer) Attending Statement The exam, history, and the medical decision-making described in the above note were completed with the assistance of the mid-level provider. I reviewed and agree with the findings presented. I attest that I had a [id number] encounter with the patient on the same day, and personally performed and documented my assessment and findings in the medical record. Complains of moderate back pain when out of bed. He sat up in the chair for quite a while today with a TLSO brace on Sensation intact by touch lower extremities Strength normal lower extremity major flexion-extension. Drain discontinued Doing well postop Continue pain meds, muscle relaxants Continue therapy (Daniel Tyson MD) J Carlos Sauer Feb 08, 2018 17:11 Daniel Tyson MD Feb 08, 2018 21:14
[2018-02-08 20:00] VITALS: BP 145/78; PULSE 97; RESP 20; TEMP 98.9; O2SAT 97
[2018-02-09] VITALS: BP 160/78; PULSE 92; RESP 21; TEMP 99.3; O2SAT 98
[2018-02-09] MEDS: ACETAMINOPHEN/HYDROcodone 325 MG/10 MG TAB PO PRN ×7 (00:29→21:51)
[2018-02-09] MEDS: CHLORHEXIDINE GLUCONATE 2 % 1 PACK (2 CLOTHS) TOP SCH (01:34)
[2018-02-09 04:00] VITALS: BP 154/78; PULSE 87; RESP 20; TEMP 98.1; O2SAT 99
[2018-02-09] MEDS: METHOCARBAMOL 500 MG TAB PO SCH ×3 (04:41→21:51)
[2018-02-09 08:00] VITALS: BP 145/76; PULSE 84; RESP 18; TEMP 97.8; O2SAT 97
[2018-02-09] MEDS ORDERED: KETOROLAC TROMETHAMINE 30 MG/ML (IVP) VIAL IV PUSH PRN (08:00)
[2018-02-09] MEDS: DOCUSATE SODIUM 50 MG/SENNA 8.6 MG TAB PO SCH ×2 (08:57→20:14)
[2018-02-09] MEDS: GABAPENTIN 300 MG CAP PO SCH ×3 (08:57→18:00)
[2018-02-09] MEDS: REMOVE OLD LIDOCAINE PATCH T-DERMAL SCH (09:00)
[2018-02-09] MEDS: SODIUM CHLORIDE FLUSH BID IV FLUSH SCH ×2 (09:12→20:17)
[2018-02-09] MEDS ORDERED: METH500T3 PO (11:41)
[2018-02-09] MEDS ORDERED: WHEEMIS3 (11:43)
[2018-02-09] MEDS ORDERED: BEDSIDE COMMODE1 MI1 (11:43)
--- NOTE | 2018-02-09 11:45 | HHI.FF ---
Face to Face Verification Diagnosis: (1) Dislocation of right wrist (2) L3 vertebral fracture (3) Left rib fracture (4) Sternum fx (5) Closed fracture of head of left ulna (6) Closed fracture of middle of left radius and ulna (7) Fracture of L2 vertebra Physical Therapy Order: Evaluate and Treat, Improve ambulation, Strength and gait training Home Health Nursing Order: Nursing assessment with vital signs I have seen patient Gume Madrigal on 02/09/18. My clinical findings support the need for the requested home health care services because: Limited ability to care for self High risk of falls I certify that my clinical findings support that this patient is homebound because: Unsteady gait/balance Haroldo Dallas Feb 09, 2018 11:45
[2018-02-09 12:00] VITALS: BP 165/76; PULSE 86; RESP 18; TEMP 97.8; O2SAT 97
[2018-02-09] MEDS: ENOXAPARIN SODIUM 40 MG/0.4 ML SYRINGE SQ SCH (12:19)
--- NOTE | 2018-02-09 13:42 | HHI.PR ---
Subjective Subjective Notes OOB to wheelchair Pain controlled Objective Vitals/I&O Vital Signs Date Time Temp Pulse Resp B/P (MAP) Pulse Ox O2 Delivery O2 Flow Rate FiO2 02/09/18 08:00 97.8 84 18 145/76 (99) 97 02/08/18 22:03 Room Air 02/07/18 07:00 2.00 02/05/18 20:44 21 Labs Laboratory Tests Test 02/03/18 02:20 02/03/18 03:00 02/06/18 08:34 02/08/18 03:32 Bedside Hemoglobin 14.6 G/DL Bedside Hematocrit 43.0 % Differential Total Cells Counted 100 Neutrophils % (Manual) 38 % Lymphocytes % 54 % Monocytes % 6 % Eosinophils % 1 % Basophils % 1 % Neutrophils # (Manual) 6.5 TH/MM3 Platelet Estimate NORMAL Platelet Morphology Comment NORMAL Red Cell Morphology Comment NORMAL Bedside Sodium 142 MMOL/L Bedside Potassium 3.6 MMOL/L Bedside Chloride 103 MMOL/L Bedside Blood Urea Nitrogen 14 MG/DL Bedside Creatinine 1.6 MG/DL Bedside Glucose 152 MG/DL Nasal Screen MRSA (PCR) MRSA NOT DETECTED Prothrombin Time 9.6 SEC Prothromb Time International Ratio 0.9 RATIO Activated Partial Thromboplast Time 24.0 SEC Blood Urea Nitrogen 13 MG/DL 18 MG/DL Creatinine 0.77 MG/DL 0.74 MG/DL Random Glucose 95 MG/DL 98 MG/DL Total Protein 7.6 GM/DL Albumin 3.1 GM/DL Calcium Level 8.7 MG/DL 9.1 MG/DL Alkaline Phosphatase 77 U/L Aspartate Amino Transf (AST/SGOT) 61 U/L Alanine Aminotransferase (ALT/SGPT) 52 U/L Total Bilirubin 0.7 MG/DL Sodium Level 135 MEQ/L 133 MEQ/L Potassium Level 3.9 MEQ/L 3.9 MEQ/L Chloride Level 101 MEQ/L 99 MEQ/L Carbon Dioxide Level 24.7 MEQ/L 26.8 MEQ/L White Blood Count 10.7 TH/MM3 Red Blood Count 3.60 MIL/MM3 Hemoglobin 11.3 GM/DL Hematocrit 32.3 % Mean Corpuscular Volume 89.7 FL Mean Corpuscular Hemoglobin 31.4 PG Mean Corpuscular Hemoglobin Concent 34.9 % Red Cell Distribution Width 13.4 % Platelet Count 236 TH/MM3 Mean Platelet Volume 8.6 FL Neutrophils (%) (Auto) 63.7 % Lymphocytes (%) (Auto) 23.8 % Monocytes (%) (Auto) 11.3 % Eosinophils (%) (Auto) 0.9 % Basophils (%) (Auto) 0.3 % Neutrophils # (Auto) 6.8 TH/MM3 Lymphocytes # (Auto) 2.5 TH/MM3 Monocytes # (Auto) 1.2 TH/MM3 Eosinophils # (Auto) 0.1 TH/MM3 Basophils # (Auto) 0.0 TH/MM3 CBC Comment DIFF FINAL Differential Comment Anion Gap 7 MEQ/L Estimat Glomerular Filtration Rate 135 ML/MIN Radiology Last Impressions Chest X-Ray 02/06/18 0600 Signed Impressions: Service Date/Time: January 05:02 - CONCLUSION: 1. No active disease. Cardiomegaly. Amando Fuentes MD Lumbar Spine X-Ray 02/06/18 0000 Signed Impressions: Service Date/Time: January 12:51 - CONCLUSION: Satisfactory operative appearance David Martin MD Radius/Ulna X-Ray 02/04/18 0000 Signed Impressions: Service Date/Time: Sunday, February 04, 2018 15:52 - CONCLUSION: Successful ORIF. David Soliman MD Lumbar Spine MRI 02/04/18 0000 Signed Impressions: Service Date/Time: Sunday, February 04, 2018 09:54 - CONCLUSION: 1. At L3 there is a mild compression fracture through the superior endplate with a broad- based moderate-sized posterior traumatic disc herniation resulting in moderate AP canal and lateral recess stenosis. 2. Probable contusion or nondisplaced fracture L2 with marrow edema present. 3. Abnormal T2 signal in the interspinous ligament between L2 and L3 which could represent a ligamentous injury. There is also a fracture extending through the posterior elements of L3 at the superior aspect of the spinous process. 4. The conus medullaris appears intact. Amando Fuentes MD Ankle X-Ray 02/04/18 0000 Signed Impressions: Service Date/Time: Sunday, February 04, 2018 12:58 - CONCLUSION: 1. No acute bony abnormality. Soft tissue swelling of the right ankle. Amando Fuentes MD Thoracic Spine CT 02/03/18221 Signed Impressions: Service Date/Time: Saturday, February 03, 2018 02:39 - CONCLUSION: 1. Fractures of the left first and second ribs. 2. Minimal fracture of the lower sternum. 3. No compression fracture of thoracic spine. Shelton Dunham MD Pelvis X-Ray 02/03/18221 Signed Impressions: Service Date/Time: Saturday, February 03, 2018 02:16 - CONCLUSION: No acute fracture. Shelton Dunham MD Lumbar Spine CT 02/03/18221 Signed Impressions: Service Date/Time: Saturday, February 03, 2018 02:39 - CONCLUSION: 1. Fracture of L3 vertebral body with mild loss of height. Fracture does extend into the both posterior elements. 2. Fracture of the right L2 transverse process. Shelton Dunham MD Head CT 02/03/18221 Signed Impressions: Service Date/Time: Saturday, February 03, 2018 02:32 - CONCLUSION: No acute intracranial disease. Shelton Dunham MD Chest CT 02/03/18221 Signed Impressions: Service Date/Time: Saturday, February 03, 2018 02:39 - CONCLUSION: 1. Left first and second rib fractures. 2. No pneumothorax. Shelton Dunham MD Cervical Spine CT 02/03/18221 Signed Impressions: Service Date/Time: Saturday, February 03, 2018 02:32 - CONCLUSION: 1. No fracture or subluxation. 2. Fracture of the first and second ribs on the left. Shelton Dunham MD Abdomen/Pelvis CT 02/03/18221 Signed Impressions: Service Date/Time: Saturday, February 03, 2018 02:39 - CONCLUSION: 1. Fracture L3 vertebral body with possible involvement of the posterior elements. 2. No abdominal visceral injury. Shelton Dunham MD Wrist X-Ray 02/03/18 Signed Impressions: Service Date/Time: Saturday, February 03, 2018 18:04 - CONCLUSION: 1. Carpal dislocation as above. Amando Fuentes MD Narrative Exam GENERAL: 22-year-old well-nourished, well developed male OOB in wheelchair with TLSO brace in place. SKIN: Warm and dry. HEAD: Normocephalic. EYES: Pupils equal and round. No scleral icterus. ENT: No nasal bleeding or discharge. Mucous membranes pink and moist. NECK: Trachea midline. No JVD. CARDIOVASCULAR: Regular rate and rhythm. RESPIRATORY: No accessory muscle use. Lungs clear to auscultation. Breath sounds equal bilaterally. GASTROINTESTINAL: Abdomen soft, non-tender, nondistended. + BS. MUSCULOSKELETAL: Extremities without cyanosis, +1 LUE edema. RUE soft splint with sling in place. LUE teri wrap. MAEW, + perfused NEUROLOGICAL: Awake and alert. Normal speech. A/P Assessment and Plan [place]: Fell off a 6 story balcony landing on the third floor. ?LOC. INJURIES: Sternum fx LEFT rib fxs (1,2) L2 transverse process fx L3 vertebral body fx w/ epidural hematoma LEFT radius/ulna fx LEFT triquetrum carpal bone RIGHT carpus/wrist dislocation 02/04: ORIF LEFT radial and ulna fx 02/04: Open reduction of RIGHT perilunate dislocation 02/06: Left L2-3 semi-laminectomy, evacuation epidural hematoma, Bilateral L2-L3 posterior lateral fusion, local autograft bone, cancellus bone chips, demineralized bone matrix. Bilateral L2-L3 posterior instrumentation with pedicle screw fixation. Sternum fx, LEFT rib fxs Supportive care Pulmonary toileting Pain control Bowel regimen OOB- PT and OT ordered L3 vertebral body fx w/ epidural hematoma, L2 transverse process fx Neurosurgery consulted 02/06: Left L2-3 semi-laminectomy, evacuation epidural hematoma, Bilateral L2-L3 posterior lateral fusion, local autograft bone, cancellus bone chips, demineralized bone matrix. Bilateral L2-L3 posterior instrumentation with pedicle screw fixation. Pain control Bowel regimen OOB with TLSO brace PT and OT ordered Lovenox LEFT radius/ulna fx, LEFT triquetrum carpal bone, RIGHT carpus/wrist dislocation Orthopedics consulted 02/04: ORIF LEFT radial and ulna fx 02/04: Open reduction of RIGHT perilunate dislocation Pain control Bowel regimen NWB BUE PT and OT ordered Plan of care discussed with patient, his mother and RN at bedside. Collaborating trauma Deangelo agrees with plan. Case management consulted to assist with discharge planning. Plan discharge home with home health care tomorrow. DME ordered. Haroldo Dallas MARINE DIVER Feb 09, 2018 13:42
[2018-02-09] MEDS ORDERED: PERI PO (13:50)
[2018-02-09] MEDS ORDERED: LACTULOSE SYRUP 20 GM/30 ML CUP PO ONE (14:00)
--- NOTE | 2018-02-09 15:40 | HHI.NSPN ---
History Chief Complaint: Back aches Interval History 02/03: Patient states that he was at [facility] with friends which is the last thing he remembers. The next thing he remembers is waking up in the bed in the [facility] unit. He does have some pain to the lower back and the neck. He denies any numbness or tingling to the extremities except for the fingertips. Mechanism unknown. 02/04: It is now known that the patient fell from a balcony onto another one. The patient is awake and alert when seen this morning. His family is at the bedside. He complains of low back pain. He denies any pain to the neck. He denies any numbness or tingling to the extremities. He does have pain to both upper extremities secondary to his injuries. He denies any headache, dizziness or nausea. No change is noted in his neuro exam. He is to go to surgery today for the upper extremity injuries. 02/05: The patient went for surgery yesterday for open reduction and internal fixation of his right wrist dislocation by Hand Surgery and the left radial and ulnar fractures by Orthopaedic Surgery. He returned to [facility] for further care and monitoring post-operatively. This morning the patient is awake and alert in the bed. He states he has pain at the surgical sites to the upper extremities. He does endorse soreness to the lower back. He has some numbness and tingling to the digits of both hands. Otherwise he has no other pain, numbness or tingling to the extremities. He denies any headache or dizziness. There is no change in his examination. 02/06: Patient went to the operating room to have a left L2-3 semi-laminectomy with evacuation of an epidural hematoma followed by a bilateral L2-L3 posterior lateral fusion and posterior instrumentation with pedicle screw fixation. Post- operatively the patient returned to [facility] for further care and management. 02/07: When seen this morning the patient is awake and alert, talking on the telephone and visiting with his mother. He says his back is "a little sore." He also has some pain to the upper extremities at the surgical sites. The numbness has improved to the hands with some still to the left hand but better. He denies any headache or dizziness. He has no pain, numbness or tingling to the lower extremities. He is neurologically intact to the lower extremities upon examination. 02/08: This afternoon the patient is awake and alert. He says he is doing good. He does have some pain to the back and arms which is better. He denies any pain , numbness or tingling to the lower extremities. No sensorimotor deficits noted upon examination and the back is mildly TTP. The patient reports being up to the chair the past two days. 02/09: The patient is awake in bed when seen this afternoon. He says he is doing good. His back is sore and he has some numbness to the fingers of the left hand but it is better. He denies any headache or dizziness. He has no pain , numbness or tingling to the lower extremities. No changes noted in his neuro exam. The patient reports that Case Management and his family are working on getting him home to [place]. Exam Results 02/07/18 02/07/18 02/08/18 02/08/18 02/09/18 02/09/18 06:00 18:00 06:00 18:00 06:00 18:00 Intake Total 30 ml 480 ml Output Total 1340 ml 14 ml 1405 ml 980 ml Balance -1310 ml -14 ml -1405 ml -500 ml Intake Oral 30 ml 480 ml Output Urine Total 1325 ml 1400 ml 980 ml Drainage Total 15 ml 14 ml 5 ml # Bowel Movements 0 Vital Signs Date Time Temp Pulse Resp B/P (MAP) Pulse Ox O2 Delivery O2 Flow Rate FiO2 02/09/18 08:00 97.8 84 18 145/76 (99) 97 02/09/18 05:21 18 02/09/18 04:00 98.1 87 20 154/78 (103) 99 02/09/18 00:00 99.3 92 21 160/78 (105) 98 02/08/18 22:03 Room Air 02/08/18 20:00 98.9 97 20 145/78 (100) 97 02/08/18 16:00 97.6 99 18 155/81 (105) 99 02/08/18 12:00 97.7 98 18 174/108 (130) 97 02/08/18 08:00 98.2 87 17 153/70 (97) 95 02/08/18 00:00 98.5 91 18 151/65 (93) 99 02/07/18 20:00 98.0 90 18 148/68 (94) 97 02/07/18 16:00 98.4 92 16 137/79 (98) 99 02/07/18 12:00 78 02/07/18 12:00 98.8 94 15 134/70 (91) 94 02/07/18 09:00 18 02/07/18 08:00 97.9 76 18 124/75 (91) 97 02/07/18 08:00 78 02/07/18 07:00 97 Nasal Cannula 2.00 02/07/18 06:00 78 02/07/18 04:00 76 02/07/18 04:00 98.2 76 21 128/65 (86) 96 02/07/18 02:00 85 02/07/18 00:00 99.3 89 22 144/72 (96) 96 02/07/18 00:00 89 02/06/18 22:00 92 02/06/18 20:00 92 02/06/18 20:00 98.3 80 17 155/78 (103) 96 02/06/18 19:00 97 Nasal Cannula 2.00 02/06/18 18:00 94 02/06/18 17:45 98.1 92 21 143/90 (107) 96 02/06/18 17:45 96 Nasal Cannula 2.00 02/06/18 17:30 98.8 92 16 148/75 (99) 96 Nasal Cannula 2 02/06/18 17:15 95 16 144/76 (98) 96 Nasal Cannula 2 02/06/18 17:00 103 16 152/76 (101) 97 Nasal Cannula 2 02/06/18 16:45 104 17 143/73 (96) 96 Nasal Cannula 2 02/06/18 16:30 105 17 142/73 (96) 97 Nasal Cannula 2 02/06/18 16:19 99.8 103 14 138/72 (94) 98 Nasal Cannula 2 Physical Examination GENERAL: Awake & alert in bed watching TV. Affect normal, readily interacts. No apparent distress. HEENT: Normocephalic, atraumatic. MUSCULOSKELETAL: Bilateral forearms in splints. Bilateral arms & lower extremities NTTP. Moves digits of both hands w/o difficulty. Moves BLE w/o any difficulty. In TLSO brace. NEUROLOGICAL: AAOx3. Speech clear & appropriate. Follows simple commands w/o difficulty. Sensation intact to light touch to the lower extremities. Motor strength of BLE is 5/5 to all major flexion & extension muscle groups. Lab, Micro, Other Results Laboratory Tests Test 02/07/18 13:36 02/08/18 03:32 White Blood Count 14.5 TH/MM3 10.7 TH/MM3 Red Blood Count 3.78 MIL/MM3 3.60 MIL/MM3 Hemoglobin 11.8 GM/DL 11.3 GM/DL Hematocrit 34.5 % 32.3 % Mean Corpuscular Volume 91.3 FL 89.7 FL Mean Corpuscular Hemoglobin 31.2 PG 31.4 PG Mean Corpuscular Hemoglobin Concent 34.1 % 34.9 % Red Cell Distribution Width 13.2 % 13.4 % Platelet Count 245 TH/MM3 236 TH/MM3 Mean Platelet Volume 8.6 FL 8.6 FL Neutrophils (%) (Auto) 71.0 % 63.7 % Lymphocytes (%) (Auto) 17.0 % 23.8 % Monocytes (%) (Auto) 11.3 % 11.3 % Eosinophils (%) (Auto) 0.6 % 0.9 % Basophils (%) (Auto) 0.1 % 0.3 % Neutrophils # (Auto) 10.3 TH/MM3 6.8 TH/MM3 Lymphocytes # (Auto) 2.5 TH/MM3 2.5 TH/MM3 Monocytes # (Auto) 1.6 TH/MM3 1.2 TH/MM3 Eosinophils # (Auto) 0.1 TH/MM3 0.1 TH/MM3 Basophils # (Auto) 0.0 TH/MM3 0.0 TH/MM3 CBC Comment DIFF FINAL DIFF FINAL Differential Comment Blood Urea Nitrogen 21 MG/DL 18 MG/DL Creatinine 0.81 MG/DL 0.74 MG/DL Random Glucose 103 MG/DL 98 MG/DL Calcium Level 9.0 MG/DL 9.1 MG/DL Sodium Level 135 MEQ/L 133 MEQ/L Potassium Level 3.6 MEQ/L 3.9 MEQ/L Chloride Level 98 MEQ/L 99 MEQ/L Carbon Dioxide Level 28.9 MEQ/L 26.8 MEQ/L Anion Gap 8 MEQ/L 7 MEQ/L Estimat Glomerular Filtration Rate 121 ML/MIN 135 ML/MIN Medical Decision Making Impression and Plan Impression: 1.) [facility] 2.) Concussion w/loss of consciousness, unknown period of time 3.) L3 vertebral body fracture 4.) Right L2 transverse process fracture 5.) Lower sternum fracture 6.) Left 1st & 2nd rib fractures 7.) Right carpus dislocation 8.) Left radius fracture 9.) Left ulna fracture 10.) Left triquetrum carpal bone fracture 11.) Thoracolumbar junction pain Patient is doing well. Less pain today. No sensorimotor deficits noted to the BLE. Elevated SBP at noon yesterday. CT brain unremarkable for any acute findings. CT cervical spine unremarkable for any acute cervical spine findings , noted are left-sided 1st & 2nd rib fractures. CT thoracic spine unremarkable for any acute thoracic spine findings , noted are a lower sternum and left-sided 1st & 2nd rib fractures. CT lumbar spine demonstrates an L3 vertebral body fracture w/minimal loss of height as well as a right L2 transverse process fracture. MRI lumbar spine demonstrates known L3 compression fracture. Broad- based posterior disc herniation w/moderate AP and lateral recess stenosis. Probable L2 contusion or nondisplaced fracture w/marrow edema. Abnormal T2 signal to the interspinous ligament between L2 and L3 which could be injury. Fracture through posterior elements of L3 at the superior spinous process. POD #3 () s/p: 1. Left L2-3 semi-laminectomy, evacuation epidural hematoma 2. Bilateral L2-L3 posterior lateral fusion, local autograft bone, cancellus bone chips, demineralized bone matrix. 3. Bilateral L2-L3 posterior instrumentation with pedicle screw fixation. Postoperative Diagnosis: (1) L3 vertebral fracture 1. L2-L3 fracture dislocation 2. Lumbar posttraumatic epidural hematoma Plan: Primary & critical care management per Trauma. Neuro checks. Stat CT brain for any decline in neuro/mental status. Diet as tolerated. HOB <= 30 degrees. TLSO brace when OOB. Mobilise patient w/assistance. Physical & Occupational Therapy eval & tx. Hold pharmacologic DVT prophylaxis. Mechanical DVT prophylaxis. Stress ulcer prophylaxis. Continue IVF per Trauma. Pain medication per Trauma. J Carlos Sauer Feb 09, 2018 15:40
[2018-02-09 16:00] VITALS: BP 151/72; PULSE 94; RESP 18; TEMP 98.2; O2SAT 96
[2018-02-09 20:00] VITALS: BP 165/80; PULSE 98; RESP 21; TEMP 98; O2SAT 98
[2018-02-09] MEDS: LIDOCAINE HCL 5% PATCH T-DERMAL SCH (20:17)
[2018-02-10] VITALS: BP 154/80; PULSE 89; RESP 20; TEMP 98.1; O2SAT 97
[2018-02-10] MEDS: ACETAMINOPHEN/HYDROcodone 325 MG/10 MG TAB PO PRN ×4 (01:42→11:24)
[2018-02-10 04:00] VITALS: BP 143/71; PULSE 79; RESP 20; TEMP 97.6; O2SAT 97
[2018-02-10] MEDS: CHLORHEXIDINE GLUCONATE 2 % 1 PACK (2 CLOTHS) TOP SCH (04:00)
[2018-02-10] MEDS: METHOCARBAMOL 500 MG TAB PO SCH ×2 (05:18→12:53)
[2018-02-10 08:00] VITALS: BP 163/76; PULSE 77; RESP 18; TEMP 98.6; O2SAT 97
--- NOTE | 2018-02-10 08:12 | PD.NP.DS ---
Discharge Summary Reason for Referral: The patient is a 22 year old right handed male status post multitraumatic injury secondary to a fall from the sixth to the third floor balcony on 2017. This patient was visiting [facility] for spring break vacation, and is originally from [place], [place], and is a college student in [place]. This patient has no prior psychiatric history, no previous suicidal attempts, or no previous psychiatric hospitalizations. He reported the use of alcohol and marijuana occasionally, and no significant medical history. On 02/03/2018, he presented in [place] via EMS as a trauma alert. The patient was apparently on the sixth floor balcony of the hotel where he somehow fell off landing on the third floor roof below him. When paramedics arrived, they found the patient to have a GCS of 8 and was intoxicated. He sustained multiple injuries including Left Radius/Ulna Shaft Fxs s/p ORIF - POD 1, Right Perilunate Dislocation of wrist s/p ORIF - POD 1. His head CT was within normal limits. Once medically stable, Psychiatry was consulted because the patient was [place] acted by law- enforcement with a concern of a potential suicidal attempt by jumping of a 6th floor. On psychiatric evaluation today the patient is found in his bed, and was described as calm and cooperative. The patient explained to the psychiatrist that he does not remember exactly the moment in which he jump off a 6 floor. He reported that he was unable to recall the circumstances at the moment he decided to do that. He reportedly does remember that especially in the afternoon he was drinking some alcohol, he says that he was aware that he could not get any alcohol inside the club at night. Once he was in the nightclub, his friends were sneaking beers to him. He became lost and walked back to the hotel, "and after that I do not really remember what happened". He reported that when he lost his friends, he felt abandoned, he felt a strange and despair. He does deny suicidal intentions in his actions. He says that he has been very happy, he was on vacation, he was enjoying his vacation. This patient is a second year college student, majoring in biology, and he plans to go to medical school. He reports having good grades, good friends, and a very good family support. His ACT score was 31. For Dr. Ayala, the patient is fully oriented 3, no attention deficit, no fluctuation of consciousness are present. During Dr. Ayala's evaluation the patient is mostly logical, coherent and relevant. At some point he seems to be a little bit guarded, and internally preoccupied, however no loosening of associations, no ideas of reference, no paranoia, no delusions, are present during this evaluation. Collateral information from his mother, Veronica Jones and also form his father, Vijay Jones was obtained. They both coincide that the patient was not depressed, he was just drunk and he did not try to commit suicide. They confirmed that the patient does not have any previous psychiatric history, there is no psychiatric history in the family, the patient has been at baseline , and not depressed symptoms, psychosis, marii has been perceived by day in the last days. They both feels responsible and safe with taking the patient back home once medically stable. They do not feel that the patient benefit or psychiatric admission at this moment. However, they both agree and looking for counseling for the patient once he is discharged. Given the severity of his injuries, this patient is referred for baseline neurobehavioral status examination per trauma protocol to assess cognitive, behavioral and emotional aspects of the injury and to provide treatment recommendations. Past Medical History: Please refer to the patient's history and physical for information concerning the patient's past medical, surgical, and psychiatric histories. Education/Learning Hx: The patient completed high school years of education and he is in college. There is no report of learning difficulties, grade repetitions or behavioral difficulties. The patient has a minimal work history given his student status. He is single, The patient lives in [place], [place]. Premorbid Cognitive, Emotional and Behavioral Status: Stable. The patient is in college and a brief work history prior to this injury. The patient has no prior psychiatric difficulties, as described above. Substance abuse history includes ETOH, which contributed to his injury. Behavioral Reactions of Patient and Family/Support System: Stable. The patient s family is experiencing ongoing issues of adjustment given the nature of the injury, and this aspect of recovery will require ongoing monitoring. Emotional/Behavioral Status of Patient and Family/Support System: Stable. Pertinent issues, if appropriate to this patients clinical care, are described in detail above. Treatment Interventions: During the course of their acute care stay, this patient and their family/ support system were provided information concerning the neuropsychological aspects of the injury, education regarding course of recovery, and psychological support in the form of counseling with the person served and the family/support system as documented in the neuropsychology service progress notes, as deemed clinically appropriate. Current, Cognitive, Emotional and Behavioral Status: Stable. This patient has experienced a severe injury, and will be adjusting to significant cognitive , emotional and behavioral challenges going forward. Impression at Discharge: The cognitive and behavioral status of this patient meets criteria for Unspecified Depressive Disorder CODE: F32.9 The above listed diagnoses are supported by the following clinical criteria: N/ A Status of Family/Support System Adjustment: Stable. The patients family/ support system will experience ongoing issues of adjustment given the nature of the injury, and this aspect of the patients recovery will require ongoing monitoring. Post Acute Recommendations: Professional consensus is that he get into some type of counseling post discharge to address substance use issues given his age. Thank you for the opportunity to assist in this patients care. Todd Gonzalez, Ph.D., ABPP Board Certified in Clinical Neuropsychology [place] [employer] [place] Licensed Psychologist #[id number] Todd Gonzalez PhD Feb 10, 2018 08:12
[2018-02-10] MEDS: DOCUSATE SODIUM 50 MG/SENNA 8.6 MG TAB PO SCH (08:27)
[2018-02-10] MEDS: GABAPENTIN 300 MG CAP PO SCH ×2 (08:27→12:53)
[2018-02-10] MEDS: SODIUM CHLORIDE FLUSH BID IV FLUSH SCH (08:27)
[2018-02-10] MEDS: REMOVE OLD LIDOCAINE PATCH T-DERMAL SCH (08:31)
--- NOTE | 2018-02-10 11:50 | HHI.NSPN ---
History Chief Complaint: Some pain to the back. Interval History 02/03: Patient states that he was at [facility] with friends which is the last thing he remembers. The next thing he remembers is waking up in the bed in the [facility] unit. He does have some pain to the lower back and the neck. He denies any numbness or tingling to the extremities except for the fingertips. Mechanism unknown. 02/04: It is now known that the patient fell from a balcony onto another one. The patient is awake and alert when seen this morning. His family is at the bedside. He complains of low back pain. He denies any pain to the neck. He denies any numbness or tingling to the extremities. He does have pain to both upper extremities secondary to his injuries. He denies any headache, dizziness or nausea. No change is noted in his neuro exam. He is to go to surgery today for the upper extremity injuries. 02/05: The patient went for surgery yesterday for open reduction and internal fixation of his right wrist dislocation by Hand Surgery and the left radial and ulnar fractures by Orthopaedic Surgery. He returned to [facility] for further care and monitoring post-operatively. This morning the patient is awake and alert in the bed. He states he has pain at the surgical sites to the upper extremities. He does endorse soreness to the lower back. He has some numbness and tingling to the digits of both hands. Otherwise he has no other pain, numbness or tingling to the extremities. He denies any headache or dizziness. There is no change in his examination. 02/06: Patient went to the operating room to have a left L2-3 semi-laminectomy with evacuation of an epidural hematoma followed by a bilateral L2-L3 posterior lateral fusion and posterior instrumentation with pedicle screw fixation. Post- operatively the patient returned to [facility] for further care and management. 02/07: When seen this morning the patient is awake and alert, talking on the telephone and visiting with his mother. He says his back is "a little sore." He also has some pain to the upper extremities at the surgical sites. The numbness has improved to the hands with some still to the left hand but better. He denies any headache or dizziness. He has no pain, numbness or tingling to the lower extremities. He is neurologically intact to the lower extremities upon examination. 02/08: This afternoon the patient is awake and alert. He says he is doing good. He does have some pain to the back and arms which is better. He denies any pain , numbness or tingling to the lower extremities. No sensorimotor deficits noted upon examination and the back is mildly TTP. The patient reports being up to the chair the past two days. 02/09: The patient is awake in bed when seen this afternoon. He says he is doing good. His back is sore and he has some numbness to the fingers of the left hand but it is better. He denies any headache or dizziness. He has no pain , numbness or tingling to the lower extremities. No changes noted in his neuro exam. The patient reports that Case Management and his family are working on getting him home to [place]. 02/10: When seen the patient is awake and alert. His mother is talking with Case Management. He says he is doing good and endorses some pain to the back. He denies any pain, numbness or tingling to the lower extremities. There is no change in the sensorimotor exam of the lower extremities. The mother reports that he is to be discharged today and they plan to fly home in a couple days. Nursing reports that the mother did get the patient into the shower and washed him, apparently with the TLSO brace on. Exam Results 02/08/18 02/08/18 02/09/18 02/09/18 02/10/18 02/10/18 06:00 18:00 06:00 18:00 06:00 18:00 Intake Total 480 ml 1200 ml Output Total 14 ml 1405 ml 980 ml 800 ml Balance -14 ml -1405 ml -500 ml 400 ml Intake Oral 480 ml 1200 ml Output Urine Total 1400 ml 980 ml 800 ml Drainage Total 14 ml 5 ml # Voids 2 Vital Signs Date Time Temp Pulse Resp B/P (MAP) Pulse Ox O2 Delivery O2 Flow Rate FiO2 02/10/18 08:00 98.6 77 18 163/76 (105) 97 02/10/18 04:00 97.6 79 20 143/71 (95) 97 02/10/18 00:00 98.1 89 20 154/80 (104) 97 02/09/18 20:00 98 Room Air 02/09/18 20:00 98.0 98 21 165/80 (108) 98 02/09/18 16:00 98.2 94 18 151/72 (98) 96 02/09/18 12:00 97.8 86 18 165/76 (105) 97 02/09/18 08:00 97.8 84 18 145/76 (99) 97 02/09/18 05:21 18 02/09/18 04:00 98.1 87 20 154/78 (103) 99 02/09/18 00:00 99.3 92 21 160/78 (105) 98 02/08/18 22:03 Room Air 02/08/18 20:00 98.9 97 20 145/78 (100) 97 02/08/18 16:00 97.6 99 18 155/81 (105) 99 02/08/18 12:00 97.7 98 18 174/108 (130) 97 02/08/18 08:00 98.2 87 17 153/70 (97) 95 02/08/18 00:00 98.5 91 18 151/65 (93) 99 02/07/18 20:00 98.0 90 18 148/68 (94) 97 02/07/18 16:00 98.4 92 16 137/79 (98) 99 02/07/18 12:00 78 02/07/18 12:00 98.8 94 15 134/70 (91) 94 Physical Examination GENERAL: Awake & alert in bed watching TV. Affect normal, readily interacts. No apparent distress. HEENT: Normocephalic, atraumatic. MUSCULOSKELETAL: Bilateral forearms in splints. Bilateral arms & lower extremities NTTP. Moves digits of both hands w/o difficulty. Moves BLE w/o any difficulty. Midline lumbar spine mildly TTP, dressing is dry & intact but has dried blood to the superior third. NEUROLOGICAL: AAOx3. Speech clear & appropriate. Follows simple commands w/o difficulty. Sensation intact to light touch to the lower extremities. Motor strength of BLE is 5/5 to all major flexion & extension muscle groups. Lab, Micro, Other Results Laboratory Tests Test 02/07/18 13:36 02/08/18 03:32 White Blood Count 14.5 TH/MM3 10.7 TH/MM3 Red Blood Count 3.78 MIL/MM3 3.60 MIL/MM3 Hemoglobin 11.8 GM/DL 11.3 GM/DL Hematocrit 34.5 % 32.3 % Mean Corpuscular Volume 91.3 FL 89.7 FL Mean Corpuscular Hemoglobin 31.2 PG 31.4 PG Mean Corpuscular Hemoglobin Concent 34.1 % 34.9 % Red Cell Distribution Width 13.2 % 13.4 % Platelet Count 245 TH/MM3 236 TH/MM3 Mean Platelet Volume 8.6 FL 8.6 FL Neutrophils (%) (Auto) 71.0 % 63.7 % Lymphocytes (%) (Auto) 17.0 % 23.8 % Monocytes (%) (Auto) 11.3 % 11.3 % Eosinophils (%) (Auto) 0.6 % 0.9 % Basophils (%) (Auto) 0.1 % 0.3 % Neutrophils # (Auto) 10.3 TH/MM3 6.8 TH/MM3 Lymphocytes # (Auto) 2.5 TH/MM3 2.5 TH/MM3 Monocytes # (Auto) 1.6 TH/MM3 1.2 TH/MM3 Eosinophils # (Auto) 0.1 TH/MM3 0.1 TH/MM3 Basophils # (Auto) 0.0 TH/MM3 0.0 TH/MM3 CBC Comment DIFF FINAL DIFF FINAL Differential Comment Blood Urea Nitrogen 21 MG/DL 18 MG/DL Creatinine 0.81 MG/DL 0.74 MG/DL Random Glucose 103 MG/DL 98 MG/DL Calcium Level 9.0 MG/DL 9.1 MG/DL Sodium Level 135 MEQ/L 133 MEQ/L Potassium Level 3.6 MEQ/L 3.9 MEQ/L Chloride Level 98 MEQ/L 99 MEQ/L Carbon Dioxide Level 28.9 MEQ/L 26.8 MEQ/L Anion Gap 8 MEQ/L 7 MEQ/L Estimat Glomerular Filtration Rate 121 ML/MIN 135 ML/MIN Medical Decision Making Impression and Plan Impression: 1.) Fall [facility] onto [facility] 2.) Concussion w/loss of consciousness, unknown period of time 3.) L3 vertebral body fracture 4.) Right L2 transverse process fracture 5.) Lower sternum fracture 6.) Left 1st & 2nd rib fractures 7.) Right carpus dislocation 8.) Left radius fracture 9.) Left ulna fracture 10.) Left triquetrum carpal bone fracture 11.) Thoracolumbar junction pain Patient continues to do well. Less pain today. There is no change in his sensorimotor exam to the BLE. SBP intermittently elevated the past [address] brain unremarkable for any acute findings. CT cervical spine unremarkable for any acute cervical spine findings , noted are left-sided 1st & 2nd rib fractures. CT thoracic spine unremarkable for any acute thoracic spine findings , noted are a lower sternum and left-sided 1st & 2nd rib fractures. CT lumbar spine demonstrates an L3 vertebral body fracture w/minimal loss of height as well as a right L2 transverse process fracture. MRI lumbar spine demonstrates known L3 compression fracture. Broad- based posterior disc herniation w/moderate AP and lateral recess stenosis. Probable L2 contusion or nondisplaced fracture w/marrow edema. Abnormal T2 signal to the interspinous ligament between L2 and L3 which could be injury. Fracture through posterior elements of L3 at the superior spinous process. POD #4 () s/p: 1. Left L2-3 semi-laminectomy, evacuation epidural hematoma 2. Bilateral L2-L3 posterior lateral fusion, local autograft bone, cancellus bone chips, demineralized bone matrix. 3. Bilateral L2-L3 posterior instrumentation with pedicle screw fixation. Postoperative Diagnosis: (1) L3 vertebral fracture 1. L2-L3 fracture dislocation 2. Lumbar posttraumatic epidural hematoma Plan: Primary management per Trauma. Neuro checks. Stat CT brain for any decline in neuro/mental status. Diet as tolerated. HOB <= 30 degrees. TLSO brace when OOB. Mobilise patient w/assistance. Physical & Occupational Therapy eval & tx. Hold pharmacologic DVT prophylaxis. Mechanical DVT prophylaxis. Stress ulcer prophylaxis. Pain medication per Trauma. Patient is able to be discharged from Neurosurgery's perspective. Patient should have a wound check approximately . Patient should have follow up with Neurosurgery approximately with lumbar AP & lateral view x-rays completed before. Patient should have follow up with Neurosurgery approximately with lumbar flexion & extension view x-rays completed before. J Carlos Sauer Feb 10, 2018 11:50
[2018-02-10 12:00] VITALS: BP 155/71; PULSE 88; RESP 18; TEMP 98; O2SAT 98
[2018-02-10] MEDS: ENOXAPARIN SODIUM 40 MG/0.4 ML SYRINGE SQ SCH (12:53)
--- NOTE | 2018-02-10 13:22 | HHI.DS ---
Discharge Summary Admission Date Feb 03, 2018 at 02:55 Discharge Date: Feb 10, 2018 Admitting Diagnosis left radius ulna fract, l4 fracture, rib fractures. (1) L3 vertebral fracture ICD Codes: S32.039A - Unspecified fracture of third lumbar vertebra, initial encounter for closed fracture Status: Acute (2) Left rib fracture ICD Codes: S22.32XA - Fracture of one rib, left side, initial encounter for closed fracture Status: Acute (3) Sternum fx ICD Codes: S22.20XA - Unspecified fracture of sternum, initial encounter for closed fracture Status: Acute (4) Dislocation of right wrist ICD Codes: S63.004A - Unspecified dislocation of right wrist and hand, initial encounter Status: Acute (5) Closed fracture of head of left ulna ICD Codes: S52.602A - Unspecified fracture of lower end of left ulna, initial encounter for closed fracture Status: Acute (6) Closed fracture of middle of left radius and ulna ICD Codes: S52.302A - Unspecified fracture of shaft of left radius, initial encounter for closed fracture; S52.202A - Unspecified fracture of shaft of left ulna, initial encounter for closed fracture Status: Acute (7) Right carpal tunnel syndrome ICD Codes: G56.01 - Carpal tunnel syndrome, right upper limb (8) Fall, initial encounter ICD Codes: W19.XXXA - Unspecified fall, initial encounter Diagnosis: Principal Brief History S/P Trauma Fall CBC/BMP: 02/08/18 0332 02/08/18 0332 Significant Findings Laboratory Tests Test 02/07/18 13:36 02/08/18 03:32 White Blood Count 14.5 TH/MM3 (4.0-11.0) Red Blood Count 3.78 MIL/MM3 (4.50-5.90) 3.60 MIL/MM3 (4.50-5.90) Hemoglobin 11.8 GM/DL (13.0-17.0) 11.3 GM/DL (13.0-17.0) Hematocrit 34.5 % (39.0-51.0) 32.3 % (39.0-51.0) Neutrophils (%) (Auto) 71.0 % (16.0-70.0) Monocytes (%) (Auto) 11.3 % (0.0-8.0) 11.3 % (0.0-8.0) Neutrophils # (Auto) 10.3 TH/MM3 (1.8-7.7) Monocytes # (Auto) 1.6 TH/MM3 (0-0.9) 1.2 TH/MM3 (0-0.9) Blood Urea Nitrogen 21 MG/DL (7-18) Sodium Level 135 MEQ/L (136-145) 133 MEQ/L (136-145) Imaging Last Impressions Chest X-Ray 02/06/18 0600 Signed Impressions: Service Date/Time: January 05:02 - CONCLUSION: 1. No active disease. Cardiomegaly. Amando Fuentes MD Lumbar Spine X-Ray 02/06/18 0000 Signed Impressions: Service Date/Time: January 12:51 - CONCLUSION: Satisfactory operative appearance David Martin MD Radius/Ulna X-Ray 02/04/18 0000 Signed Impressions: Service Date/Time: Sunday, February 04, 2018 15:52 - CONCLUSION: Successful ORIF. David Soliman MD Lumbar Spine MRI 02/04/18 0000 Signed Impressions: Service Date/Time: Sunday, February 04, 2018 09:54 - CONCLUSION: 1. At L3 there is a mild compression fracture through the superior endplate with a broad- based moderate-sized posterior traumatic disc herniation resulting in moderate AP canal and lateral recess stenosis. 2. Probable contusion or nondisplaced fracture L2 with marrow edema present. 3. Abnormal T2 signal in the interspinous ligament between L2 and L3 which could represent a ligamentous injury. There is also a fracture extending through the posterior elements of L3 at the superior aspect of the spinous process. 4. The conus medullaris appears intact. Amando Fuentes MD Ankle X-Ray 02/04/18 0000 Signed Impressions: Service Date/Time: Sunday, February 04, 2018 12:58 - CONCLUSION: 1. No acute bony abnormality. Soft tissue swelling of the right ankle. Amando Fuentes MD Thoracic Spine CT 02/03/18 0222 Signed Impressions: Service Date/Time: Saturday, February 03, 2018 02:39 - CONCLUSION: 1. Fractures of the left first and second ribs. 2. Minimal fracture of the lower sternum. 3. No compression fracture of thoracic spine. Shelton Dunham MD Pelvis X-Ray 02/03/18221 Signed Impressions: Service Date/Time: Saturday, February 03, 2018 02:16 - CONCLUSION: No acute fracture. Shelton Dunham MD Lumbar Spine CT 02/03/18221 Signed Impressions: Service Date/Time: Saturday, February 03, 2018 02:39 - CONCLUSION: 1. Fracture of L3 vertebral body with mild loss of height. Fracture does extend into the both posterior elements. 2. Fracture of the right L2 transverse process. Shelton Dunham MD Head CT 02/03/18221 Signed Impressions: Service Date/Time: Saturday, February 03, 2018 02:32 - CONCLUSION: No acute intracranial disease. Shelton Dunham MD Chest CT 02/03/18221 Signed Impressions: Service Date/Time: Saturday, February 03, 2018 02:39 - CONCLUSION: 1. Left first and second rib fractures. 2. No pneumothorax. Shelton Dunham MD Cervical Spine CT 02/03/18221 Signed Impressions: Service Date/Time: Saturday, February 03, 2018 02:32 - CONCLUSION: 1. No fracture or subluxation. 2. Fracture of the first and second ribs on the left. Shelton Dunham MD Abdomen/Pelvis CT 02/03/18221 Signed Impressions: Service Date/Time: Saturday, February 03, 2018 02:39 - CONCLUSION: 1. Fracture L3 vertebral body with possible involvement of the posterior elements. 2. No abdominal visceral injury. Shelton Dunham MD Wrist X-Ray 02/03/18 Signed Impressions: Service Date/Time: Saturday, February 03, 2018 18:04 - CONCLUSION: 1. Carpal dislocation as above. Amando Fuentes MD PE at Discharge GENERAL: 22-year-old well-nourished, well developed male lying in bed in no acute distress. SKIN: Warm and dry. HEAD: Normocephalic. EYES: Pupils equal and round. No scleral icterus. ENT: No nasal bleeding or discharge. Mucous membranes pink and moist. NECK: Trachea midline. No JVD. CARDIOVASCULAR: Regular rate and rhythm. RESPIRATORY: No accessory muscle use. Lungs clear to auscultation. Breath sounds equal bilaterally. GASTROINTESTINAL: Abdomen soft, non-tender, nondistended. + BS. MUSCULOSKELETAL: Extremities without cyanosis or edema. RUE soft splint with sling in place. LUE teri wrap. MAEW, + perfused NEUROLOGICAL: Awake and alert. Normal speech. Hospital Course [place] DEHE: Fell off a 6 story balcony landing on the third floor. ?LOC. INJURIES: Sternum fx LEFT rib fxs (1,2) L2 transverse process fx L3 vertebral body fx w/ epidural hematoma LEFT radius/ulna fx LEFT triquetrum carpal bone RIGHT carpus/wrist dislocation 02/04: ORIF LEFT radial and ulna fx 02/04: Open reduction of RIGHT perilunate dislocation 02/06: Left L2-3 semi-laminectomy, evacuation epidural hematoma, Bilateral L2-L3 posterior lateral fusion, local autograft bone, cancellus bone chips, demineralized bone matrix. Bilateral L2-L3 posterior instrumentation with pedicle screw fixation. Sternum fx, LEFT rib fxs Supportive care Pulmonary toileting Pain control Bowel regimen OOB- PT and OT ordered L3 vertebral body fx w/ epidural hematoma, L2 transverse process fx Neurosurgery consulted, F/U outpatient 02/06: Left L2-3 semi-laminectomy, evacuation epidural hematoma, Bilateral L2-L3 posterior lateral fusion, local autograft bone, cancellus bone chips, demineralized bone matrix. Bilateral L2-L3 posterior instrumentation with pedicle screw fixation. Pain control Bowel regimen OOB with TLSO brace PT and OT ordered Lovenox LEFT radius/ulna fx, LEFT triquetrum carpal bone, RIGHT carpus/wrist dislocation Orthopedics consulted, F/U outpatient 02/04: ORIF LEFT radial and ulna fx 02/04: Open reduction of RIGHT perilunate dislocation Pain control Bowel regimen NWB BUE PT and OT ordered F/U with PCP in 1 week Plan of care discussed with patient at bedside. Collaborating trauma M.Mary. agrees with plan. Case management consulted to assist with discharge planning. Patient is clear from Trauma surgery standpoint to safely discharge home with home health care. DME ordered. Pt Condition on Discharge: Stable Discharge Disposition: Disch w/ Home Health Serv Discharge Instructions DIET: Follow Instructions for: As Tolerated, No Restrictions Activities you can perform: See Additionl Instruction Activities to Avoid: Concussion Sports, Contact Sports, Lifting/Bending, Strenuous Activity Other Activity Instructions: Nonweightbearing bilateral arms, maintain sling right arm. TLSO brace when out of bed. No heavy lifting, no driving while on narcotics. Attending Statement The exam, history, and the medical decision-making described in the above note were completed with the assistance of the mid-level provider. I reviewed and agree with the findings presented. I attest that I had a [id number] encounter with the patient on the same day, and personally performed and documented my assessment and findings in the medical record. Haroldo Dallas Feb 10, 2018 13:22 Eleno Pardo MD Feb 11, 2018 11:29
[2018-02-10] MEDS ORDERED: LACTULOSE SYRUP 20 GM/30 ML CUP PO ONE (13:30)
== END 2018-02-10 15:18 | disposition home or self-care (01) | DRG 459 ==
LOC: NEPI 02:15 → EDBD 02:55 → NEDA 02:55 → N03A 03:00 → N06A 02-07 13:54
PROVIDERS: ADMIT Surgery; ATTEND Surgery
PROC: 0PSJ04Z Reposition Left Radius with Internal Fixation Device, Open Approach (ICD-10-PCS; 2018-02-04)
PROC: 01N50ZZ Release Median Nerve, Open Approach (ICD-10-PCS; 2018-02-04)
PROC: 0RSN04Z Reposition Right Wrist Joint with Internal Fixation Device, Open Approach (ICD-10-PCS; 2018-02-04)
PROC: 0PSL04Z Reposition Left Ulna with Internal Fixation Device, Open Approach (ICD-10-PCS; 2018-02-04 14:16)
PROC: 00CU0ZZ Extirpation of Matter from Spinal Canal, Open Approach (ICD-10-PCS; 2018-02-06)
PROC: 0SG0071 Fusion of Lumbar Vertebral Joint with Autologous Tissue Substitute, Posterior Approach, Posterior Column, Open Approach (ICD-10-PCS; principal; 2018-02-06 12:00)
DX: S32.029A Unspecified fracture of second lumbar vertebra, initial encounter for closed fracture (principal); S34.102A Unspecified injury to L2 level of lumbar spinal cord, initial encounter; S22.42XA Multiple fractures of ribs, left side, initial encounter for closed fracture; S22.20XA Unspecified fracture of sternum, initial encounter for closed fracture; S52.202A Unspecified fracture of shaft of left ulna, initial encounter for closed fracture; S06.0X9A Concussion with loss of consciousness of unspecified duration, initial encounter; S52.611A Displaced fracture of right ulna styloid process, initial encounter for closed fracture; S52.302A Unspecified fracture of shaft of left radius, initial encounter for closed fracture; S52.602A Unspecified fracture of lower end of left ulna, initial encounter for closed fracture; S32.039A Unspecified fracture of third lumbar vertebra, initial encounter for closed fracture; S63.004A Unspecified dislocation of right wrist and hand, initial encounter; D72.829 Elevated white blood cell count, unspecified; G56.01 Carpal tunnel syndrome, right upper limb; R79.89 Other specified abnormal findings of blood chemistry; F19.94 Other psychoactive substance use, unspecified with psychoactive substance-induced mood disorder; F10.129 Alcohol abuse with intoxication, unspecified; Y90.9 Presence of alcohol in blood, level not specified; R40.2431 Glasgow coma scale score 3-8, in the field [EMT or ambulance]; W13.0XXA Fall from, out of or through balcony, initial encounter
CPT/HCPCS: 25660; 70450; 71045; 71260; 72100; 72125; 72129; 72132; 72148; 72170; 73090; 73100; 73110; 73610; 74177; 76000; 76937; 80048; 80053; 85007; 85025; 85027; 85610; 85730; 86850; 86900; 86901; 87641; 94150; 94640; 94664; 94667; 94668; 99291; C1713; C9113; C9290; G0390; J0131; J0690; J1100; J1170; J1580; J1650; J2175; J2250; J2270; J2405; J3010; J3370; J3411; J7030; J7040; J7050; J7120; L0150; L0172; L0200; L0484; Q9967